=== PATIENT | male | born 1960 | race Caucasian/White ===

== ENCOUNTER 2019-05-10 15:22 | Inpatient (IN) | payer MEDICAID, SELFPAY ==
[2019-05-10] VITALS (7 sets, daily range): BP systolic 136–152; BP diastolic 86–93; PULSE 75–85; RESP 14–24; TEMP 36.7–36.9; O2SAT 96–98; BMI 34.4; BMI 33.4
--- NOTE | 2019-05-10 15:44 | EKG12_ITS ---
Test Reason : CP Blood Pressure : / mmHG Vent. Rate : 086 BPM Atrial Rate : 086 BPM P-R Int : 162 ms QRS Dur : 134 ms QT Int : 404 ms P-R-T Axes : 070 065 028 degrees QTc Int : 483 ms Normal sinus rhythm Right bundle branch block Cannot rule out Inferior infarct , age undetermined Abnormal ECG Confirmed by JAVIER GUDINO, WILFRED ([id number]), technical editor VERÓNICA DAMIAN ([id number]) on 05/11/2019 1:44:08 PM Referred By: Didi Sierra Confirmed By:WILFRED HERRERA MD
--- NOTE | 2019-05-10 16:02 | ED.VIS.CHEST ---
History of Present Illness Chief Complaint: Chest Pain Informant: Patient Narrative: Patient presenting for evaluation secondary to chest pain. Patient reports that about 2 hours prior to arrival he had an episode of chest pain. He reports that it was a heaviness in the left side of his chest started suddenly while he was at rest and was associated with a feeling of shortness of breath and some sweatiness. Patient states that he currently is pain-free. There is no exacerbating relieving factors associated with the chest pain. Patient denies any cardiovascular history, but he does have a history of hypertension hyperlipidemia and heavy smoking. He is never had provocative stress testing or cardiac catheterization in the past. Patient does report that he has been having profuse diarrhea this evening. He also reports that he has some urinary incontinence, but this is not new and he supposed to follow-up with a kidney specialist for this. Review of systems otherwise negative. Past Medical History - Allergies and Home Meds Allergies/Adverse Reactions: Allergies No Known Allergies Allergy (Verified 05/10/19 15:31) Primary Care Physician: Manolo Brewer DO [Primary Care Provider] - Surgical History: no surgical history Smoking Status: Current every day smoker Review of Systems All systems negative except as indicated General: Denies: Chills, Fever Cardiovascular: Reports: Chest pain. Denies: Palpitations Respiratory: Reports: Dyspnea Gastrointestinal: Reports: Diarrhea Genitourinary: Reports: - - Urinary incontinence Physical Exam Vital Signs/Narrative: Vital Signs Temp Pulse Resp BP Pulse Ox 05/10/19 15:29 98.4 F 85 14 136/90 H 97 General: Well nourished, Well developed, No Acute Distress Head: Normocephalic, Atraumatic Eyes: Perrl, EOMI ENT: Moist mucous membranes, No rhinorrhea, - - Patient's harris has tobacco staining Neck: Supple, Nontender Cardiovascular: Regular rate, Regular rhythm, Murmur - 2 out of 6 systolic at the right sternal border Respiratory: No distress, CTA bilaterally, Chest nontender Abdomen: Soft, Nontender, Nondistended, Normal bowel sounds Back: Nontender, Normal Inspection Extremities: Nontender, No edema Skin: Normal color, No rash Neurological: Alert, Oriented x3, Cranial nerves II-XII grossly intact, Normal Strength, Normal Sensation Psychological: Normal affect, Normal Mood Diagnostic/Tx/Re-eval - EKG Initial EKG Interpretation: - - Sinus rhythm of 86 with right bundle branch block morphology. Isoelectric ST segments. No gross changes from prior EKG. No evidence of acute ischemia or arrhythmia. - Medical Decision Making Patient presented secondary to chest pain. EKG showed a chronic right bundle branch block no ischemic changes. CBC chemistry and troponin were unremarkable. Chest x-ray was unremarkable. Patient's heart score is a 4, I believe he requires admission for cardiac rule out. I discussed this with the hospitalist and the patient will be admitted. ED Disposition - Plan for ED Patient: Disposition: Acute Care Hospital [facility] Diagnosis: Chest pain
--- NOTE | 2019-05-10 16:15 | RAD_ITS ---
STUDY: X-RAY CHEST REASON FOR EXAM: Male, 58 years old. Chest pain TECHNIQUE: PA and lateral views of the chest. COMPARISON: 08/05/2014. FINDINGS: There is a right azygos lobe The lungs are clear and expanded. There is no demonstrated pleural abnormality. Normal size heart. Normal mediastinum and michael. Normal visualized pulmonary arteries. Normal visualized aortic arch and descending thoracic aorta. Normal visualized thoracic spine. Normal visualized ribs, clavicles, and shoulders. There is no demonstrated abnormality of the visualized soft tissue structures of the upper abdomen. RAD/Chest PA and Lateral IMPRESSION: Normal x-ray examination of the chest. Electronically Signed: Anne Harrell, at 16:40 EDT Tel , Service support ,
[2019-05-10 16:28] LABS: Absolute Lymphocyte Count 1.06 X10^3/ul (0.83-4.51); Absolute Neutrophil Count 7.5 X10^3/uL (2.0-7.7); Basophil# 0.01 X10^3/uL; Basophil% 0.1 % (0-1); Hematocrit 43.1 % (40-54); Hemoglobin 14.6 g/dl (13.0-16.5); Lymphocyte # 1.06 X10^3/ul (4.0); Lymphocyte % 11.6 % (19-41); Mean Corp Hgb Conc 33.9 g/gl (32-36); Mean Corpuscular Hgb 29.6 pg (27.0-32.0); Mean Corpuscular Volume 87.2 fL (80-94); Mean Platelet Vol. 10.1 fl (6.2-12.0); Monocyte# 0.57 X10^3/uL; Monocyte% 6.3 % (0-10); Neutrophil # 7.45 X10^3/uL (2.7-7.7); Neutrophil % 81.8 % (47-70); POSITIVE COUNT NO; POSITIVE DIFFERENTIAL NO; POSITIVE MORPHOLOGY NO; Platelet Count 159 K/mm3 (150-450); RBC Distribution Width CV 13.2 % (11.6-14.6); RBC Distribution Width SD 41.3 fl (35.1-43.9); Red Blood Count 4.94 M/mm3 (4.6-6.2); White Blood Count 9.1 K/mm3 (4.4-11.0)
[2019-05-10] MEDS: Aspirin 81 MG TAB.CHEW 324 MG PO (16:29)
[2019-05-10 16:53] LABS: Anion Gap 10 (5-15); BUN 17 mg/dL (7-18); BUN/Creat Ratio 15.9 RATIO (10-20); Calcium,Total 9.4 mg/dL (8.5-10.1); Chloride 103 mmol/L (98-107); Creatinine, Serum 1.07 mg/dL (0.70-1.30); EST Glomerular Filtration Rate 76 mL/min (>60); Est Glom Filt Rate - Afr Amer 91 mL/min (>60); Estimated Creatinine Clearance 71.21 ml/min; Glucose 112 mg/dL (74-106); Sodium Level 138 mmol/L (136-145)
--- NOTE | 2019-05-10 18:16 | CASEMGMT ---
RN CM Assessment Introduced role of RN CM to patient, patient laila Capps at bedside.? Patient is alert, oriented and able?to participate in RN CM Assessment. ?Care providers, pharmacy, and demographics verified. Presentation: CP Admit Dx: CP Re-Admit: No Barriers/Issues: None PCP: Manolo Brewer Specialists: Psych- at [facility], states sees Nelsy Preferred Pharmacy: [place] Insurance: [employer] Benefit: Yes? LNOK: Laila Flanagan LW/HPOA: None, Would like to complete paperwork Living Arrangements:?Lives with Laila Capps and her Billy Nino in a 2 story home. Patient bedroom on upper level, approx 9-10 steps to bedroom. 3steps to enter home. ADL?s: Independent with ambulation and ADLs Transportation: Laila Capps's billy Gonzalez and same upon DC DME: None HHC: None SNF: None Goal: Home and does not think will have any needs. Denies questions/concerns. Aware CM remains available for any emerging needs. DC PLAN: Home with no needs anticipated at this time. Charmaine Miles RNCM
--- NOTE | 2019-05-10 18:17 | PCM.HP.STD ---
Problem List (1) Bipolar disorder Status: Chronic (2) Hyperlipidemia Status: Chronic (3) Hypertension Status: Chronic (4) Chest pain Status: Acute History of Present Illness Date of Admission: 05/10/19 Chief Complaint: Chest pain. The patient is a 58 year old M with past medical history as mentioned above presented to the emergency room because of chest pain. Patient presented with left-sided chest pain started around 2 hours before arriving to ED, on the left side of his chest, dull aching pain, 5-6 out of 10 severity, nonradiating, lasted for about 5 minutes, associated with shortness of breath and sweating and without aggravating or relieving factors. At this time, he is chest pain-free. He denied syncope, presyncope, palpitation or dizziness. In the emergency department, his vital signs were stable. His routine blood work was unremarkable. EKG revealed normal sinus rhythm with right bundle branch block which is chronic, no acute ischemic changes. Troponin was negative. Chest x-ray showed no acute findings. He is being admitted for chest pain for evaluation. Past Medical History Past Medical History (Chronic Problems): Chronic Problems Bipolar disorder (Chronic) Hyperlipidemia (Chronic) Hypertension (Chronic) Allergies No Known Allergies Allergy (Verified 05/10/19 15:31) Home Medications: Ambulatory Orders Medication Instructions Recorded Atenolol [Tenormin (beta ree)] 100 mg PO DAILY 05/10/19 Colestipol HCl 1 gm PO BID 05/10/19 Lansoprazole 30 mg PO DAILY 05/10/19 [place] Carbonate [[place] 900 mg PO QHS 05/10/19 Carbonate ER] Lorazepam [Ativan] 0.5 mg PO TID 05/10/19 Risperidone 8 mg PO QHS 05/10/19 Surgical History: appendectomy Psychiatric History: Anxiety, Bipolar Smoking Status: Current every day smoker Tobacco Use: Cigarettes Alcohol: None Drugs: None - *Family History Maternal History Items: - - No family history of CAD, hypertension or diabetes. Paternal History Items: - - No family history of CAD, hypertension or diabetes. Review of Systems Constitutional: Denies: Anorexia, Chills, Fever, Weakness Eyes: Denies: Blurred vision, Double vision, Drainage, Redness HEENT: Denies: Difficulty Hearing, Ear Pain, Eye Pain, Nasal Congestion, Sore Throat Cardiovascular: Reports: Chest Pain, Light Headedness. Denies: Edema, Heaviness, Orthopnea, Palpitations, Paroxysmal Noc. Dyspnea, Syncope Respiratory: Reports: Shortness of breath at rest. Denies: Cough, Hemoptysis, Pleuritic Pain, Sputum production, Wheezing Gastrointestinal: Reports: Nausea. Denies: Abdominal Pain, Constipation, Diarrhea, Vomiting Genitourinary: Denies: Dysuria, Frequency, Hematuria Musculoskeletal: Denies: Arm Pain, Back Pain, Foot Pain Skin: Denies: Dryness, Rash Neurological: Denies: Balance problems, Double vision, Change in Speech, Slurred speech, Focal weakness, Numbness, Tingling Psychiatric: Reports: Anxiety. Denies: Depression Endocrine: Denies: Change in Body Habitus, Polydipsia, Polyuria VTE Information - Inpt Only VTE Present on Admission: No VTE Mechan Device Prophylaxis: None VTE Pharm Prophylaxis ordered?: No Patient Problems: Active and Suspected Problems Chest pain (Acute) - Physical Exam General: Alert, Oriented x3, Cooperative, No apparent distress HEENT: Atraumatic, PERRLA, EOMI, Normocephalic Oral: Moist Mucosa, No Gingival or Mucosal Lesions/ Ulcerations Neck: Supple, No JVD, Negative Carotid Bruits, Trachea Midline, Thyroid Normal Size and Texture Lungs: Clear to auscultation, Normal air movement, No rhonchi, No wheeze, No rales, Diminished Cardiovascular: Regular rate, Regular Rhythm, Normal S1, Normal S2, PMI Normal Abdomen: Bowel Sounds Present, Soft, Non Tender, Non-Distended, No Hepato-splenomegaly Extremities: No clubbing, No cyanosis, No edema Skin: No rashes, No breakdown Lymphatic: No Cervical, Supraclavicular, or Inguinal Adenopathy Neurological: Cranial nerves II-XII grossly intact, Motor Exam 5/5 strength throughout Psych/Mental Status: Normal Affect, Impulsive Vital Signs Temp Pulse Resp BP Pulse Ox 98.4 F 77 21 H 152/92 H 96 05/10/19 15:29 05/10/19 18:03 05/10/19 18:03 05/10/19 18:03 05/10/19 18:03 Oxygen Delivery Method Room Air Weight: 219 lb 12.814 oz Body Mass Index (BMI) 34.4 Laboratory Tests Past 24 Hrs 05/10/19 05/10/19 16:10 16:10 WBC 9.1 RBC 4.94 Hgb 14.6 Hct 43.1 MCV 87.2 MCH 29.6 MCHC 33.9 RDW 13.2 RDW Differential 41.3 Plt Count 159 MPV 10.1 Immature Gran % (Auto) 0.200 Neut % (Auto) 81.8 H Lymph % (Auto) 11.6 L Nicholas % (Auto) 6.3 Eos % (Auto) 0.0 Baso % (Auto) 0.1 Absolute Neuts (auto) 7.5 Absolute Lymphs (auto) 1.06 Total Counted Not Reportable Sodium 138 Potassium 4.0 Chloride 103 Carbon Dioxide 25.0 Anion Gap 10 BUN 17 Creatinine 1.07 Estim Creat Clear Calc 71.21 Est GFR (MDRD) Af Amer 91 Est GFR (MDRD) Non-Af 76 BUN/Creatinine Ratio 15.9 Glucose 112 H Calcium 9.4 Troponin I < 0.015 Clinical Impression(s) from Imaging Studies Chest X-Ray 05/10/19 16:15 IMPRESSION: Normal x-ray examination of the chest. Electronically Signed: Anne Harrell, at 16:40 EDT Tel , Service support , Assessment/Plan All Active Problems Chest pain (Acute) This is a 58 years old male patient presented to the emergency room because of chest pain and he is being admitted for evaluation. #1 chest pain: Risk factors are hypertension, hyperlipidemia and smoking. No family history of premature CAD. EKG revealed no acute ischemic changes, troponin is negative. Chest x-ray was unremarkable. Plan: Admit to PCU for observation, cardiac monitoring, serial cardiac enzymes, sublingual nitroglycerin PRN for pain, IV fluids, IV antiemetics, start baby aspirin, fasting lipid profile, nuclear stress test tomorrow morning if cardiac enzymes are negative. #2 hypertension: Blood pressure stable, hold atenolol for stress test tomorrow morning, IV hydralazine PRN. #3 hyperlipidemia: Continue colestipol, fasting lipid profile. #4 bipolar disorder/anxiety: Stable, continue lithium, Ativan and risperidone. #5 DVT prophylaxis: Low risk patient, no prophylaxis indicated. This note was generated with [employer] software. It may contain incorrect words, spelling, and punctuation that were not noted in checking the note before signing. Code Visit OBSV E&M: 90395 Initial observation care L3
--- NOTE | 2019-05-10 19:25 | EKG12_ITS ---
Test Reason : CP ADMIT Blood Pressure : / mmHG Vent. Rate : 075 BPM Atrial Rate : 075 BPM P-R Int : 166 ms QRS Dur : 128 ms QT Int : 420 ms P-R-T Axes : 063 064 029 degrees QTc Int : 469 ms Normal sinus rhythm Right bundle branch block Abnormal ECG When compared with ECG of 10-MAY-2019 15:32, MANUAL COMPARISON REQUIRED, DATA IS UNCONFIRMED Confirmed by SVETLANA CHRISTIANSEN ([id number]), metropolitan editor VERÓNICA DAMIAN ([id number]) on 05/13/2019 2:00:02 PM Referred By: Didi Sierra Confirmed By:SVETLANA CHRISTIANSEN
[2019-05-10] MEDS: LORazepam 0.5 MG Tablet PO (21:39)
[2019-05-10] MEDS: 0.9% Normal Saline 1,000 ML 100 ML IV (21:39)
[2019-05-10] MEDS: RisperiDONE 2 MG Tablet 8 MG PO (21:41)
[2019-05-10] MEDS: Acetaminophen 325 MG Tablet 650 MG PO (22:36)
[2019-05-11] VITALS (14 sets, daily range): BP systolic 141–149; BP diastolic 73–89; PULSE 71–125; RESP 16–32; TEMP 36.6–39.6; O2SAT 95–100
[2019-05-11] MEDS: Acetaminophen 325 MG Tablet 650 MG PO (05:43)
[2019-05-11] MEDS: LORazepam 0.5 MG Tablet PO ×3 (05:44→21:45)
--- NOTE | 2019-05-11 05:46 | NURSING ---
pt had some ekg changes this am, up to the restroojm, c/o sob once back in the bed. temp 103.3 ta, 101.3 oral, pt does feel warm. tylenol given.
[2019-05-11 05:47] LABS: Absolute Lymphocyte Count 0.75 X10^3/ul (0.83-4.51); Absolute Neutrophil Count 7.1 X10^3/uL (2.0-7.7); Eosinophil# 0.01 X10^3/uL; Eosinophils% 0.1 % (0-5); Hematocrit 41.8 % (40-54); Hemoglobin 13.9 g/dl (13.0-16.5); Lymphocyte # 0.75 X10^3/ul (4.0); Lymphocyte % 8.9 % (19-41); Mean Corp Hgb Conc 33.3 g/gl (32-36); Mean Corpuscular Hgb 29.7 pg (27.0-32.0); Mean Corpuscular Volume 89.3 fL (80-94); Mean Platelet Vol. 10.8 fl (6.2-12.0); Monocyte# 0.56 X10^3/uL; Monocyte% 6.6 % (0-10); Neutrophil # 7.14 X10^3/uL (2.7-7.7); Neutrophil % 84.3 % (47-70); Platelet Count 158 K/mm3 (150-450); RBC Distribution Width CV 13.2 % (11.6-14.6); RBC Distribution Width SD 43.3 fl (35.1-43.9); Red Blood Count 4.68 M/mm3 (4.6-6.2); White Blood Count 8.5 K/mm3 (4.4-11.0)
[2019-05-11 05:52] LABS: International Normalized Ratio 1.1; Prothrombin Time (Protime)PT. 14.3 SECONDS (11.7-14.9)
[2019-05-11 05:53] LABS: POSITIVE COUNT NO; POSITIVE DIFFERENTIAL NO; POSITIVE MORPHOLOGY NO; Partial Thromboplast Time 31.8 Seconds (24.1-36.2)
--- NOTE | 2019-05-11 05:55 | EKG12_ITS ---
Test Reason : AM EKG Blood Pressure : / mmHG Vent. Rate : 124 BPM Atrial Rate : 124 BPM P-R Int : 142 ms QRS Dur : 118 ms QT Int : 348 ms P-R-T Axes : 073 071 012 degrees QTc Int : 499 ms Sinus tachycardia Inferior-posterior infarct , age undetermined Abnormal ECG When compared with ECG of 10-MAY-2019 19:04, MANUAL COMPARISON REQUIRED, DATA IS UNCONFIRMED Confirmed by SVETLANA CHRISTIANSEN ([id number]), writer editor VERÓNICA DAMIAN ([id number]) on 05/13/2019 2:01:50 PM Referred By: Didi Sierra Confirmed By:SVETLANA CHRISTIANSEN
--- NOTE | 2019-05-11 05:56 | NURSING ---
DR CAN NOTIFIED OF THE PTS TEMP , TACHYCARDIA AND EKG CHANGES. SHE WILL PUT IN ORDERS FOR BLOOD CULTURES.
--- NOTE | 2019-05-11 06:00 | PCM.PN.BLA ---
Progress Note night hospitalist: Patient is a 58-year-old male admitted to the hospital on 05/10/2019 complaining of chest pain. EKG showed right bundle branch block with first-degree AV block with no suspicious ST or T wave changes. Troponin x2 has been negative. Chest x-ray at admission showed no pleural effusions, infiltrates or pulmonary vascular congestion. Repeat EKG this a.m. prior to scheduled stress test no chest pain shows tachycardia with right bundle branch block and first-degree AV block, unchanged from prior EKG with the exception of tachycardia. Patient is febrile with temp to 103.4 ?F temporal. He is having diarrhea. Enteric pathogen panel has been ordered. We will also order fecal leukocytes, O&P, UA and blood cultures x2. C. difficile has also been ordered. No antibiotics at this time.
[2019-05-11 06:14] LABS: Anion Gap 9 (5-15); BUN 13 mg/dL (7-18); BUN/Creat Ratio 13.7 RATIO (10-20); Chloride 105 mmol/L (98-107); Cholesterol 155 mg/dL (200); Creatinine, Serum 0.95 mg/dL (0.70-1.30); EST Glomerular Filtration Rate 87 mL/min (>60); Est Glom Filt Rate - Afr Amer 105 mL/min (>60); Estimated Creatinine Clearance 80.21 ml/min; Glucose 120 mg/dL (74-106); High Density Lipoprotein 36 mg/dL; Potassium 3.7 mmol/L (3.5-5.1); Sodium Level 138 mmol/L (136-145); Triglycerides 139 mg/dL; Very Low Density Lipoprotein 28 mg/dL (5-40)
[2019-05-11] MEDS: Aspirin E.C. 81 MG Tablet PO (06:23)
[2019-05-11 07:30] LABS: Mucous, Urine 0 SEEN /hpf (<or=2+); Squamous Epithelial Cells - UA 0 SEEN /hpf (0-5); White Blood Cells 0 SEEN /hpf (0-5)
[2019-05-11 07:59] LABS: Color, Urine Yellow (Yellow); Glucose, Dipstick Normal (Normal); Ketone-Dipstick Negative (Negative); Leukocyte Esterase-Dipstick Negative /ul (Negative); Nitrite-Dipstick Negative (Negative); Occult Blood-Urine 25 /ul (Negative); Protein-Dipstick 100 mg/dl (Negative); Urine Bilirubin Dipstick Negative (Negative); Urine Clarity Clear (Clear); Urine Urobilinogen Normal (Normal); Urine pH 6.5 (5.0 - 8.0)
[2019-05-11 08:13] LABS: Red Blood Cells-Urine 0-5 SEEN /hpf (0-5)
[2019-05-11 08:14] LABS: Bacteria RARE /hpf (None Seen)
--- NOTE | 2019-05-11 08:19 | ECHOD_ITS ---
Reason For Study: CHEST PAIN Procedure This was a 2D Doppler, Color Flow transthoracic echocardiogram. Exam performed portable in patient room. Left Ventricle Normal LV size. Left ventricular systolic function is hyperdynamic. The estimated ejection fraction is 75 %. Transmitral doppler flow suggestive of impaired relaxation of left ventricle. No regional wall motion abnormalities noted. Right Ventricle Normal RV size. Normal systolic function. Atria Normal left atrium. Normal right atrium. No doppler evidence for ASD. Mitral Valve There is no mitral annular calcification. Normal mitral valve. Trivial mitral valve insufficiency. Tricuspid Valve Normal tricuspid valve. Trivial tricuspid valve insufficiency. Right ventricular systolic pressure estimated to be 10 mmHg. Aortic Valve Trisinus/trileaflet aortic valve. Mild focal aortic valve calcification. Pulmonic Valve The pulmonic valve is not well visualized. Trivial pulmonic valve insufficiency. Great Vessels Normal sized aortic root. Pericardium/Pleural No pericardial effusion. MMode/2D Measurements & Calculations LVIDd: 4.0 cm IVSd: 1.2 cm Ao root diam: 3.7 cm LVIDs: 2.3 cm LVPWd: 1.2 cm RVDd: 3.6 cm FS: 42.4 % LAV(MOD-bp): 36.6 ml LVAd ap4: 25.5 cm2 SV(MOD-sp4): 46.4 ml LAV(MOD-bp) Indexed: 17.6 ml/m2 EDV(MOD-sp4): 64.3 ml LAV(MOD-sp2): 41.2 ml EDV(sp4-el): 67.5 ml LAV(MOD-sp4): 29.5 ml LVAs ap4: 10.8 cm2 ESV(MOD-sp4): 17.9 ml ESV(sp4-el): 16.8 ml EF(MOD-sp4): 72.2 % EF(sp4-el): 75.0 % SV(sp4-el): 50.6 ml LA A4 area: 13.4 cm2 LA dimension(2D): 3.9 cm RA A4 area: 11.4 cm2 Time Measurements MV dec time: 0.38 sec Doppler Measurements & Calculations MV E max lázaro: 46.5 cm/sec Lat Peak E' Lázaro: 7.7 cm/sec Med Peak E' Lázaro: 6.3 cm/sec MV A max lázaro: 65.0 cm/sec E/E' lat: 6.0 E/E' med: 7.3 MV E/A: 0.72 Ao V2 max: 132.0 cm/sec LV V1 max: 133.9 cm/sec PA V2 max: 125.0 cm/sec Ao max P.0 mmHg LV V1 max P.2 mmHg TR max lázaro: 131.2 cm/sec TR max P.9 mmHg Interpretation Summary Left ventricular systolic function is hyperdynamic. The estimated ejection fraction is 75 %. Trivial mitral valve insufficiency. Trivial tricuspid valve insufficiency. Mild focal aortic valve calcification. Trivial pulmonic valve insufficiency. Right ventricular systolic pressure estimated to be 10 mmHg. Transmitral doppler flow suggestive of impaired relaxation of left ventricle Ordering Physician: Akua Mendes Referring Physician: MICHELLE HILTON Performed By: Lisha Mcpherson, MAYLIN, RVT
[2019-05-11] MEDS: 0.9% Normal Saline 1,000 ML 120 ML IV ×2 (08:57→21:45)
--- NOTE | 2019-05-11 09:50 | CASEMGMT ---
SW spoke with patient and his niece regarding advance directives. Patient was not feeling well as he was not allowed to eat. SW offered to check back later and they were in agreement with this plan. Johanne WEIR MSW
--- NOTE | 2019-05-11 11:21 | PCM.PN.HOSP ---
Patient Problems: Active and Suspected Problems Chest pain (Acute) Subjective: Patient seen and examined. He was admitted for chest pain yesterday. However during the night, he developed a fever and became tachycardic and tachypneic as well as started having diarrhea. Stool for enteric pathogen was sent and will start on antibiotics at that time. However this morning he still noted to be febrile, tachypneic and tachycardic. Patient denies any fever or chills but does admit to some mild shortness of breath. He denies any chest pain or palpitations, dizziness, or vomiting. He has not had any episodes of diarrhea this morning. Labs and vitals reviewed. He is now on 2 L of oxygen. He however does not have any leukocytosis. Vitals/I&O's: Vital Signs Temp Pulse Resp BP Pulse Ox 98.4 F 110 H 20 H 149/89 H 99 05/11/19 09:50 05/11/19 09:50 05/11/19 09:50 05/11/19 09:50 05/11/19 09:50 Oxygen Flow Rate (L/min) 2 Oxygen Delivery Method Room Air Weight: 213 lb 6.519 oz Body Mass Index (BMI) 33.4 Intake and Output for Last 24 Hours 05/09/19 05/10/19 05/11/19 23:59 23:59 23:59 Intake Total 1120 / 1120 Balance 1120 / 1120 General: Alert, Oriented x3, Cooperative, Lethargic HEENT: Atraumatic, PERRLA, EOMI, Normocephalic Oral: Dry Mucosa Neck: Supple, No JVD, Negative Carotid Bruits Lungs: - - mildly decreased breath sounds bibasally, no wheezes or rales. on 2L of oxygen Cardiovascular: Normal S1, Normal S2, No murmurs, Tachycardic Abdomen: Bowel Sounds Present, Soft, Non Tender, Non-Distended, No Hepato-splenomegaly Extremities: No clubbing, No cyanosis, No edema, Capillary Refill Less than 3 Seconds Skin: No rashes, No breakdown Musculoskeletal: No Tenderness to Palpation of Joints or Extremities Lymphatic: No Cervical, Supraclavicular, or Inguinal Adenopathy Neurological: Cranial nerves II-XII grossly intact, Neuro grossly intact, Motor Exam 5/5 strength throughout Psych/Mental Status: Normal Affect, Appropriate, Alert and oriented to time, place, person, mood and affect Microbiology Past 72 Hours 05/11/19 03:57 Stool Stool Lactoferrin - Final 05/11/19 03:57 Stool C. difficile DNA Amplification - Final Laboratory Results 05/10/19 16:10: WBC 9.1, RBC 4.94, Hgb 14.6, Hct 43.1, MCV 87.2, MCH 29.6, MCHC 33.9, RDW 13.2, RDW Differential 41.3, Plt Count 159, MPV 10.1, Immature Gran % (Auto) 0.200, Neut % (Auto) 81.8 H, Lymph % (Auto) 11.6 L, Mcdowell % (Auto) 6.3, Eos % (Auto) 0.0, Baso % (Auto) 0.1, Absolute Neuts (auto) 7.5, Absolute Lymphs (auto) 1.06, Total Counted Not Reportable 05/10/19 16:10: Sodium 138, Potassium 4.0, Chloride 103, Carbon Dioxide 25.0, Anion Gap 10, BUN 17, Creatinine 1.07, Estim Creat Clear Calc 71.21, Est GFR (MDRD) Af Amer 91, Est GFR (MDRD) Non-Af 76, BUN/Creatinine Ratio 15.9, Glucose 112 H, Calcium 9.4, Troponin I < 0.015 05/10/19 20:40: Troponin I < 0.015 05/10/19 23:05: Troponin I < 0.015 05/11/19 04:58: Sodium 138, Potassium 3.7, Chloride 105, Carbon Dioxide 24.0, Anion Gap 9, BUN 13, Creatinine 0.95, Estim Creat Clear Calc 80.21, Est GFR (MDRD) Af Amer 105, Est GFR (MDRD) Non-Af 87, BUN/Creatinine Ratio 13.7, Glucose 120 H, Calcium 9.0, Triglycerides 139, Cholesterol 155, LDL Cholesterol 91, VLDL Cholesterol 28, HDL Cholesterol 36 L 05/11/19 04:58: WBC 8.5, RBC 4.68, Hgb 13.9, Hct 41.8, MCV 89.3, MCH 29.7, MCHC 33.3, RDW 13.2, RDW Differential 43.3, Plt Count 158, MPV 10.8, Immature Gran % (Auto) 0.100, Neut % (Auto) 84.3 H, Lymph % (Auto) 8.9 L, Mcdowell % (Auto) 6.6, Eos % (Auto) 0.1, Baso % (Auto) 0.0, Absolute Neuts (auto) 7.1, Absolute Lymphs (auto) 0.75 L, Total Counted Not Reportable 05/11/19 04:58: PT 14.3, INR 1.1, APTT 31.8 05/11/19 06:20: Urine Color Yellow, Urine Clarity Clear, Urine pH 6.5, Ur Specific [place] 1.010, Urine Protein 100 H, Urine Glucose (UA) Normal, Urine Ketones Negative, Urine Occult Blood 25 H, Urine Nitrite Negative, Urine Bilirubin Negative, Urine Urobilinogen Normal, Ur Leukocyte Esterase Negative, Urine RBC 0-5 SEEN, Urine WBC 0 SEEN, Ur Squamous Epith Cells 0 SEEN, Urine Bacteria RARE, Urine Mucus 0 SEEN Diagnostic Data Chest X-Ray 05/10/19 16:15 IMPRESSION: Normal x-ray examination of the chest. Electronically Signed: Anne Harrell, at 16:40 EDT Tel , Service support , Current Medications Acetaminophen (Tylenol) 650 mg PO Q6H PRN PRN PRN Reason: Mild pain 1-3/Temp > 100.7 F Last Admin: 05/11/19 05:43 Dose: 650 mg Documented by: Aspirin (Ecotrin) 81 mg PO DAILY@0800 [facility] Last Admin: 05/11/19 06:23 Dose: 81 mg Documented by: Colestipol HCl (Colestid Tablet) 1 gm PO BID [facility] Hydralazine HCl (Apresoline Iv) 5 mg IV Q6H PRN PRN PRN Reason: for SBP>160 Vancomycin IV Pharmacy to Dose (1 ea/ Sodium Chloride) 500 mls @ 250 mls/hr IV X1 PRN; Protocol PRN Reason: Rx to Dose Piperacillin Sod/Tazobactam (Sod 3.375 gm/ Sodium Chloride) 50 mls @ 12.5 mls/hr IV Q8 [facility] Last Admin: 05/11/19 08:56 Dose: 12.5 mls/hr Documented by: Sodium Chloride () 1,000 mls @ 120 mls/hr IV .Q8H20M [facility] Last Admin: 05/11/19 08:57 Dose: 120 mls/hr Documented by: Vancomycin HCl 1,750 mg/ (Sodium Chloride) 535 mls @ 250 mls/hr IV Q12H [facility] Last Admin: 05/11/19 10:54 Dose: 250 mls/hr Documented by: [place] Carbonate (Eskalith Cr) 900 mg PO QHS [facility] Lorazepam (Ativan) 0.5 mg PO TID [facility] Last Admin: 05/11/19 05:44 Dose: 0.5 mg Documented by: Nitroglycerin (Nitrostat) 0.4 mg SUBLINGUAL Q5M PRN PRN Reason: CHEST PAIN Ondansetron HCl (Zofran) 4 mg IV Q8H PRN PRN PRN Reason: NAUSEA/VOMITING Pantoprazole Sodium (Protonix) 40 mg PO DAILY [facility] Last Admin: 05/11/19 10:41 Dose: Not Given Documented by: Risperidone (Risperdal) 8 mg PO QHS [facility] Last Admin: 05/10/19 21:41 Dose: 8 mg Documented by: Sodium Chloride () 10 - 40 ml IV UD PRN PRN Reason: SALINE FLUSH Medical Necessity - Tobacco Use Smoking Status: Current every day smoker Tobacco Use: Cigarettes Assessment/Plan All Active Problems Chest pain (Acute) 1. Sepsis due to possible community acquired pneumonia vs gastroenteritis patient was admitted with chest pain however, overnight he developed diarrhea; he subsequently spiked a fever, peaking at 103.3F, and was also tachycardic and tachypneic patient denies any cough, but is very drowsy during review has no leucocytosis; SIRS criteria is 3/4 this morning CXR was read as normal, but per my review, there appears to be a questionable right lower lobe opacity blood cultures pending start IV vancomycin and zosyn check urine for strep and legionella UA showed no evidence of UTI check lactic acid, and hydrate with IVF NS 500cc bolus, and continue with 75cc/hr get 2D echo 2. Gastroenteritis: diarrhea is improving. Stool for enteric pathogen and C Diff pending. Hydrate with IVF. 3. Chest pain: didnt recur overnight. In light of sepsis, will hold off on stress test for now until he is stable and acute process has resolved. Troponins x3 were negative. Continue baby aspirin. 4. Hyperlipidemia: On colestipol. Lipid panel was within normal limits. 5. Hypertension: Atenolol on hold as he was due to stress test this morning. IV hydralazine PRN. Continue atenolol. 6. Bipolar disorder and anxiety: On lithium, Ativan and Risperdal. DVT prophylaxis: will start Lovenox. Code Visit Inpatient E&M: 86174 Subs Hosp L3
[2019-05-11 12:03] LABS: Lactic Acid 1.7 mmol/L (0.4-2.0)
[2019-05-11] MEDS: Enoxaparin 40 MG/0.4 ML Syringe SC (13:08)
[2019-05-11] MEDS: Atenolol 100 MG Tablet PO (13:08)
--- NOTE | 2019-05-11 13:45 | CASEMGMT ---
This RN CM to room to complete CM assessment and pt is sleeping without distress. Pt does not awaken to knock on door or verbal stimuli at this time. Will attempt again later. SStaten RN CM
[2019-05-11] MEDS: RisperiDONE 2 MG Tablet 8 MG PO (21:49)
[2019-05-12] VITALS (12 sets, daily range): BP systolic 119–139; BP diastolic 71–83; PULSE 60–95; RESP 15–20; TEMP 36.6–36.8; O2SAT 94–98
[2019-05-12] MEDS: LORazepam 0.5 MG Tablet PO ×3 (05:28→22:52)
[2019-05-12 07:08] LABS: Absolute Neutrophil Count 4.6 X10^3/uL (2.0-7.7); Basophil# 0.01 X10^3/uL; Basophil% 0.1 % (0-1); Eosinophil# 0.11 X10^3/uL; Eosinophils% 1.5 % (0-5); Hematocrit 38.6 % (40-54); Hemoglobin 12.7 g/dl (13.0-16.5); Lymphocyte % 23.8 % (19-41); Mean Corp Hgb Conc 32.9 g/gl (32-36); Mean Corpuscular Hgb 29.5 pg (27.0-32.0); Mean Corpuscular Volume 89.6 fL (80-94); Mean Platelet Vol. 10.5 fl (6.2-12.0); Monocyte# 0.74 X10^3/uL; Monocyte% 10.3 % (0-10); Neutrophil # 4.58 X10^3/uL (2.7-7.7); Neutrophil % 64.2 % (47-70); Platelet Count 143 K/mm3 (150-450); RBC Distribution Width CV 13.5 % (11.6-14.6); RBC Distribution Width SD 43.5 fl (35.1-43.9); Red Blood Count 4.31 M/mm3 (4.6-6.2); White Blood Count 7.2 K/mm3 (4.4-11.0)
[2019-05-12 07:12] LABS: POSITIVE COUNT NO; POSITIVE DIFFERENTIAL NO; POSITIVE MORPHOLOGY NO
[2019-05-12 08:06] LABS: Anion Gap 5 (5-15); BUN 8 mg/dL (7-18); BUN/Creat Ratio 7.3 RATIO (10-20); Calcium,Total 8.8 mg/dL (8.5-10.1); Chloride 109 mmol/L (98-107); Creatinine, Serum 1.09 mg/dL (0.70-1.30); EST Glomerular Filtration Rate 74 mL/min (>60); Est Glom Filt Rate - Afr Amer 89 mL/min (>60); Estimated Creatinine Clearance 69.91 ml/min; Glucose 97 mg/dL (74-106); Sodium Level 141 mmol/L (136-145)
[2019-05-12] MEDS: 0.9% Normal Saline 1,000 ML 120 ML IV (08:11)
[2019-05-12] MEDS: Enoxaparin 40 MG/0.4 ML Syringe SC (08:12)
[2019-05-12] MEDS: Atenolol 100 MG Tablet PO (08:13)
[2019-05-12] MEDS: Aspirin E.C. 81 MG Tablet PO (08:13)
[2019-05-12] MEDS: Pantoprazole Sodium 40 MG Tablet PO (08:13)
--- NOTE | 2019-05-12 11:01 | NURSING ---
vanc not on unit for pt administration-Rx aware of missing dose
--- NOTE | 2019-05-12 11:02 | CASEMGMT ---
FORTINO RED assessment: Face to Face with patient for initial transition planning/care coordination assessment. FORTINO RED introduced self and role at [facility], pt voices understanding and consents to assessment at this time. Pt is sitting up in bed in no distress at this time. Pt is A/Ox4 at this time and answers all questions appropriately at this time. Care providers, pharmacy, and demographics verified at this time. PCP: [facility] Specialists: Pt states currently has no specialists. Preferred Pharmacy: [facility] Insurance: [facility] Prescription Benefit: [employer] Living Will/HPOA: Pt states has not currently have LW/HPOA but was given paperwork by Janice MILLARD and states that 'my niece is working on that.' LNOK: Génesis Flanagan, niece; Judy Purvis, friend Living Arrangements: Pt states lives with niece in 2 story home and states no concerns at home at this time. Pt states is independent with ADL's. Transportation: Pt states nephew drives and states no transportation concerns at this time. DME/HHC: Pt states has no current DME or need for any at this time. Pt states no hx of HHC or SNF in the past. Pt states no concerns with going home at time of discharge. Pt states is disabled. Pt states smokes a 1/2pk/day and states does not drink ETOH. Pt states no further concerns/needs at this time. CM to follow for PT/OT notes and for any further discharge planning/needs. Advised pt to ask for CM if any further questions/concerns/needs arise, voices understanding. Pt Goal: Home Plan: Home SStaten FORTINO RED
--- NOTE | 2019-05-12 12:51 | PN_ITS ---
Patient Problems: Active and Suspected Problems Chest pain (Acute) Subjective: Patient seen and examined. He had an uneventful night. He had an episode of diarrhea this morning. He denies any fever, any chills, and palpitations or dizziness, no chest pain, otherwise negative. Labs and vitals reviewed. Vitals/I&O's: Vital Signs Temp Pulse Resp BP Pulse Ox 98.0 F 67 18 132/77 H 94 05/12/19 07:40 05/12/19 10:59 05/12/19 08:39 05/12/19 07:40 05/12/19 08:39 Oxygen Flow Rate (L/min) 2 Oxygen Delivery Method Room Air Weight: 213 lb 6.519 oz Body Mass Index (BMI) 33.4 Intake and Output for Last 24 Hours 05/10/19 05/11/19 05/12/19 23:59 23:59 23:59 Intake Total 1720 / 3184 3443 / 3443 Balance 1720 / 3184 3443 / 3443 General: Alert, Oriented x3, Cooperative, Lethargic HEENT: Atraumatic, PERRLA, EOMI, Normocephalic Oral: Dry Mucosa Neck: Supple, No JVD, Negative Carotid Bruits Lungs: - - mildly decreased breath sounds bibasally, no wheezes or rales. on 2L of oxygen Cardiovascular: Normal S1, Normal S2, No murmurs, Tachycardic Abdomen: Bowel Sounds Present, Soft, Non Tender, Non-Distended, No Hepato- splenomegaly Extremities: No clubbing, No cyanosis, No edema, Capillary Refill Less than 3 Seconds Skin: No rashes, No breakdown Musculoskeletal: No Tenderness to Palpation of Joints or Extremities Lymphatic: No Cervical, Supraclavicular, or Inguinal Adenopathy Neurological: Cranial nerves II-XII grossly intact, Neuro grossly intact, Motor Exam 5/5 strength throughout Psych/Mental Status: Normal Affect, Appropriate, Alert and oriented to time, place, person, mood and affect Microbiology Past 72 Hours 05/12/19 10:35 Urine, Clean Catch Streptococcus pneumoniae Antigen (M - Lisa l 05/12/19 10:35 Urine, Clean Catch Legionella Antigen - Final 05/11/19 06:20 Urine, Clean Catch Urine Culture - Preliminary Culture exhibits no growth. 05/11/19 03:57 Stool Stool Lactoferrin - Final 05/11/19 03:57 Stool C. difficile DNA Amplification - Final Laboratory Results 05/12/19 06:30: WBC 7.2, RBC 4.31 L, Hgb 12.7 L, Hct 38.6 L, MCV 89.6, MCH 29.5, MCHC 32.9, RDW 13.5, RDW Differential 43.5, Plt Count 143 L, MPV 10.5, Immature Gran % (Auto) 0.100, Neut % (Auto) 64.2, Lymph % (Auto) 23.8, [place] % (Auto) 10.3 H, Eos % (Auto) 1.5, Baso % (Auto) 0.1, Absolute Neuts (auto) 4.6, Absolute Lymphs (auto) 1.70, Total Counted Not Reportable 05/12/19 06:30: Sodium 141, Potassium 4.0, Chloride 109 H, Carbon Dioxide 27.0, Anion Gap 5, BUN 8, Creatinine 1.09, Estim Creat Clear Calc 69.91, Est GFR (MDRD) Af Amer 89, Est GFR (MDRD) Non-Af 74, BUN/Creatinine Ratio 7.3 L, Glucose 97, Calcium 8.8 Diagnostic Data Chest X-Ray 05/10/19 16:15 IMPRESSION: Normal x-ray examination of the chest. Electronically Signed: Anne Harrell, at 16:40 EDT Tel , Service support , Current Medications Acetaminophen (Tylenol) 650 mg PO Q6H PRN PRN PRN Reason: Mild pain 1-3/Temp > 100.7 F Last Admin: 05/11/19 05:43 Dose: 650 mg Documented by: Aspirin (Ecotrin) 81 mg PO DAILY@0800 [facility] Last Admin: 05/12/19 08:13 Dose: 81 mg Documented by: Atenolol (Tenormin (Beta Sanjuana)) 100 mg PO DAILY [facility] Last Admin: 05/12/19 08:13 Dose: 100 mg Documented by: Enoxaparin Sodium (Lovenox) 40 mg SC DAILY [facility] Last Admin: 05/12/19 08:12 Dose: 40 mg Documented by: Hydralazine HCl (Apresoline Iv) 5 mg IV Q6H PRN PRN PRN Reason: for SBP>160 Vancomycin IV Pharmacy to Dose (1 ea/ Sodium Chloride) 500 mls @ 250 mls/hr IV X1 PRN; Protocol PRN Reason: Rx to Dose Piperacillin Sod/Tazobactam (Sod 3.375 gm/ Sodium Chloride) 50 mls @ 12.5 mls/hr IV Q8 [facility] Last Admin: 05/12/19 05:28 Dose: 12.5 mls/hr Documented by: Sodium Chloride () 1,000 mls @ 120 mls/hr IV .Q8H20M [facility] Last Admin: 05/12/19 08:11 Dose: 120 mls/hr Documented by: Vancomycin HCl 1,750 mg/ (Sodium Chloride) 535 mls @ 250 mls/hr IV Q12H [facility] Last Admin: 05/12/19 11:05 Dose: 250 mls/hr Documented by: [place] Carbonate (Eskalith Cr) 900 mg PO QHS [facility] Lorazepam (Ativan) 0.5 mg PO TID [facility] Last Admin: 05/12/19 05:28 Dose: 0.5 mg Documented by: Nitroglycerin (Nitrostat) 0.4 mg SUBLINGUAL Q5M PRN PRN Reason: CHEST PAIN Ondansetron HCl (Zofran) 4 mg IV Q8H PRN PRN PRN Reason: NAUSEA/VOMITING Pantoprazole Sodium (Protonix) 40 mg PO DAILY [facility] Last Admin: 05/12/19 08:13 Dose: 40 mg Documented by: Risperidone (Risperdal) 8 mg PO QHS [facility] Last Admin: 05/11/19 21:49 Dose: 8 mg Documented by: Sodium Chloride () 10 - 40 ml IV UD PRN PRN Reason: SALINE FLUSH Medical Necessity - Tobacco Use Smoking Status: Current every day smoker Tobacco Use: Cigarettes Assessment/Plan All Active Problems Chest pain (Acute) 1. Sepsis due to possible community acquired pneumonia vs gastroenteritis * tachypnea and tachycardia have resolved * still had an episode of diarrhea this morning * on IV vancomycin and IV zosyn * urine for strep and legionella antigens negative. blood cultures pending * C Diff negative * stool ova and parasites and enteric pathogens pending * continue IV vancomycin and zosyn for now * 2D echo report * ; Normal left ventricular size with hyperdynamic left ventricular systolic function and EF of 75%. RVSP is 10 mmHg. * * 2. Gastroenteritis: Had an episode of diarrhea this morning. C. difficile is negative. Stool for enteric pathogen pending. 3. Chest pain: * didnt recur overnight. * Troponins x3 were negative. * Continue baby aspirin. * For stress test tomorrow, since patient has improved. 4. Hyperlipidemia: On colestipol. Lipid panel was within normal limits. 5. Hypertension: on atenolol. IV hydralazine prn. 6. Bipolar disorder and anxiety: On lithium, Ativan and Risperdal. DVT prophylaxis: lovenox. Code Visit Inpatient E&M: 36910 Subs Hosp L3
[2019-05-12] MEDS: RisperiDONE 2 MG Tablet 8 MG PO (22:52)
[2019-05-12 23:14] LABS: Vancomycin, Trough Level 12.1 ug/mL (5.0-15.0)
[2019-05-13] MEDS: 0.9% Normal Saline 1,000 ML 120 ML IV (00:01)
--- NOTE | 2019-05-13 00:51 | PCM.RX.CS ---
Consult Pharmacy has been consulted to manage selected antiobiotic: Vancomycin Type of Consult: Follow-up Suspected Infection: Sepsis Prior Doses of Antibiotics Received/Current Regimen: Medications Vancomycin HCl 1,500 mg/ (Sodium Chloride) 530 mls @ 250 mls/hr IV Q8H [facility] Discontinued Medications Vancomycin HCl 1,750 mg/ (Sodium Chloride) 535 mls @ 250 mls/hr IV Q12H [facility] Last Admin: 05/13/19 00:00 Dose: 250 mls/hr Labs: Sodium 141 mmol/L (136-145) 05/12/19 06:30 Potassium 4.0 mmol/L (3.5-5.1) 05/12/19 06:30 Chloride 109 mmol/L (98-107) H 05/12/19 06:30 Carbon Dioxide 27.0 mmol/L (21.0-32.0) 05/12/19 06:30 5 (5-15) 05/12/19 06:30 BUN 8 mg/dL (7-18) 05/12/19 06:30 1.09 mg/dL (0.70-1.30) 05/12/19 06:30 Est GFR (MDRD) Af Amer 89 mL/min (>60) 05/12/19 06:30 Est GFR (MDRD) Non-Af 74 mL/min (>60) 05/12/19 06:30 7.3 RATIO (10-20) L 05/12/19 06:30 Glucose 97 mg/dL (74-106) 05/12/19 06:30 Vancomycin Trough 12.1 ug/mL (5.0-15.0) 05/12/19 22:32 Microbiology: Microbiology 05/12/19 10:35 Urine, Clean Catch Streptococcus pneumoniae Antigen (M - Final 05/12/19 10:35 Urine, Clean Catch Legionella Antigen - Final 05/11/19 06:20 Urine, Clean Catch Urine Culture - Preliminary Culture exhibits no growth. 05/11/19 03:57 Stool Stool Lactoferrin - Final 05/11/19 03:57 Stool C. difficile DNA Amplification - Final Weight used for dosin.8 kg Estimated Creatinine Clearance: 70 Goal Trough: 15-20 mcg/mL Pharmacy Plan for Drug Dosing: Trough level 05/12/19 was 12.1, below the target range of 15-20. Dosing was increased to 1500mg q8h. Another trough will be drawn before 4th dose of new order. Pharmacy Service will continue to monitor and adjust dosing as required. Follow-Up Labs: Trough Vancomycin Labs to be done on [date and time ordered]: 05/14/19 @[id number]
--- NOTE | 2019-05-13 05:00 | EKG12_ITS ---
Test Reason : AM EKG Blood Pressure : / mmHG Vent. Rate : 072 BPM Atrial Rate : 072 BPM P-R Int : 156 ms QRS Dur : 126 ms QT Int : 444 ms P-R-T Axes : 065 063 028 degrees QTc Int : 486 ms Normal sinus rhythm Right bundle branch block Abnormal ECG When compared with ECG of 11-MAY-2019 05:33, MANUAL COMPARISON REQUIRED, DATA IS UNCONFIRMED Confirmed by ZEKE GUDINO, FIDE ([id number]), news copy editor VERÓNICA DAMIAN ([id number]) on 05/14/2019 12:44:24 PM Referred By: Didi Sierra Confirmed By:ISSAC ALANIS MD
[2019-05-13 05:44] LABS: Absolute Lymphocyte Count 1.85 X10^3/ul (0.83-4.51); Basophil# 0.01 X10^3/uL; Basophil% 0.2 % (0-1); Eosinophil# 0.14 X10^3/uL; Eosinophils% 2.6 % (0-5); Hematocrit 37.7 % (40-54); Hemoglobin 12.5 g/dl (13.0-16.5); Lymphocyte # 1.85 X10^3/ul (4.0); Lymphocyte % 33.9 % (19-41); Mean Corp Hgb Conc 33.2 g/gl (32-36); Mean Corpuscular Hgb 29.3 pg (27.0-32.0); Mean Corpuscular Volume 88.3 fL (80-94); Mean Platelet Vol. 10.3 fl (6.2-12.0); Monocyte% 9.2 % (0-10); Neutrophil # 2.95 X10^3/uL (2.7-7.7); Neutrophil % 53.9 % (47-70); Platelet Count 153 K/mm3 (150-450); RBC Distribution Width CV 13.4 % (11.6-14.6); RBC Distribution Width SD 42.6 fl (35.1-43.9); Red Blood Count 4.27 M/mm3 (4.6-6.2); White Blood Count 5.5 K/mm3 (4.4-11.0)
[2019-05-13 05:49] LABS: POSITIVE COUNT NO; POSITIVE DIFFERENTIAL NO; POSITIVE MORPHOLOGY NO
[2019-05-13 05:50] VITALS: BP 140/71; PULSE 63; RESP 18; TEMP 36.9; O2SAT 99
[2019-05-13 06:02] LABS: Anion Gap 6 (5-15); BUN 7 mg/dL (7-18); Calcium,Total 8.9 mg/dL (8.5-10.1); Chloride 116 mmol/L (98-107); Creatinine, Serum 0.88 mg/dL (0.70-1.30); EST Glomerular Filtration Rate 95 mL/min (>60); Est Glom Filt Rate - Afr Amer 115 mL/min (>60); Estimated Creatinine Clearance 86.59 ml/min; Glucose 93 mg/dL (74-106); Sodium Level 146 mmol/L (136-145)
[2019-05-13] MEDS: LORazepam 0.5 MG Tablet PO ×2 (06:02→14:30)
[2019-05-13 06:57] VITALS: PULSE 65
[2019-05-13] MEDS: Aspirin E.C. 81 MG Tablet PO (07:46)
[2019-05-13 07:51] LABS: International Normalized Ratio 1.1; Prothrombin Time (Protime)PT. 13.7 SECONDS (11.7-14.9)
[2019-05-13 10:58] VITALS: BP 137/79; PULSE 73; RESP 18; TEMP 36.6; O2SAT 99
[2019-05-13 11:00] VITALS: PULSE 73
[2019-05-13] MEDS: Atenolol 100 MG Tablet PO (11:04)
[2019-05-13] MEDS: Pantoprazole Sodium 40 MG Tablet PO (11:04)
--- NOTE | 2019-05-13 13:36 | STRESSREP_ITS ---
Stress Test Report Date: 05/13/2019 Procedure: Pharmacologic stress nuclear imaging study Indications: Chest pain Consent: Per the patient Procedure: The patient underwent pharmacologic (Regadenoson) evaluation with a peak heart rate of [85] beats per minute (52 %predicted maximal heart rate) and a peak blood pressure of 152/88 mmHg. The baseline ECG demonstrated normal sinus rhythm right bundle branch block. EKG during lexiscan infusion revealed no significant change from baseline. EKG post infusion revealed no significant change from baseline [There were no cardiac dysrhythmias pretest, during pharmacologic infusion, or recovery]. [There was no complaint of chest discomfort during pharmacologic infusion or recovery]. The examination was discontinued secondary to completion of protocol. Impression: 1. Lexiscan stress test test is negative for Lexiscan infusion induced EKG changes of ischemia. 2. Lexiscan stress test test is negative for Lexiscan infusion induced chest pain. 3. Results of the nuclear portion of the test is as below Myocardial perfusion imaging study: Technique: The patient was injected with 14.7 millicuries of technetium 99m Cardiolite and subsequently rest SPECT Cardiolite nuclear imaging was obtained in the horizontal long, vertical long, and short axis views. The patient underwent pharmacologic (Regadenoson) evaluation. Please see above for details. The patient was injected with 44.8 millicuries of technetium 99m Cardiolite and subsequently stress SPECT Cardiolite nuclear imaging was obtained in the horizontal long, vertical long, and short axis views. A gated Cardiolite study at peak stress was obtained. Interpretation: Rest and stress SPECT Cardiolite nuclear imaging status post realignment, normalization, and attenuation correction demonstrate early decrease in radioisotope uptake in the inferior wall on both the rest and stress images prior to attenuation correction. After recognition correction there is overall normal myocardial radioisotope uptake in both the rest and stress images gated images reveal no significant regional wall motion abnormalities. These findings are suggestive of diaphragmatic attenuation artifact with no evidence of significant ischemia or infarction. The reported LVEF is the 68 %. Impression: 1. There is no evidence of significant ischemia or infarction. 2. Estimated ejection fraction is 68%. This note was generated with adaffix software. It may contain incorrect words, spelling, and punctuation that were not noted in checking the note before signing.
--- NOTE | 2019-05-13 13:46 | DCINST_ITS ---
- Discharge Diagnoses Current Active Problems: Current Active and Chronic Problems Bipolar disorder (Chronic) Hyperlipidemia (Chronic) Hypertension (Chronic) Chest pain (Acute) You will use the following diet at home:: Cardiac Your food should be the consistency of: Regular Your liquids should be the consistency of: Regular/Thin Discharge Activity: Return to Normal Activity Weight Bearing Status: Weight bearing as tolerated Call your doctor if you observe: Fever of 101 or Higher, Shortness of breath, Chest pain Instructions: What Is Angina?, What Is Pneumonia?, Pneumonia Allergies/Adverse Reactions: Allergies No Known Allergies Allergy (Verified 05/10/19 15:31) Medications to take at Discharge Atenolol [Tenormin (beta ree)] 100 mg PO DAILY 05/10/19 Colestipol HCl 1 gm PO BID 05/10/19 Lansoprazole 30 mg PO DAILY 05/10/19 [place] Carbonate [[place] Carbonate ER] 900 mg PO QHS 05/10/19 Lorazepam [Ativan] 0.5 mg PO TID 05/10/19 Risperidone 8 mg PO QHS 05/10/19 Levofloxacin 750 mg PO DAILY #3 tab 05/13/19 The following prescriptions were given: Levofloxacin 750 mg PO DAILY #3 tab Transmission Status: Pending to [facility], [place], [facility] [place] - [id number] Primary Care Physician: Manolo Brewer DO [Primary Care Provider] - Please follow up with your Primary Care Physician in: one week Test Results: Test results from this visit will be discussed in further detail at your follow- up appointment, if applicable. Proposed Discharge Date: 05/13/19
--- NOTE | 2019-05-13 13:47 | PCM.DC.SUM ---
Discharge Date and Diagnosis - Problem List Patient Problems: Active and Suspected Problems Chest pain (Acute) Date of Admission: 05/10/19 Date of Discharge: 05/13/19 - Primary Discharge Diagnosis Active and Suspected Problems Chest pain (Acute) sepsis due to community acquired pneumonia community acquired pneumonia gastroenteritis - Secondary Discharge Diagnosis Chronic Problems Bipolar disorder (Chronic) Hyperlipidemia (Chronic) Hypertension (Chronic) Hospital Course and Treatment Imaging Results: 05/13/19 05:55 Nuclear Stress Test - Chemical [NM] AM (NON MEDS) Diagnostic Data Chest X-Ray 05/10/19 16:15 IMPRESSION: Normal x-ray examination of the chest. Electronically Signed: Anne Harrell, at 16:40 EDT Tel , Service support , Operations: None Procedures: Stress test Summary of Care Provided: The patient is a 58 year old M with a past medical history of bipolar disease, hypertension hyperlipidemia. He was admitted through the ED on 05/10/2019 with a complaint of left-sided chest pain which started about 2 hours prior to admission and was dull and aching, rated about 5-6 over 10 in severity, nonradiating lasted about 5 minutes and associated with shortness of breath and sweating. She has been unresolved at time he came into the ED. Troponin was negative and EKG showed no acute ST changes. Chest x-ray was read as showing no acute findings. He was admitted to manage for chest pain to rule out ACS. However, patient subsequently developed diarrhea and he became febrile as well as tachycardic. Patient also became tachypneic, requiring 2 L of oxygen. He did have any leukocytosis but SIRS criteria was 3 out of 4. Was therefore managed for sepsis due to possible community-acquired pneumonia versus gastroenteritis. All studies reviewed EKG and there appeared to be a questionable right lower lobe opacity. Blood cultures were obtained and patient was started on IV vancomycin and Zosyn. Urine for strep and Legionella antigens were negative and UA showed no evidence of infection. Lactic acid was also within normal limits. He was hydrated with IV fluids. C. difficile and stool for enteric pathogen were checked and were negative. Urine however cultured mixed gram-positive organisms. Patient's tachycardia and tachypnea resolved and he was weaned off of oxygen. He had a stress test on 05/13/2019 which was negative for any stress-induced ischemia. Patient remained stable and was discharged home on 05/13/1990 with a prescription for p.o. levofloxacin for 3 days. He is to follow-up with his primary care doctor within 1 week. Patient was seen and examined prior to discharge. He had no complaints and felt well. Diarrhea had resolved. Review of systems was otherwise negative. Labs and vitals reviewed. Home medication reviewed and reconciled. o/e: Vital Signs Height 5 ft 7 in Weight: 213 lb 6.519 oz Weight in Pounds 213.4 lbs Pulse Ox 99 Temperature 97.9 F Pulse Rate 73 Respiratory Rate 18 Blood Pressure [2nd BP] 136/86 Blood Pressure 137/79 Blood Pressure Position [2nd Semi-Fowlers BP] Blood Pressure Position Semi-Fowlers General: Alert, Oriented x3, Cooperative, HEENT: Atraumatic, PERRLA, EOMI, Normocephalic Oral: Dry Mucosa Neck: Supple, No JVD, Negative Carotid Bruits Lungs: - - mildly decreased breath sounds bibasally, no wheezes or rales. on room air. Cardiovascular: Normal S1, Normal S2, No murmurs, Tachycardic Abdomen: Bowel Sounds Present, Soft, Non Tender, Non-Distended, No Hepato-splenomegaly Extremities: No clubbing, No cyanosis, No edema, Capillary Refill Less than 3 Seconds Skin: No rashes, No breakdown Musculoskeletal: No Tenderness to Palpation of Joints or Extremities Lymphatic: No Cervical, Supraclavicular, or Inguinal Adenopathy Neurological: Cranial nerves II-XII grossly intact, Neuro grossly intact, Motor Exam 5/5 strength throughout Psych/Mental Status: Normal Affect, Appropriate, Alert and oriented to time, place, person, mood and affect Plan as above. Patient Problems: Active and Suspected Problems Chest pain (Acute) - Physical Exam Vital Signs Temp Pulse Resp BP Pulse Ox 97.9 F 73 18 137/79 H 99 05/13/19 10:58 05/13/19 11:00 05/13/19 10:58 05/13/19 10:58 05/13/19 10:58 Oxygen Flow Rate (L/min) 2 Oxygen Delivery Method Room Air Weight: 213 lb 6.519 oz Body Mass Index (BMI) 33.4 Intake and Output for Last 24 Hours 05/11/19 05/12/19 05/13/19 23:59 23:59 23:59 Intake Total 1720 / 3184 5349 / 6579 2517 / 2517 Output Total 400 / 400 1180 / 1180 Balance 1720 / 3184 4949 / 6179 1337 / 1337 Microbiology Past 72 Hours 05/11/19 06:50 Blood Culture - Preliminary Blood Culture (Wb) - Right Forearm No growth in 48 hours. 05/11/19 06:45 Blood Culture - Preliminary Blood Culture (Wb) - Anticubital Right No growth in 48 hours. 05/11/19 06:20 Urine Culture - Final Urine, Clean Catch Mixed Gram Positive Organisms 05/11/19 03:59 Ova and Parasites - Final Stool 05/12/19 10:35 Streptococcus pneumoniae Antigen (M - Final Urine, Clean Catch 05/12/19 10:35 Legionella Antigen - Final Urine, Clean Catch 05/11/19 03:57 Stool Lactoferrin - Final Stool 05/11/19 03:57 C. difficile DNA Amplification - Final Stool Laboratory Tests Past 24 Hrs 05/12/19 05/13/19 05/13/19 22:32 05:30 05:30 WBC 5.5 RBC 4.27 L Hgb 12.5 L Hct 37.7 L MCV 88.3 MCH 29.3 MCHC 33.2 RDW 13.4 RDW Differential 42.6 Plt Count 153 MPV 10.3 Immature Gran % (Auto) 0.200 Neut % (Auto) 53.9 Lymph % (Auto) 33.9 [place] % (Auto) 9.2 Eos % (Auto) 2.6 Baso % (Auto) 0.2 Absolute Neuts (auto) 3.0 Absolute Lymphs (auto) 1.85 Total Counted Not Reportable PT INR APTT Sodium 146 H Potassium 4.0 Chloride 116 H Carbon Dioxide 24.0 Anion Gap 6 BUN 7 Creatinine 0.88 Estim Creat Clear Calc 86.59 Est GFR (MDRD) Af Amer 115 Est GFR (MDRD) Non-Af 95 BUN/Creatinine Ratio 8.0 L Glucose 93 Calcium 8.9 Vancomycin Trough 12.1 05/13/19 05:30 WBC RBC Hgb Hct MCV MCH MCHC RDW RDW Differential Plt Count MPV Immature Gran % (Auto) Neut % (Auto) Lymph % (Auto) [place] % (Auto) Eos % (Auto) Baso % (Auto) Absolute Neuts (auto) Absolute Lymphs (auto) Total Counted PT 13.7 INR 1.1 APTT 36.0 Sodium Potassium Chloride Carbon Dioxide Anion Gap BUN Creatinine Estim Creat Clear Calc Est GFR (MDRD) Af Amer Est GFR (MDRD) Non-Af BUN/Creatinine Ratio Glucose Calcium Vancomycin Trough Discharge Diet: Low fat/ Low Cholesterol Discharge Activity: Return to Normal Activity Weight Bearing Status: Weight bearing as tolerated Call your doctor if you observe: Fever of 101 or Higher, Shortness of breath, Chest pain Home Medications: Medications to take at Discharge Atenolol [Tenormin (beta ree)] 100 mg PO DAILY 05/10/19 Colestipol HCl 1 gm PO BID 05/10/19 Lansoprazole 30 mg PO DAILY 05/10/19 [place] Carbonate [[place] Carbonate ER] 900 mg PO QHS 05/10/19 Lorazepam [Ativan] 0.5 mg PO TID 05/10/19 Risperidone 8 mg PO QHS 05/10/19 Levofloxacin 750 mg PO DAILY #3 tab 05/13/19 Following Prescrptions Were Given to Patient: Levofloxacin 750 mg PO DAILY #3 tab Transmission Status: Pending to [facility] [place] - [id number] Primary Care Physician: Manolo Brewer DO [Primary Care Provider] - Please follow up with your Primary Care Physician in: one week Patient Instructions: What Is Angina?, What Is Pneumonia?, Pneumonia Disposition: Home Minutes spent on discharge:: 35 Patient Condition:: Stable Medical Necessity - Tobacco Use Smoking Status: Current every day smoker Tobacco Use: Cigarettes Meaningful Use Info Meaningful Use Diagnoses (Choose all that apply): None applicable Code Visit Inpatient E&M: 88369 Disch Hosp
== END 2019-05-13 15:08 | disposition home or self-care (01) | DRG 720 ==
LOC: ED 17:50 → PCU 18:06
PROVIDERS: Internal Medicine; Admitting Provider Hospitalist; Emergency Provider Emergency Medicine; Family Provider Student in an Organized Health Care Education/Training Program; PCP Student in an Organized Health Care Education/Training Program; Referring Provider Hospitalist; Visit Provider Student in an Organized Health Care Education/Training Program
DX: A41.9 Sepsis, unspecified organism (principal); A04.5 Campylobacter enteritis; J18.9 Pneumonia, unspecified organism; E78.5 Hyperlipidemia, unspecified; I10 Essential (primary) hypertension; F41.9 Anxiety disorder, unspecified; F31.9 Bipolar disorder, unspecified; F17.210 Nicotine dependence, cigarettes, uncomplicated; R07.89 Other chest pain
CPT/HCPCS: 36415; 71046; 78452; 80048; 80061; 80202; 81001; 83605; 83630; 84484; 85025; 85610; 85730; 87040; 87086; 87088; 87177; 87209; 87449; 87493; 87506; 93005; 93017; 93306; 97161; 97166; 99285; 99406; A9500; J7030; J7040; A4216; J2785

== ENCOUNTER 2019-09-23 13:02 | Observation (INO) | payer MEDICAID, SELFPAY ==
[2019-05-10 18:36] VITALS: BMI 33.4
[2019-09-23] VITALS (7 sets, daily range): BP systolic 146–171; BP diastolic 78–110; PULSE 73–88; RESP 17–20; TEMP 36.4–36.9; O2SAT 96–99; BMI 29.7; BMI 29.8; BMI 27.6
--- NOTE | 2019-09-23 13:08 | EKG12_ITS ---
Test Reason : CP Blood Pressure : / mmHG Vent. Rate : 083 BPM Atrial Rate : 083 BPM P-R Int : 138 ms QRS Dur : 088 ms QT Int : 400 ms P-R-T Axes : 066 053 047 degrees QTc Int : 470 ms Normal sinus rhythm Nonspecific ST abnormality Abnormal ECG Confirmed by ZEKE GUDINO, FIDE ([id number]), school photograph editor VERÓNICA DAMIAN ([id number]) on 09/27/2019 9:22:48 AM Referred By: SALOME
--- NOTE | 2019-09-23 13:08 | RAD_ITS ---
STUDY: X-RAY CHEST REASON FOR EXAM: Male, 59 years old. Chest pain and dizziness. TECHNIQUE: Single AP portable view of the chest. COMPARISON: Comparison is made with prior examination dated May 10, 2019. FINDINGS: EKG electrodes are seen. Azygos lobe is seen. This a normal variant. There is no demonstrated pleural abnormality. Normal size heart. Normal mediastinum and michael. Normal visualized pulmonary arteries. Normal visualized aortic arch and descending thoracic aorta. There are mild degenerative changes of the visualized thoracic spine. Normal visualized ribs, clavicles, and shoulders. There is no demonstrated abnormality of the visualized soft tissue structures of the upper abdomen. RAD/Chest 1 View (Portable) IMPRESSION: No acute abnormality is seen. Electronically Signed: Jorge Gore, at 14:00 EST , Service support ,
[2019-09-23 13:22] LABS: Absolute Lymphocyte Count 2.74 X10^3/uL (0.83-4.51); Absolute Neutrophil Count 5.7 X10^3/uL (2.0-7.7); Basophil# 0.01 X10^3/uL; Basophil% 0.1 % (0-1); Eosinophil# 0.02 X10^3/uL; Eosinophils% 0.2 % (0-5); Hematocrit 46.8 % (40-54); Hemoglobin 15.8 g/dL (13.0-16.5); Lymphocyte # 2.74 X10^3/ul (4.0); Mean Corp Hgb Conc 33.8 g/dL (32-36); Mean Corpuscular Hgb 29.7 pg (27.0-32.0); Mean Platelet Vol. 10.4 fl (6.2-12.0); Monocyte# 0.37 X10^3/uL; Monocyte% 4.2 % (0-10); NRBC Flagged by Analyzer 0 % (0-5); Neutrophil # 5.66 X10^3/uL (2.7-7.7); Platelet Count 196 K/mm3 (150-450); RBC Distribution Width CV 12.4 % (11.6-14.6); RBC Distribution Width SD 39.9 fl (35.1-43.9); Red Blood Count 5.32 M/mm3 (4.6-6.2); White Blood Count 8.8 K/mm3 (4.4-11.0)
[2019-09-23 13:32] LABS: Anion Gap 6 (5-15); BUN 12 mg/dL (7-18); BUN/Creat Ratio 12.8 RATIO (10-20); Calcium,Total 9.9 mg/dL (8.5-10.1); Chloride 103 mmol/L (98-107); Creatinine, Serum 0.93 mg/dL (0.70-1.30); EST Glomerular Filtration Rate 88 mL/min (>60); Est Glom Filt Rate - Afr Amer 107 mL/min (>60); Estimated Creatinine Clearance 83.76 ml/min; Glucose 106 mg/dL (74-106); Potassium 3.9 mmol/L (3.5-5.1); Sodium Level 138 mmol/L (136-145)
--- NOTE | 2019-09-23 14:15 | ED.VISSUMM ---
- ER Visit Summary Date of Service: 09/23/19 Chief Complaint: Chest pain History of Present Illness: The patient is a 59 M presenting with chest pain. Patient states he has had midsternal chest pain over the past 3 days which has been intermittent. It is worsened with exertion. It worsened today. He has associated shortness of breath, nausea, diaphoresis. Denies radiation. States pain is currently 4 out of 10. At worst it is 10 out of 10. Denies PE/DVT risk factors. He has a history of hypertension, hypercholesteremia, smoking. Physical Examination: Vitals are stable. Patient is afebrile. Alert no acute distress. HEENT exam is unremarkable. Neck is supple. Lungs are clear and equal bilaterally. Heart is regular rate and rhythm. Abdomen is soft nontender nondistended. Extremities are unremarkable. Skin is warm and dry. No focal neurologic deficit. Remainder of exam is unremarkable. Emergency Department Course and Treatment: Patient was given aspirin, morphine, Zofran. EKG is sinus rhythm rate of 83 with no acute ischemic changes. Chest x-ray shows no acute process. CBC, chemistries unremarkable. Troponin is negative. On reevaluation, patient is chest pain-free. Discussed with the hospitalist for observation. Disposition: Observation Impression: Chest pain This note was generated with [employer] dictation software. It may contain incorrect words, spelling, and punctuation that were not noted in review of the chart prior to signing ED Disposition - Plan for ED Patient: Referrals: Manolo Brewer DO [Primary Care Provider] -
[2019-09-23] MEDS: Aspirin 325 MG Tablet PO (15:17)
--- NOTE | 2019-09-23 19:34 | EKG12_ITS ---
Test Reason : AM EKG Blood Pressure : / mmHG Vent. Rate : 081 BPM Atrial Rate : 081 BPM P-R Int : 146 ms QRS Dur : 090 ms QT Int : 422 ms P-R-T Axes : 064 042 053 degrees QTc Int : 490 ms Normal sinus rhythm Prolonged QT Abnormal ECG Confirmed by JAVIER GUDINO, WILFRED ([id number]), book editor VERÓNICA DAMIAN ([id number]) on 09/27/2019 9:55:18 AM Referred By: PRINCESS Confirmed By:WILFRED HERRERA MD
--- NOTE | 2019-09-23 19:39 | PCM.HP.STD ---
History of Present Illness Date of Admission: 09/23/19 The patient is a 59 year old M who presented to the ED today 2/2 Chest pain. He states that his pain is midsternal and pressure-like with a bit of radiation towards his L axilla. It primarily happens with exertion and is associate with SOB, nausea and diaphoresis. He is currently having no pain. He came in today because his sx worsened. He does have a family h/o cardiac disease but was unsure what happened. He has HTN and HPL and has been a 50 yr smoker of about 1PPD. When asked what would happen if he had to climb a flight of stairs he states that he would . Past Medical History Past Medical History (Chronic Problems): Chronic Problems Bipolar disorder (Chronic) Hyperlipidemia (Chronic) Hypertension (Chronic) Allergies No Known Allergies Allergy (Verified 09/23/19 13:03) Home Medications: Ambulatory Orders Medication Instructions Recorded Atenolol [Tenormin (beta ree)] 100 mg PO DAILY 05/10/19 Colestipol HCl 1 gm PO BID 05/10/19 Lansoprazole 30 mg PO DAILY 05/10/19 Cadillac Carbonate [Cadillac 900 mg PO QHS 05/10/19 Carbonate ER] Risperidone 8 mg PO QHS 05/10/19 Montelukast [Singulair] 10 mg PO QHS 09/23/19 Surgical History: appendectomy Psychiatric History: Anxiety, Bipolar Lives: Alone Smoking Status: Current every day smoker Tobacco Use: Cigarettes Alcohol: None Drugs: None - *Family History Maternal History Items: Heart Disease, Hypertension, - - No family history of CAD, hypertension or diabetes. Paternal History Items: - - No family history of CAD, hypertension or diabetes. Review of Systems Constitutional: Denies: Anorexia, Chills, Fever, Night Sweats, Malaise, Weakness, Weight Change, Fatigue Eyes: Denies: Blurred vision, Cataracts, Conjunctivae Inflammation, Double vision, Drainage, Eyelid Inflammation, Pain, Redness, Vision Change HEENT: Reports: Difficulty Hearing, Hard of Hearing. Denies: Difficulty Swallowing, Dysphasia, Ear Pain, Eye Pain, Head Aches, Hearing Changes, Nasal bleeding, Nasal Congestion, Post Nasal Drip, Sinus Congestion, Sinus Drainage, Sore Throat, Visual Changes Cardiovascular: Reports: Chest Pain, Chest Pressure. Denies: Claudication, Chest Tightness, Edema, Heaviness, Light Headedness, Orthopnea, Palpitations, Paroxysmal Noc. Dyspnea, Syncope Respiratory: Reports: Shortness of Breath, Shortness of breath upon exertion. Denies: Cough, Hemoptysis, Pleuritic Pain, Shortness of breath at rest, Sputum production, Wheezing Gastrointestinal: Reports: Nausea - with CP. Denies: Abdominal Pain, Constipation, Diarrhea, Dyspepsia, Hematemesis, Hematochezia, Melena, Vomiting Genitourinary: Denies: Dysuria, Frequency, Hematuria, Hesitancy, Incontinence, Nocturia, Retention, Urgency Musculoskeletal: Denies: Arm Pain, Back Pain, Foot Pain, Hand Pain, Joint Pain, Joint stiffness, Joint swelling, Joint Tenderness, Leg Pain, Muscle pain, Neck Pain, Shoulder Pain Skin: Denies: Dryness, Jaundice, Lesions, Pruritis, Rash, Skin Changes, Wounds Neurological: Denies: Balance problems, Blurred vision, Double vision, Change in Speech, Slurred speech, Confusion, Difficulty swallowing, Focal weakness, Headaches, Incoordination, Numbness, Tingling, Tremor, Seizures Psychiatric: Reports: - - bipolar. Denies: Anxiety, Depression Endocrine: Denies: Change in Body Habitus, Heat/ Cold Intolerance, Polydipsia, Polyuria, Hx of Irradiation, Hx of Thyroiditis Hematologic/ Lymphatic: Denies: Adenopathy, Anemia, Easy Bruising, Easy Bleeding, Petechiae, Purpura, Hx of blood clot, Hx of blood transfusion VTE Information - Inpt Only VTE Present on Admission: No VTE Mechan Device Prophylaxis: None VTE Pharm Prophylaxis ordered?: No - Physical Exam Vitals/I&O's: Vital Signs Temp Pulse Resp BP Pulse Ox 98.5 F 73 19 H 169/110 H 98 09/23/19 17:22 09/23/19 17:39 09/23/19 17:22 09/23/19 17:22 09/23/19 17:22 Oxygen Flow Rate (L/min) 2 Oxygen Delivery Method Nasal Cannula Weight: 82.5 kg Body Mass Index (BMI) 27.6 General: Alert, Oriented x3, Cooperative, No apparent distress, Well developed, Well nourished, - - non-toxic and appears comfortable, discheveled appearance HEENT: Atraumatic, PERRLA, EOMI, Normocephalic, EAC Clear Oral: Moist Mucosa, No Gingival or Mucosal Lesions/ Ulcerations, - - edentulous Neck: Supple, No JVD, Negative Carotid Bruits, Negative Hepatojugular Reflux, No Nodes, No Nuchal Rigidity, Trachea Midline, Thyroid Normal Size and Texture Lungs: No rhonchi, No rales, Diminished, Wheezes - few scattered Cardiovascular: Regular rate, Regular Rhythm, Normal S1, Normal S2, No murmurs, No Ectopic Activity, No rub noted, No Gallop Abdomen: Bowel Sounds Present, Soft, Non Tender, Non-Distended, No Hepato-splenomegaly, No hernias noted Extremities: No clubbing, No cyanosis, No edema, Capillary Refill Less than 3 Seconds, Peripheral Pulses Normal Skin: No breakdown, Rash Present - seborrhea on face Musculoskeletal: No Tenderness to Palpation of Joints or Extremities, No Muscle Wasting, Arthritic Changes Lymphatic: No Cervical, Supraclavicular, or Inguinal Adenopathy Neurological: Cranial nerves II-XII grossly intact, Deep Tendon Reflexes 2+/4 and Symmetrical, Neuro grossly intact, Motor Exam 5/5 strength throughout Psych/Mental Status: Appropriate, Flat Affect, - - A&O x 3 Laboratory Results 09/23/19 13:06: WBC 8.8, RBC 5.32, Hgb 15.8, Hct 46.8, MCV 88.0, MCH 29.7, MCHC 33.8, RDW Std Deviation 39.9, RDW Coeff of Fernando 12.4, Plt Count 196, MPV 10.4, Immature Gran % (Auto) 0.500, Neut % (Auto) 64.0, Lymph % (Auto) 31.0, [place] % (Auto) 4.2, Eos % (Auto) 0.2, Baso % (Auto) 0.1, Absolute Neuts (auto) 5.7, Absolute Lymphs (auto) 2.74, Nucleated RBC % 0 09/23/19 13:06: Sodium 138, Potassium 3.9, Chloride 103, Carbon Dioxide 29.0, Anion Gap 6, BUN 12, Creatinine 0.93, Estim Creat Clear Calc 83.76, Est GFR (MDRD) Af Amer 107, Est GFR (MDRD) Non-Af 88, BUN/Creatinine Ratio 12.8, Glucose 106, Calcium 9.9, Troponin I < 0.015 Current Medications Sodium Chloride () 10 - 40 ml IV UD PRN PRN Reason: SALINE FLUSH Assessment/Plan All Active Problems Chest pain (Acute) Chest Pain -ekg shows no s/o ischemia at this time -troponin is neg -his story is pretty convincing and he has significant risk factors and a fairly low health literacy is poor -will consult cards to determine if they would like a stress test vs Cath to risk stratify him -cycle troponins -d/c home atenolol and start coreg 6.125 -BP elevated in ED and pt would benefit from better BP control -check lipids and LFT in am -81 mg asa SOB -suspect pt has component of COPD as well with h/o tobacco stas -sats stable -CXR is unremarkable HTN/HPL -d/c atenolol and start coreg for better BP control -meds may need added -check statins GERD continue PPI Bipolar -continue Cadillac and Risperidone Code Visit Inpatient E&M: 46715 Init Hosp L3
[2019-09-23] MEDS: Carvedilol 6.25 MG Tablet PO (21:24)
[2019-09-23] MEDS: Montelukast 10 MG Tablet PO (21:24)
[2019-09-23] MEDS: RisperiDONE 2 MG Tablet 8 MG PO (21:24)
[2019-09-24] VITALS (13 sets, daily range): BP systolic 98–168; BP diastolic 63–92; PULSE 57–91; RESP 15–17; TEMP 36.3–36.7; O2SAT 94–100
--- NOTE | 2019-09-24 04:58 | EKG12_ITS ---
Test Reason : CP ADMIT Blood Pressure : / mmHG Vent. Rate : 084 BPM Atrial Rate : 084 BPM P-R Int : 110 ms QRS Dur : 092 ms QT Int : 420 ms P-R-T Axes : 063 059 064 degrees QTc Int : 496 ms Sinus rhythm with short WI Prolonged QT Abnormal ECG When compared with ECG of 23-SEP-2019 13:01, MANUAL COMPARISON REQUIRED, DATA IS UNCONFIRMED Confirmed by JAVIER GUDINO, WILFRED ([id number]), digital editor VERÓNICA DAMIAN ([id number]) on 09/27/2019 9:56:20 AM Referred By: DR SÁNCHEZ Confirmed By:WILFRED HERRERA MD
[2019-09-24 05:33] LABS: Hematocrit 43.4 % (40-54); Hemoglobin 14.4 g/dL (13.0-16.5); Mean Corp Hgb Conc 33.2 g/dL (32-36); Mean Corpuscular Volume 87.3 fL (80-94); Mean Platelet Vol. 10.5 fl (6.2-12.0); Platelet Count 170 K/mm3 (150-450); RBC Distribution Width CV 12.9 % (11.6-14.6); RBC Distribution Width SD 41.1 fl (35.1-43.9); Red Blood Count 4.97 M/mm3 (4.6-6.2); White Blood Count 7.5 K/mm3 (4.4-11.0)
[2019-09-24 06:13] LABS: ALB/GLOB Ratio 1.2 RATIO (0.9-2.4); AST(SGOT) 11 U/L (15-37); Alanine Aminotransfer ALT/SGPT 20 U/L (16-61); Albumin, Serum 3.9 g/dL (3.2-5.0); Alkaline Phosphatase 79 U/L (45-117); Anion Gap 6 (5-15); BUN 12 mg/dL (7-18); BUN/Creat Ratio 10.8 RATIO (10-20); Calcium,Total 9.4 mg/dL (8.5-10.1); Chloride 103 mmol/L (98-107); Cholesterol 182 mg/dL (200); Creatinine, Serum 1.11 mg/dL (0.70-1.30); EST Glomerular Filtration Rate 72 mL/min (>60); Est Glom Filt Rate - Afr Amer 87 mL/min (>60); Estimated Creatinine Clearance 70.18 ml/min; Globulin 3.2 g/dL (2.2-4.2); Glucose 85 mg/dL (74-106); High Density Lipoprotein 32 mg/dL; Protein, Total 7.1 g/dL (6.4-8.2); Sodium Level 137 mmol/L (136-145); Thyroid Stim Hormone (TSH) 1.48 uIU/mL (0.358-3.74); Triglycerides 113 mg/dL; Very Low Density Lipoprotein 23 mg/dL (5-40)
--- NOTE | 2019-09-24 07:15 | CON.PCM_ITS ---
Reason for Consult Date of Consultation: 09/24/19 Reason for Consultation: Chest pain History of Present Illness: The patient is a 59 year old M with a past medical history significant for hypertension, hyperlipidemia, tobacco abuse who presented to the emergency room with recent onset chest discomfort. He described this as a pressure-like sensation in the middle of his chest radiating towards his left axilla. There was mild diaphoresis but no nausea no vomiting no dizziness no near syncope. He says that it usually occurs when he exerts himself and then dissipates when he rests. He has not had any previous cardiac work-up. He has been somewhat compliant with his medications. He presented to the emergency room was evaluated his cardiac enzymes were normal and troponin was normal. Cardiology was consulted for further evaluation due to the atypical nature of the discom fort. [] Past Medical History Allergies/Adverse Reactions: Allergies No Known Allergies Allergy (Verified 09/23/19 13:03) Home Medications: Ambulatory Orders Medication Instructions Recorded Atenolol [Tenormin (beta ree)] 100 mg PO DAILY 05/10/19 Colestipol HCl 1 gm PO BID 05/10/19 Lansoprazole 30 mg PO DAILY 05/10/19 [place] Carbonate [[place] 900 mg PO QHS 05/10/19 Carbonate ER] Risperidone 8 mg PO QHS 05/10/19 Montelukast [Singulair] 10 mg PO QHS 09/23/19 Past Medical History (Chronic Problems): Chronic Problems Bipolar disorder (Chronic) Hyperlipidemia (Chronic) Hypertension (Chronic) Surgical History: appendectomy Psychiatric History: Anxiety, Bipolar - *Family History Maternal History Items: Heart Disease, Hypertension, - - No family history of CAD, hypertension or diabetes. Paternal History Items: - - No family history of CAD, hypertension or diabetes. Lives: Alone Smoking Status: Current every day smoker Tobacco Use: Cigarettes Alcohol: None Drugs: None Review of Systems - Review of Systems General: Denies: Fever, Night Sweats, Fatigue HEENT: Denies: Vision Change Cardiovascular: Reports: Chest Discomfort, Chest Discomfort with Exertion. Denies: Shortness of Breath, Orthopnea, PND, Peripheral Edema, Palpitations, Lightheadedness, Dizziness, Near Syncope, Syncope Respiratory: Denies: Cough, Sputum Production, Hemoptysis Gastrointestinal: Denies: Hematemesis, Hematochezia, Melena Genitourinary: Denies: Dysuria, Hematuria Muscoloskeletal: Denies: Myalgias Skin: Denies: Rash Neurological: Denies: Dizziness Psychiatric: Denies: Anxiety Endocrine: Denies: Heat Intolerance Subjectve: Gentleman in no distress Objective: Vital Signs Temp Pulse Resp BP Pulse Ox 97.6 F L 59 L 17 168/88 H 95 09/24/19 02:43 09/24/19 03:11 09/24/19 02:43 09/24/19 02:43 09/24/19 02:43 Oxygen Flow Rate (L/min) 2 Oxygen Delivery Method Room Air Weight: 181 lb 14.102 oz Body Mass Index (BMI) 27.6 Intake and Output for Last 24 Hours 09/22/19 09/23/19 09/24/19 23:59 23:59 23:59 Intake Total 440 / 440 Balance 440 / 440 General: Awake, Alert, Oriented x 3 HEENT: PERRL, EOMI, Sclera Non Icteric Neck: Supple, Good ROM, No Lymph Node Enlargement Lungs: Clear to auscultation Cardiovascular: Regular Rhythm, Normal S1, Normal S2, No Murmurs, No Rubs, No Gallops Vascular: No Carotid Bruits, Normal Femoral Pulses, Normal Radial Pulses, Normal Dorsalis Pedal Pulse, Normal Posterior Tibial Pulses Abdomen: Bowel Sounds Present, Soft, Non Tender, No HSM, No Organomegaly Extremities: No Cyanosis, No Clubbing, No edema Musculoskeletal: No Erythema Skin: No Rashes Lymphatic: No Lymph Node Enlargement Neurological: No Focal Motor or Sensory Deficit Psych/Mental Status: Appropriate 09/23/19 13:06: WBC 8.8, RBC 5.32, Hgb 15.8, Hct 46.8, MCV 88.0, MCH 29.7, MCHC 33.8, Plt Count 196, MPV 10.4, Immature Gran % (Auto) 0.500, Neut % (Auto) 64.0, Lymph % (Auto) 31.0, [place] % (Auto) 4.2, Eos % (Auto) 0.2, Baso % (Auto) 0.1, Absolute Neuts (auto) 5.7, Nucleated RBC % 0 09/23/19 13:06: Sodium 138, Potassium 3.9, Chloride 103, Carbon Dioxide 29.0, Anion Gap 6, BUN 12, Creatinine 0.93, Est GFR (MDRD) Af Amer 107, Est GFR (MDRD) Non-Af 88, BUN/Creatinine Ratio 12.8, Glucose 106, Calcium 9.9, Troponin I < 0.015 09/23/19 19:28: Troponin I < 0.015 09/23/19 22:15: Troponin I < 0.015 09/24/19 04:57: WBC 7.5, RBC 4.97, Hgb 14.4, Hct 43.4, MCV 87.3, MCH 29.0, MCHC 33.2, Plt Count 170, MPV 10.5 09/24/19 04:57: Sodium 137, Potassium 4.0, Chloride 103, Carbon Dioxide 28.0, Anion Gap 6, BUN 12, Creatinine 1.11, Est GFR (MDRD) Af Amer 87, Est GFR (MDRD) Non-Af 72, BUN/Creatinine Ratio 10.8, Glucose 85, Calcium 9.4, Total Bilirubin 0.90, Direct Bilirubin 0.20, Triglycerides 113, Cholesterol 182, LDL Cholesterol 127, VLDL Cholesterol 23, HDL Cholesterol 32 L Rhythm: EKG: Normal sinus rhythm with no acute changes ECHO: Stress Test: Cardiac Cath: PCI: CT Surgery: Holter monitor: EPS: PPM: CXR: Chest CT Scan: Assessment/Plan 1. Chest pain-new onset * Patient presents with new onset chest discomfort with exertion. He does have some typical features. He at the moment does not have any EKG or troponin changes however it is felt that with the typical nature of the chest discomfort we should proceed directly with a cardiac catheterization rather than stress testing. The risk benefits alternatives have been explained to him and his niece and they understand and agreed to proceed. * 2. Hypertension * Uncontrolled and may be responsible for some of his chest discomfort. The plan would be to continue current medical therapy with the addition of an RYAN inhibitor. If he does have coronary disease then a beta-ree would be added * 3. Hyperlipidemia * Continue aggressive risk factor modification * Smoking cessation has been emphasized * * Thank you for allowing me to participate in the care of your patient. Please don't hesitate to call if any issues arise * addendum; Pt underwent cardiac cath which demonstrated no significant coronary obstruction. Will seek non cardiac causes.
[2019-09-24] MEDS: Lisinopril 10 MG Tablet PO (08:09)
[2019-09-24] MEDS: Carvedilol 6.25 MG Tablet PO (08:09)
[2019-09-24] MEDS: Pantoprazole Sodium 40 MG Tablet PO (08:09)
[2019-09-24] MEDS: 0.9% Saline Lock 10 ML Syringe IV (08:09)
[2019-09-24] MEDS: Aspirin 81 MG TAB.CHEW PO (08:09)
[2019-09-24] MEDS: 0.9% Normal Saline 1,000 ML 15 ML IV (08:09)
--- NOTE | 2019-09-24 10:43 | CASEMGMT ---
According to the [facility] website, the following are in-network tertiary facilities: [facility], [place], [facility], [place], [facility], [facility], [place], [facility], and . Dragan FREITAS CM
--- NOTE | 2019-09-24 13:20 | DCINST_ITS ---
You will use the following diet at home:: Cardiac Your food should be the consistency of: Regular Your liquids should be the consistency of: Regular/Thin Discharge Activity: Return to Normal Activity Weight Bearing Status: Weight bearing as tolerated Call your doctor if you observe: Shortness of breath, Dizziness, Fainting spells, Chest pain Instructions: What Is Angina?, Your Heart is at Risk, Warning Signs of a Heart Attack Allergies/Adverse Reactions: Allergies No Known Allergies Allergy (Verified 09/23/19 13:03) Medications to take at Discharge Atenolol [Tenormin (beta ree)] 100 mg PO DAILY 05/10/19 Colestipol HCl 1 gm PO BID 05/10/19 Lansoprazole 30 mg PO DAILY 05/10/19 [place] Carbonate [[place] Carbonate ER] 900 mg PO QHS 05/10/19 Risperidone 8 mg PO QHS 05/10/19 Montelukast [Singulair] 10 mg PO QHS 09/23/19 Aspirin [Aspirin, Baby] 81 mg PO DAILY@0800 #30 tab.chew 09/24/19 Atorvastatin Calcium [Lipitor] 40 mg PO QHS #30 tab 09/24/19 Lisinopril [Zestril] 10 mg PO DAILY #30 tab 09/24/19 The following prescriptions were given: Aspirin [Aspirin, Baby] 81 mg PO DAILY@0800 #30 tab.chew Transmission Status: Pending to [place] [id number] Atorvastatin Calcium [Lipitor] 40 mg PO QHS #30 tab Transmission Status: Pending to [place] [id number] Lisinopril [Zestril] 10 mg PO DAILY #30 tab Transmission Status: Pending to [facility] [address] Primary Care Physician: Manolo Brewer DO [Primary Care Provider] - Please follow up with your Primary Care Physician in: one week Test Results: Test results from this visit will be discussed in further detail at your follow-up appointment, if applicable. Please Follow Up With: Emigdio Meyers MD When: 1-2 weeks Proposed Discharge Date: 09/24/19
--- NOTE | 2019-09-24 13:22 | DS.PCM_ITS ---
Discharge Date and Diagnosis Date of Admission: 09/23/19 Date of Discharge: 09/24/19 - Primary Discharge Diagnosis chest pain - Secondary Discharge Diagnosis Chronic Problems Bipolar disorder (Chronic) Hyperlipidemia (Chronic) Hypertension (Chronic) Hospital Course and Treatment Imaging Results: Diagnostic Data Chest X-Ray 09/23/19 13:08 IMPRESSION: No acute abnormality is seen. Electronically Signed: Jorge Gore, at 14:00 EST , Service support , cardiology- Dr Meyers Operations: None Procedures: Cardiac catheterization Summary of Care Provided: The patient is a 59 year old M with a past medical history as listed which includes hyperlipidemia, hypertension and bipolar disorder. He was admitted through the ED on 09/23/2019 with a complaint of chest pain which was retrosternal and pressure-like and radiated to was his left axilla. He said [employer] with exertion and was associated with shortness of breath, diaphoresis and nausea. Was relieved by rest. Symptoms worsen on the day of admission so he came in. Showed troponin was negative and EKG showed no acute ST changes. Based on his risk factors of hypertension, hyperlipidemia and extensive smoking history, cardiology was consulted. Patient had a cath on 09/25/2019 which was negative for any blockage. He remained stable. Blood pressure had been elevated on admission. He was started on lisinopril and his atenolol was stopped and he was started on carvedilol. He remained stable and was discharged home on 09/24/2019 after he had a cardiac cath. 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 He was also started on p.o. aspirin 81 mg daily and atorvastatin 40 mg daily. Patient seen and examined prior to discharge. He was well and had no complaints. His niece was by the bedside. Review of systems otherwise negative purulent fluid over reviewed. Home medications reviewed and reconciled. o/e: Vital Signs Height 5 ft 8 in Weight: 181 lb 14.102 oz Weight in Pounds 181.9 lbs Pulse Ox 96 Temperature 97.6 F Pulse Rate 91 Respiratory Rate 17 Blood Pressure [BP] 164/78 Blood Pressure 98/71 Blood Pressure Position [BP] Semi-Fowlers Blood Pressure Position Semi-Fowlers [] - Physical Exam Vitals/I&O's: Vital Signs Temp Pulse Resp BP Pulse Ox 97.6 F L 91 17 98/71 96 09/24/19 13:15 09/24/19 13:15 09/24/19 13:15 09/24/19 13:15 09/24/19 13:15 Oxygen Flow Rate (L/min) 2 Oxygen Delivery Method Room Air Weight: 181 lb 14.102 oz Body Mass Index (BMI) 27.6 Intake and Output for Last 24 Hours 09/22/19 09/23/19 09/24/19 23:59 23:59 23:59 Intake Total 1165 / 1165 Output Total 1000 / 1000 Balance 165 / 165 General: Alert, Oriented x3, Cooperative, No apparent distress HEENT: Atraumatic, PERRLA, EOMI, Normocephalic Oral: Moist Mucosa Neck: Supple, No JVD, Negative Carotid Bruits Lungs: Clear to auscultation, Normal air movement, No rhonchi, No wheeze, No rales Cardiovascular: Regular rate, Regular Rhythm, Normal S1, Normal S2, No murmurs Abdomen: Bowel Sounds Present, Soft, Non Tender Extremities: No clubbing, No cyanosis, No edema, Capillary Refill Less than 3 Seconds Skin: No rashes, No breakdown Musculoskeletal: No Tenderness to Palpation of Joints or Extremities Lymphatic: No Cervical, Supraclavicular, or Inguinal Adenopathy Neurological: Cranial nerves II-XII grossly intact, Neuro grossly intact, Motor Exam 5/5 strength throughout Psych/Mental Status: Normal Affect, Appropriate, Alert and oriented to time, place, person, mood and affect Laboratory Results 09/23/19 13:06: WBC 8.8, RBC 5.32, Hgb 15.8, Hct 46.8, MCV 88.0, MCH 29.7, MCHC 33.8, RDW Std Deviation 39.9, RDW Coeff of Fernando 12.4, Plt Count 196, MPV 10.4, Immature Gran % (Auto) 0.500, Neut % (Auto) 64.0, Lymph % (Auto) 31.0, [place] % (Auto) 4.2, Eos % (Auto) 0.2, Baso % (Auto) 0.1, Absolute Neuts (auto) 5.7, Absolute Lymphs (auto) 2.74, Nucleated RBC % 0 09/23/19 13:06: Sodium 138, Potassium 3.9, Chloride 103, Carbon Dioxide 29.0, Anion Gap 6, BUN 12, Creatinine 0.93, Estim Creat Clear Calc 83.76, Est GFR (MDRD) Af Amer 107, Est GFR (MDRD) Non-Af 88, BUN/Creatinine Ratio 12.8, Glucose 106, Calcium 9.9, Troponin I < 0.015 09/23/19 19:28: Troponin I < 0.015 09/23/19 22:15: Troponin I < 0.015 09/24/19 04:57: WBC 7.5, RBC 4.97, Hgb 14.4, Hct 43.4, MCV 87.3, MCH 29.0, MCHC 33.2, RDW Std Deviation 41.1, RDW Coeff of Fernando 12.9, Plt Count 170, MPV 10.5 09/24/19 04:57: Sodium 137, Potassium 4.0, Chloride 103, Carbon Dioxide 28.0, Anion Gap 6, BUN 12, Creatinine 1.11, Estim Creat Clear Calc 70.18, Est GFR (MDRD) Af Amer 87, Est GFR (MDRD) Non-Af 72, BUN/Creatinine Ratio 10.8, Glucose 85, Calcium 9.4, Total Bilirubin 0.90, Direct Bilirubin 0.20, AST 11 L, ALT 20, Alkaline Phosphatase 79, Total Protein 7.1, Albumin 3.9, Globulin 3.2, Albumin/Globulin Ratio 1.2, Triglycerides 113, Cholesterol 182, LDL Cholesterol 127, VLDL Cholesterol 23, HDL Cholesterol 32 L, TSH 1.48 Diagnostic Data Chest X-Ray 09/23/19 13:08 IMPRESSION: No acute abnormality is seen. Electronically Signed: Jorge Gore, at 14:00 EST , Service support , Current Medications Aspirin (Aspirin, Baby) 81 mg PO DAILY@0800 [facility] Last Admin: 09/24/19 08:09 Dose: 81 mg Documented by: Carvedilol (Coreg) 6.25 mg PO BID [facility] Last Admin: 09/24/19 08:09 Dose: 6.25 mg Documented by: Colestipol HCl (Colestid Tablet) 1 gm PO BID [facility] Last Admin: 09/24/19 10:24 Dose: 1 gm Documented by: Heparin Sodium (Beef Lung) (Heparin 500 Unit/5 Ml (100/Ml)) 500 unit IV UD PRN PRN Reason: HEPARIN FLUSH Sodium Chloride () 1,000 mls @ 15 mls/hr IV .Q48H [facility] Last Admin: 09/24/19 08:09 Dose: 15 mls/hr Documented by: Labetalol HCl (Trandate) 5 mg IV X1 PRN PRN Reason: SBP > 160 prior to sheath pull Stop: 09/26/19 11:57 Lisinopril (Zestril) 10 mg PO DAILY [facility] Last Admin: 09/24/19 08:09 Dose: 10 mg Documented by: [place] Carbonate (Eskalith Cr) 900 mg PO QHS [facility] Last Admin: 09/23/19 22:06 Dose: 900 mg Documented by: Montelukast Sodium (Singulair) 10 mg PO QHS [facility] Last Admin: 09/23/19 21:24 Dose: 10 mg Documented by: Nicotine (Nicoderm Cq (Pbkc)) 14 mg TRANSDERM. DAILY [facility] Last Admin: 09/24/19 10:24 Dose: 14 mg Documented by: Nitroglycerin (Nitrostat) 0.4 mg SUBLINGUAL Q5M PRN PRN Reason: CHEST PAIN Pantoprazole Sodium (Protonix) 40 mg PO DAILY [facility] Last Admin: 09/24/19 08:09 Dose: 40 mg Documented by: Risperidone (Risperdal) 8 mg PO QHS [facility] Last Admin: 09/23/19 21:24 Dose: 8 mg Documented by: Sodium Chloride () 10 - 40 ml IV UD PRN PRN Reason: SALINE FLUSH Last Admin: 09/24/19 08:09 Dose: 10 ml Documented by: Discharge Diet: Low fat/ Low Cholesterol Discharge Activity: Return to Normal Activity Weight Bearing Status: Weight bearing as tolerated Call your doctor if you observe: Shortness of breath, Dizziness, Fainting spell s, Chest pain Home Medications: Medications to take at Discharge Colestipol HCl 1 gm PO BID 05/10/19 Lansoprazole 30 mg PO DAILY 05/10/19 [place] Carbonate [[place] Carbonate ER] 900 mg PO QHS 05/10/19 Risperidone 8 mg PO QHS 05/10/19 Montelukast [Singulair] 10 mg PO QHS 09/23/19 Aspirin [Aspirin, Baby] 81 mg PO DAILY@0800 #30 tab.chew 09/24/19 Atorvastatin Calcium [Lipitor] 40 mg PO QHS #30 tab 09/24/19 Carvedilol [Coreg (Beta Sanjuana)] 6.25 mg PO BID #60 tab 09/24/19 Lisinopril [Zestril] 10 mg PO DAILY #30 tab 09/24/19 Following Prescrptions Were Given to Patient: Aspirin [Aspirin, Baby] 81 mg PO DAILY@0800 #30 tab.chew Transmission Status: Received by [place] [address] Carvedilol [Coreg (Beta Sanjuana)] 6.25 mg PO BID #60 tab Transmission Status: Received by [place] [address] Atorvastatin Calcium [Lipitor] 40 mg PO QHS #30 tab Transmission Status: Received by [place] [address] Lisinopril [Zestril] 10 mg PO DAILY #30 tab Transmission Status: Received by [place] [address] Primary Care Physician: Manolo Brewer DO [Primary Care Provider] - Please follow up with your Primary Care Physician in: one week Please Follow Up With: Emigdio Meyers MD When: 1-2 weeks Patient Instructions: What Is Angina?, Your Heart is at Risk, Warning Signs of a Heart Attack Disposition: Home Minutes spent on discharge:: 35 Patient Condition:: Stable Medical Necessity - Tobacco Use Smoking Status: Current every day smoker Tobacco Use: Cigarettes Meaningful Use Info Meaningful Use Diagnoses (Choose all that apply): None applicable Code Visit OBSV E&M: 48954 Observation care discharge
--- NOTE | 2019-09-29 09:33 | CL.D_ITS ---
Patient Name: CLOVIS PAUL Study Date: 09/24/2019 Performing: Emigdio Meyers MD Ht: 68 inches 173 cm : 1960 Wt: 183.2 lbs 83 kg Age: 59 Gender: male BSA: 1.97 PROCEDURE(S) PERFORMED [id number]/LV CLINICAL PROFILE AND INDICATIONS Indications: Suspected CAD Heart Failure: None Stress/Imaging Stress/Image Study Performed: No CAD Presentations: Stable angina. CONCLUSIONS Normal coronary arteries Normal LV size, wall motion,and systolic function RECOMMENDATIONS Medical therapy DESCRIPTION OF PROCEDURE The patient arrived to the procedure lab. The risks and benefits of the procedure as well as a full d escription of our services here and current unavailability of surgical backup were fully explained to the patient and/or their significant other prior to the catheterization. The Timeout was completed, verifying the correct patient and procedure. The patient's procedural site was prepped and draped in the usual fashion. Local anesthetic was given subcutaneously to right groin region with Lidocaine 2%. Using a modified Seldinger technique, arterial access was obtained via the right femoral artery, a 5 Fr sheath was inserted. Left Coronary Artery selective angiography was performed in multiple views u sing a 5 Fr. JL4 catheter. Right Coronary Artery selective angiography was then performed in multiple views using a 5 Fr. 3DRC (Theron) catheter. Left Ventriculography was performed in LUCIA projection using a 5 Fr. Pigtail catheter. LV to AO pullback pressures were then recorded.Contrast was injected through the sheath and the Right Iliac and Femoral artery were assessed for possible neto sure device.The arterial sheath was pulled and a Mynx closure device was deployed for hemostasis CORONARY ANGIOGRAPHY DOMINANCE: Right Dominant LEFT HEART ASSESSMENT Left Ventricular Ejection Fraction: by LV Gram 60 % Normal LV wall motion Normal Left Ventricular systolic function Normal Left Ventricular systolic function LEFT MAIN: Angiographically normal LEFT ANTERIOR DESCENDING ARTERY: Angiographically normal CIRCUMFLEX ARTERY: Angiographically normal RIGHT CORONARY ARTERY: Angiographically normal COMPLICATIONS No Complications PROCEDURE MEDICATIONS Versed 1 mg IV Oxygen: 2 L/min via nasal cannula Baby Aspirin (81mg) 1 Tabs PO 09/24/2019 08:43:06 Brilinta 180 mg PO @ 09/24/2019 08:43:18 SUMMARY OF HEMODYNAMIC DATA Time AIR REST ECG 08:41:15 AO 106/68 (85) SA 08:54:53 LV 107/-2, 0 09:00:56 LV 109/-1, 1 09:01:00 LV 106/-3, 0 09:01:06 LV 105/1, 4 09:01:33 LVp 100/-4, 2 09:01:40 AO 108/62 (82) 09:01:46 Signed By Emigdio Meyers MD On 09/29/2019 9:32:27 AM Emigdio Meyers MD
== END 2019-09-24 11:57 | disposition home or self-care (01) ==
LOC: ED 14:06 → PCU 23:01
PROVIDERS: Admitting Provider Internal Medicine; Emergency Provider Emergency Medicine; Family Provider Student in an Organized Health Care Education/Training Program; PCP Student in an Organized Health Care Education/Training Program; Visit Provider Student in an Organized Health Care Education/Training Program
DX: R07.89 Other chest pain (principal); I10 Essential (primary) hypertension; R06.02 Shortness of breath; E78.5 Hyperlipidemia, unspecified; F31.9 Bipolar disorder, unspecified; F41.9 Anxiety disorder, unspecified; F17.210 Nicotine dependence, cigarettes, uncomplicated; Z79.899 Other long term (current) drug therapy; K21.9 Gastro-esophageal reflux disease without esophagitis
CPT/HCPCS: 36415; 71045; 80048; 80053; 80061; 82248; 84443; 84484; 85025; 85027; 93005; 93458; 99152; 99218; 99285; 99406; C1760; J7030; Q9967; A4216; C1769; G0378

== ENCOUNTER 2019-12-31 14:07 | Emergency (ER) | payer MEDICAID, SELFPAY ==
[2019-09-23 17:33] VITALS: BMI 27.6
[2019-12-31 14:08] VITALS: BP 158/81; PULSE 96; RESP 19; TEMP 36.6; O2SAT 99; BMI 33.1
--- NOTE | 2019-12-31 14:21 | ED.DCSUM_ITS ---
History of Present Illness Chief Complaint: Shortness of Breath Informant: Patient Onset: Days - 2 days Context: Gradual Onset Current Severity: Mild Maximum Severity: Mild Narrative: Patient presents with a 2-day history of shortness of breath and cough. He states he feels like he just cannot get a deep enough breath in. He is a long- term smoker. He states he was diagnosed with asthma as a child but really has not had any problems as an adult. Patient does report nonproductive cough but does feel that there is phlegm caught in his chest. He has not had fever or chills. He denies chest pain. - Past Medical History (1) GERD (gastroesophageal reflux disease) Status: Chronic (2) Bipolar disorder Status: Chronic (3) Essential (primary) hypertension Status: Chronic (4) Hyperlipidemia Status: Chronic Past Medical History - Allergies and Home Meds Allergies/Adverse Reactions: Allergies No Known Allergies Allergy (Verified 12/31/19 14:10) Primary Care Physician: Manolo Brewer DO [Primary Care Provider] - Prior records reviewed: Yes Surgical History: appendectomy Smoking Status: Current every day smoker - Family History Maternal Family History: Reports: Heart Disease, Hypertension, - - No family history of CAD, hypertension or diabetes. Paternal Family History: Reports: - - No family history of CAD, hypertension or diabetes. Review of Systems General: Denies: Chills, Fever Eyes: Denies: Visual changes - bilaterally ENT: Denies: Bilateral ear pain Cardiovascular: Denies: Chest pain Respiratory: Reports: Dyspnea, Cough. Denies: Sputum Gastrointestinal: Denies: Abdominal pain, Nausea, Vomiting, Diarrhea Musculoskeletal: Denies: Neck pain, Back pain, Extremity Pain Skin: Denies: Rash Neurological: Denies: Headache Allergy: Denies: Uticaria Physical Exam Vital Signs/Narrative: Vital Signs Temp Pulse Resp BP Pulse Ox 12/31/19 14:08 97.8 F 96 19 H 158/81 H 99 Inital Vital Signs reviewed: Yes General: Well nourished, Well developed Head: Normocephalic ENT: Moist mucous membranes Neck: Supple Cardiovascular: Regular rate, Regular rhythm Respiratory: No distress, CTA bilaterally, - - Slightly diminished in the lung bases. Abdomen: Soft, Nontender Skin: Normal color Neurological: Alert, Oriented x3 Psychological: Normal affect Diagnostic/Tx/Re-eval Impressions Chest X-Ray 12/31/19 14:35 IMPRESSION: No acute pathology Electronically Signed: Watson Spear, at 15:19 EST Tel , Service support , 12/31/19 14:35 Chest PA and Lateral [RAD] Stat - Medical Decision Making Patient was given a DuoNeb treatment. On repeat evaluation he reports significant improvement in his breathing. He will be given albuterol inhaler for home. X-ray does not reveal infiltrate. My suspicion is he likely has underlying COPD given he is a long-term smoker. Patient will be referred to Dr. Brewer for follow-up. ED Disposition - Plan for ED Patient: Disposition: Home or Assisted Living Diagnosis: Bronchitis Instructions: BRONCHITIS, No Antibiotic (Adult) Referrals: Manolo Brewer DO [Primary Care Provider] - Additional Instructions: Albuterol inhaler - 2 puffs every 4-6 hours as needed.
[2019-12-31 14:31] VITALS: PULSE 89; RESP 18
[2019-12-31] MEDS: Ipratropium/Albuterol Sulfate 3 ML AMPUL.NEB INHALATION (14:31)
--- NOTE | 2019-12-31 14:35 | RAD_ITS ---
EXAM DESCRIPTION: PA and lateral chest CLINICAL HISTORY: 59 years Male, COUGH AND SOB FOR 2 DAYS COUGH AND SOB FOR 2 DAYS COMPARISON: Previous portable chest obtained on 09/23/2019 FINDINGS: The thorax is intact. The heart and mediastinum appear to be within normal limits. The lungs appear to be well areated without evidence of pneumonic consolidation or pleural effusion. RAD/Chest PA and Lateral IMPRESSION: No acute pathology Electronically Signed: Watson Spear, at 15:19 EST Tel , Service support ,
== END 2019-12-31 16:38 | disposition home or self-care (01) ==
PROVIDERS: Emergency Provider Emergency Medicine; PCP Student in an Organized Health Care Education/Training Program
DX: J40 Bronchitis, not specified as acute or chronic (principal); E78.5 Hyperlipidemia, unspecified; I10 Essential (primary) hypertension; K21.9 Gastro-esophageal reflux disease without esophagitis; F31.9 Bipolar disorder, unspecified; F17.200 Nicotine dependence, unspecified, uncomplicated; Z82.49 Family history of ischemic heart disease and other diseases of the circulatory system
CPT/HCPCS: 71046; 94640; 99282

== ENCOUNTER 2021-01-13 20:29 | Emergency (ER) | payer MEDICAID, SELFPAY ==
[2021-01-13 20:29] VITALS: BP 148/98; PULSE 101; RESP 18; TEMP 36.6; O2SAT 97; BMI 33.1
[2021-01-13 20:31] VITALS: BP 148/98; PULSE 101; RESP 18; TEMP 36.6; O2SAT 97
--- NOTE | 2021-01-13 20:41 | ED.DCSUM_ITS ---
History of Present Illness Chief Complaint: Bite Informant: Patient Onset: Today Current Severity: Mild Maximum Severity: Moderate Narrative: She presents with a dog bite to the left hand. Patient states he was playing w ith his dog who is approximately a year and a half old. They were playing rough and the dog bit him in the left hand. He has a 1.5 cm skin tear/laceration to the palmar aspect of his left hand over the second MCP joint. He states this area has bled through 2 different dressings over the past 3 and half hours. Patient denies being on anticoagulants. He is right-hand dominant. - Past Medical History (1) Bipolar disorder Status: Chronic (2) Essential (primary) hypertension Status: Chronic (3) GERD (gastroesophageal reflux disease) Status: Chronic (4) Hyperlipidemia Status: Chronic Past Medical History - Allergies and Home Meds Allergies/Adverse Reactions: Allergies No Known Allergies Allergy (Verified 01/13/21 20:31) Primary Care Physician: Manolo Brewer DO [Primary Care Provider] - 1 Week Prior records reviewed: Yes Surgical History: appendectomy Lives: Spouse/ Significant Other Smoking Status: Current every day smoker - Family History Maternal Family History: Reports: Heart Disease, Hypertension, - - No family history of CAD, hypertension or diabetes. Paternal Family History: Reports: - - No family history of CAD, hypertension or diabetes. Review of Systems General: Denies: Chills, Fever Eyes: Denies: Visual changes - bilaterally ENT: Denies: Bilateral ear pain Cardiovascular: Denies: Chest pain Respiratory: Denies: Dyspnea, Cough Gastrointestinal: Denies: Abdominal pain, Vomiting, Diarrhea Genitourinary: Denies: Dysuria Musculoskeletal: Reports: Extremity Pain Skin: Reports: Wounds Neurological: Denies: Weakness, Parasthesia Hematologic: Denies: Easy bruising, Easy bleeding Allergy: Denies: Uticaria Physical Exam Vital Signs/Narrative: Vital Signs Temp Pulse Resp BP Pulse Ox 01/13/21 20:31 98 F 101 H 18 148/98 H 97 01/13/21 20:29 98 F 101 H 18 148/98 H 97 Inital Vital Signs reviewed: Yes General: Well nourished, Well developed Head: Normocephalic ENT: Moist mucous membranes Neck: Supple Cardiovascular: Regular rate, Regular rhythm Respiratory: No distress Extremities: - - 1.5 cm laceration to the palmar arch of the left hand over the second MCP joint. Mild bleeding at this time. Small hematoma to the posterior hand around the same area. Full range of motion of all digits with good cap refill distally. Neurological: Alert, Oriented x3, Normal Strength, Normal Sensation Psychological: Normal affect Diagnostic/Tx/Re-eval - Medical Decision Making Patient's hand is dressed and elevated. Left hand x-rays were obtained which per my interpretation reveal no evidence of foreign body. No evidence of bony injury. Hand is reexamined. Bleeding has significantly diminished. The patient's wound is slightly gaping. I did explain to him that although we do not like to suture animal bites in this case I think 2 sutures will be needed across the wound loosely. He agrees. 3 cc of 1% lidocaine are infused locally. Wound is thoroughly irrigated. 2 simple interval sutures with 4-0 nylon are placed. Dressing is applied and patient was given wound care instructions. He will be treated with a course of Augmentin, first dose given here. Procedures - Lacerations No standard instances Length: 0.2 in Laceration repair: Local Number of Sutures/Beau: 2 Suture Information: Ethilon, Simple, 4-0 ED Disposition - Plan for ED Patient: Disposition: Home or Assisted Living Diagnosis: Dog bite Instructions: ED Dog Bite Prescriptions: Amox/Clavulanate Tablet [Augmentin Tablet] 875 mg PO Q12H #10 tab Transmission Status: Received by [facility] [place] - [id number] Referrals: Manolo Brewer DO [Primary Care Provider] - 1 Week
[2021-01-13] MEDS: Amox/Clavulanate 875 MG Tablet PO (21:01)
--- NOTE | 2021-01-13 21:05 | RAD_ITS ---
INDICATION: bite EXAMINATION/TECHNIQUE: X-RAY - LEFT XR Hand Min 3 Views COMPARISON: None. FINDINGS: No acute fracture or malalignment. No blastic or lytic lesions. Mild scattered degenerative changes are seen. The soft tissues are unremarkable. RAD/Hand Min 3 Views IMPRESSION: No acute radiographic abnormalities. Electronically Signed: Norbert Robles MD at 21:44 EST Tel , Service support ,
[2021-01-13 21:37] VITALS: BP 126/90; PULSE 67; RESP 16; O2SAT 98
== END 2021-01-13 21:38 | disposition home or self-care (01) ==
PROVIDERS: Emergency Provider Emergency Medicine; PCP Student in an Organized Health Care Education/Training Program
DX: S61.452A Open bite of left hand, initial encounter (principal); W54.0XXA Bitten by dog, initial encounter; E78.5 Hyperlipidemia, unspecified; F31.9 Bipolar disorder, unspecified; I10 Essential (primary) hypertension; K21.9 Gastro-esophageal reflux disease without esophagitis; F17.200 Nicotine dependence, unspecified, uncomplicated; Z82.49 Family history of ischemic heart disease and other diseases of the circulatory system
CPT/HCPCS: 73130; 99283

== ENCOUNTER 2021-04-06 15:20 | Inpatient (IN) | payer MEDICAID, SELFPAY ==
[2021-04-06] VITALS (11 sets, daily range): BP systolic 118–184; BP diastolic 77–118; PULSE 88–133; RESP 14–18; TEMP 36.6–37; O2SAT 96–99; BMI 28.2; BMI 25.8
--- NOTE | 2021-04-06 15:22 | RAD_ITS ---
STUDY: X-RAY CHEST REASON FOR EXAM: Male, 60 years old. Neuro deficit, acute, stroke suspected TECHNIQUE: 1 view COMPARISON: Prior chest radiograph of 12/31/2019 FINDINGS: Shallow inspiration with mild bibasilar atelectatic changes. Azygous lobe present, normal variation. There is no demonstrated pleural abnormality. Normal size heart. Normal mediastinum and michael. Normal visualized pulmonary arteries. Mild elongation of the thoracic aorta. There are diffuse degenerative changes of the visualized thoracic spine. Normal visualized ribs, clavicles, and shoulders. There is no demonstrated abnormality of the visualized soft tissue structures of the upper abdomen. RAD/Chest 1 View IMPRESSION: Shallow inspiration with mild bibasilar atelectasis. No additional acute cardiopulmonary findings or changes. Electronically Signed: Pratibha Ramsey MD at 17:19 EDT , Service support ,
--- NOTE | 2021-04-06 15:22 | EKG12_ITS ---
Test Reason : STROKE TEAM Blood Pressure : / mmHG Vent. Rate : 117 BPM Atrial Rate : 117 BPM P-R Int : 148 ms QRS Dur : 120 ms QT Int : 366 ms P-R-T Axes : 071 068 033 degrees QTc Int : 510 ms Poor data quality, interpretation may be adversely affected Sinus tachycardia Right bundle branch block Possible Lateral infarct , age undetermined Cannot rule out Inferior infarct , age undetermined Abnormal ECG Confirmed by CESAR GUDINO, CHUY ([id number]), managing editor CATIE BENITEZ ([id number]) on 04/10/2021 10:00:54 AM Referred By: MAGGI Confirmed By:CHUY GUERRERO MD
--- NOTE | 2021-04-06 15:22 | CT_ITS ---
STUDY: CTA HEAD AND NECK WITH CONTRAST REASON FOR EXAM: Male, 60 years old. Neuro deficit, acute, stroke suspected RADIATION DOSAGE (If Supplied By Facility): CTDIvol = ( 20.11 ) mGy, DLP = ( 816.02 ) mGycm TECHNIQUE: CT angiography was performed with a multi-detector CT scanner. Data acquisition was obtained from the skull base through the vertex following intravenous administration of IV 100mL Isovue-370. MIP images were reconstructed from the axial data set. Post-processing of the angiographic images was performed, with multiplanar reformation and 3D reconstruction. Individualized dose optimization techniques were used for this CT. COMPARISON: CT head performed the same day FINDINGS: Patient motion limits evaluation of cervical portion of the right and left internal carotid arteries, distal vertebral arteries and the vascular structures at the base of the skull and cavernous sinus. The bilateral petrous and cavernous carotid arteries are not visualized due to patient motion. CT head performed the same day demonstrated mild right and moderate left cavernous carotid artery atherosclerotic disease. The supraclinoid bifurcation is grossly unremarkable bilaterally.. Normal right A1 segments of the anterior cerebral artery. There is hypoplastic development of the left A1 segment of the anterior cerebral arteries with an atretic but intact artery. Normal intact anterior communicating artery (ACOM). Normal bilateral A2 segments of the anterior cerebral arteries. Normal right M1 and M2 segments of the middle cerebral arteries, with a normal M1 bifurcation. Normal left M1 and M2 segments of the middle cerebral arteries, with a normal M1 bifurcation. Normal right posterior communicating artery (PCOM). There is non-visualization of the left posterior communicating artery (PCOM). Normal visualized bilateral vertebral arteries. Normal basilar artery with a normal basilar bifurcation. The posterior circulation is markedly limited by patient motion. There is grossly no occlusion of the basilar artery are visualized LEGAL SERVICE SPECIALIST or SCA. There is no demonstrated aneurysm of the [place]. There is no demonstrated abnormality of the visualized brain. AORTIC ARCH: Normal visualized aortic arch. Normal origins of the brachiocephalic, left common carotid, and left subclavian arteries. RIGHT CAROTID ARTERIES: Normal right common carotid artery (CCA). There is mild atherosclerotic plaque formation with minimal narrowing of the right carotid bulb. There is mild atherosclerotic plaque formation of the origin of the right internal carotid artery with less than 50% cross sectional diameter stenosis. Grossly unremarkable cervical portion of the right internal carotid artery accounting for patient motion. Normal origin of the right external carotid artery (ECA). LEFT CAROTID ARTERIES: Normal left common carotid artery (CCA). There is mild atherosclerotic plaque formation with minimal narrowing of the left carotid bulb. There is mild atherosclerotic plaque formation of the origin of the left internal carotid artery with less than 50% cross sectional diameter stenosis. Grossly unremarkable cervical portion of the left internal carotid artery accounting for patient motion. Normal origin of the left external carotid artery (ECA). VERTEBRAL ARTERIES: Normal visualized bilateral vertebral arteries. CT/STROKE CTA Head AND Neck W/Con IMPRESSION: Exam is markedly limited by patient motion. Those regions not limited by patient motion do not demonstrate definite occlusion or aneurysm. N.B. : The above information has been verbally conveyed by Anne Harrell MD to Matt Collazo on 04/06/2021 16:01:50 (ET). Electronically Signed: Anne Harrell MD at 16:20 EDT Tel , Service support ,
--- NOTE | 2021-04-06 15:23 | CT_ITS ---
We are attempting to reach an attending provider to discuss findings. An addendum with communication details will be sent when the communication is complete. STUDY: CT HEAD STROKE PROTOCOL W/O CONTRAST INJECTION REASON FOR EXAM: Male, 60 years old. Neuro deficit, acute, stroke suspected RADIATION DOSAGE (If Supplied By Facility): CTDIvol = ( ) mGy, DLP = ( ) mGycm TECHNIQUE: Transaxial CT imaging of the brain was performed without administration of intravenous contrast material. Individualized dose optimization techniques were used for this CT. COMPARISON: CT head 03/26/12 FINDINGS: Normal soft tissue structures. Normal calvarium. Normal size ventricles and extra-axial spaces for the patient''s age. Normal white matter tracts of the cerebral hemispheres. Normal basal ganglia and thalami. Normal brainstem. Normal cerebellum. There is no intracranial hemorrhage. There are no findings of an acute ischemic infarction. Normal visualized paranasal sinuses. ASPECT score: 10 CT/STROKE Brain/Head without Cont IMPRESSION: Normal unenhanced CT scan of the brain. Electronically Signed: Anne Harrell MD at 15:59 EDT Tel , Service support ,
--- NOTE | 2021-04-06 15:30 | CM.ED ---
SOCIAL WORK Stroke Alert Patient in CT. Patient's niece present and states patient lives with her and other family. Education and emotional support provided. This worker to remain available for needs. Joseph Barajas, HEATER PLANER OPERATOR, CERTIFIED ALCOHOL DRUG COUNSELOR
--- NOTE | 2021-04-06 15:36 | ED.VIS.STROK ---
HPI History of Present Illness Chief Complaint: Neuro S/Sx Informant: patient, family and EMS Onset/Context/Timing Onset: - (Please read HPI) Context: - (Reportedly awoke this morning with symptoms at 1030) Current Severity: Unable to determine Maximum Severity: Unable to determine Worsened by: Possibly head trauma Relieved by: Nothing Associated Symptoms Associated Symptoms: Negative for Nausea and Vomiting Narrative Narrative: Patient is a middle-age male with history of bipolar affective disorder, schizoaffective disorder, hypertension who had a fall 2 days ago. He has been repeating himself since then according to niece. He had incontinence since the fall. He had incontinence of urine and stool. History is limited because of his cognitive impairment and psychiatric disorder. Niece has to redirect him and at times makes things more difficult to assess patient. Prior similar symptoms: No Recent Illness/Hospitalization: No PFSH PFSH Medical History Bipolar disorder Essential (primary) hypertension GERD (gastroesophageal reflux disease) Hyperlipidemia Home Medications colestipol 1 gm PO BID 05/10/19 [History Last Taken 09/22/19] lansoprazole 15 mg PO DAILY 05/10/19 [History Last Taken 09/22/19] lithium carbonate 900 mg PO QHS 05/10/19 [History Last Taken 09/16/19] risperidone 1 mg PO DAILY 05/10/19 [History Last Taken 09/16/19] montelukast 10 mg PO QHS 09/23/19 [History Last Taken 09/16/19] aspirin 81 mg PO DAILY@0800 #30 tab.chew 09/24/19 [Rx Last Taken Unknown] atorvastatin 40 mg PO QHS #30 tab 09/24/19 [Rx Last Taken Unknown] carvedilol 6.25 mg PO BID #60 tab 09/24/19 [Rx Last Taken Unknown] lisinopril 10 mg PO DAILY #30 tab 09/24/19 [Rx Last Taken Unknown] amoxicillin-pot clavulanate 875 mg PO Q12H #10 tab 01/13/21 [Rx Last Taken Unknown] risperidone 8 mg PO QHS 01/13/21 [History Last Taken Unknown] trihexyphenidyl 2 mg PO BID 01/13/21 [History Last Taken Unknown] Allergy/AdvReac Type Severity Reaction Status Date / Time No Known Allergies Allergy Verified 04/06/21 15:46 Surgical History History of left heart catheterization (09/24/19) no surgical history Social History (Updated 04/06/21 @ 16:[address] Nadia Pineda MD) household members: other details: Lives in a jail with other MRDD individuals Smoking Status: Current every day smoker tobacco type: cigarettes alcohol intake: never details: Unknown with regards to alcohol use substance use type: does not use, unknown and other ROS ROS ED Review of Systems ROS Unobtainable: due to mental condition and due to mental status Constitutional Constitutional ED: Denies fever(s) Eyes Eyes: Reports change in vision and other Details: Visual disturbance since fall per nieceVisual disturbance since fall per niece Integumentary Reports Abrasions Neurologic Neurologic: Denies headache(s) Psychiatric Psychiatric: Reports depression Hematologic/Lymphatic Hematologic/Lymphatic: Denies easy bruising EXAM Physical Exam Const Vital Signs: 04/06/21 15:21 04/06/21 15:22 04/06/21 15:41 Temperature 97.9 F Temperature Source Oral Pulse Rate 111 H 111 H Respiratory Rate 18 14 Blood Pressure 184/77 H 125/98 H Blood Pressure Mean 112 107 Pulse Ox 98 99 99 Oxygen Delivery Method Room Air Room Air 04/06/21 16:03 Temperature Temperature Source Pulse Rate 103 H Respiratory Rate 17 Blood Pressure 118/99 H Blood Pressure Mean 105 Pulse Ox 98 Oxygen Delivery Method Positive well nourished, well developed and unkempt General Appearance ED: unkempt and well developed HEENT Reports TM's clear and dry mucous membranes atraumatic Tympanic Membrane ED: Yes TM's clear Mouth ED: Yes dry mucous membranes Mouth: dry mucous membranes Eyes PERRL and EOMs intact bilaterally General Eye ED: Negative for pale conjunctiva or scleral icterus Chest Wall inspection of chest normal Resp normal respiratory effort and clear to auscultation bilaterally Cardio no murmurs Rate: regular rate Rhythm: regular rhythm Heart Sounds: S1 normal and S2 normal GI normal to inspection, nondistended, normoactive bowel sounds Back/Spine no CVA tenderness Cervical Spine: Negative for cervical spine tenderness Thoracic Spine / Upper Back: Negative for thoracic spinal tenderness Extremity Negative for normal to inspection General Extremety ED: Yes tenderness; Negative for deformity General Extremity: Negative for deformity Neuro CN's II-XII intact bilaterally and no sensory deficits noted Sensorium / Orientation: alert Motor Exam: strength 5/5 throughout Psych Psych Narrative: Unable to determine because of history of schizophrenia, bipolar affective disorder and MRDD. Appearance: unkempt Skin Skin Narrative: Abrasions noted with eschar left elbow region STROKE Vital Signs/Narrative: Vital Signs Temp Pulse Resp BP Pulse Ox 04/06/21 16:03 103 H 17 118/99 H 98 04/06/21 15:41 99 04/06/21 15:22 111 H 14 125/98 H 99 04/06/21 15:21 97.9 F 111 H 18 184/77 H 98 Inital Vital Signs reviewed: Yes NIHSS Initial: 1a Level of Consciousness: 1 1b LOC Questions (Score 2 if aphasic/stupor): 1 1c LOC Commands (Only score 1st attempt): 0 2 Best Gaze (If aphasic, use reflexive mvmts.): 0 4 Facial Palsy: 0 5 Motor Arm Right (UN = amputation/fusion): 0 5 Motor Arm Left: 0 6 Motor Leg Right: 0 6 Motor Leg Left: 0 7 Limb ataxia (Only + if out of proportion): UN 8 Sensory (Aphasia/stupor=0 or 1, coma=2): 0 9 Best Language: 0 10 Dysarthria (mute, coma=2, intubated=UN): 2 11 Extinction and Inattention (only scored if +): 0 Total Score: 4 MDM MDM MDM Narrative Medical decision making narrative: Stroke team initiated from field. Patient last known well to 100 last evening when he went to bed. He awoke with symptoms at 1030. Stroke order set was initiated. At [facility] was contacted. After niece arrived she was interviewed. She states he has been repeating himself since fall 2 days ago. There is evidence of trauma to his left elbow. If CT of the head with out contrast reveals bleed will not perform CTA. [facility] was contacted since history is confounding and difficult to determine what actually happened and what are his baseline deficits. Dr. Nino did review the CT with out which was unremarkable. He was not able to visualize the CTA since images had not been transmitted. In light of patient's compounding medical problems which makes an accurate history he recommends also metabolic infectious work-up and if negative MRI. Lab Data Attestation: I reviewed the patient's lab results. Labs: Laboratory Results - last 24 hr 04/06/21 04/06/21 04/06/21 15:36 15:36 15:36 WBC 5.2 RBC 4.25 L Hgb 12.3 L Hct 37.8 L MCV 88.9 MCH 28.9 MCHC 32.5 RDW Std Deviation 42.4 RDW Coeff of Fernando 13.0 Plt Count 174 MPV 9.8 Immature Gran % (Auto) 0.200 Neut % (Auto) 46.0 L Lymph % (Auto) 42.4 H Toole % (Auto) 10.4 H Eos % (Auto) 0.4 Baso % (Auto) 0.6 Absolute Neuts (auto) 2.4 Absolute Lymphs (auto) 2.20 Nucleated RBC % 0 PT 14.3 INR 1.2 APTT 30.1 Sodium 134 L Potassium 4.0 Chloride 103 Carbon Dioxide 27.0 Anion Gap 4 L BUN 13 Creatinine 1.09 Estim Creat Clear Calc 72.97 Est GFR (MDRD) Af Amer 89 Est GFR (MDRD) Non-Af 73 BUN/Creatinine Ratio 11.9 Glucose 93 Calcium 8.7 Troponin I < 0.015 UA is pending. CBC is remarkable for anemia. Coags are normal. Electrolyte panel and troponin are normal. Hospitalist to follow results of UA to determine if this is the cause of his altered mental status. Radiography Diagnostic Testing: Radiology Impression Head/Neck CTA 04/06/21 15:22 IMPRESSION: Exam is markedly limited by patient motion. Those regions not limited by patient motion do not demonstrate definite occlusion or aneurysm. N.B. : The above information has been verbally conveyed by Anne Harrell MD to Mattcourt Donovano on 04/06/2021 16:01:50 (ET). Electronically Signed: Anne Harrell MD at 16:20 EDT Tel , Service support , ADDENDUM: 04/06/21 3017 IMPRESSION: Exam is markedly limited by patient motion. Those regions not limited by patient motion do not demonstrate definite occlusion or aneurysm. N.B. : The above information has been verbally conveyed by Anne Harrell MD to Matt Collazo on 04/06/2021 16:01:50 (ET). Electronically Signed: Anne Harrell MD at 16:20 EDT Tel , Service support , Brain CT 04/06/21 15:23 IMPRESSION: Normal unenhanced CT scan of the brain. Electronically Signed: Anne Harrell MD at 15:59 EDT Tel , Service support , ADDENDUM: 04/06/21 1608 IMPRESSION: Normal unenhanced CT scan of the brain. N.B. : The above information has been verbally conveyed by Anne Harrell MD to Matt Collazo MD, MD, on 04/06/2021 16:01:56 (ET). Electronically Signed: Anne Harrell MD at 15:59 EDT Tel , Service support , Stroke Documentation Questions Stroke Team Activated: Yes Reviewed Inclusion/Exclusion criteria: Yes IV Alteplase (t-PA) Administered: No No contraindications for IV Alteplase (t-PA) administration.: No Alteplase (t-PA) risks, benefits, alternative discussed: No Discharge Plan Triage Chief Complaint: Neuro S/Sx ED Provider: Matt Collazo Dx/Rx/DC Orders Clinical Impression: Acute alteration in mental status, Essential (primary) hypertension Prescriptions: No Action risperidone 4 tablet 1 mg PO DAILY RF: 0 lithium carbonate 450 mg tablet extended release 900 mg PO QHS RF: 0 lansoprazole 15 capsule,delayed release(DR/EC) 15 mg PO DAILY RF: 0 colestipol 1 tablet 1 gm PO BID RF: 0 montelukast 10 tablet 10 mg PO QHS RF: 0 lisinopril 10 MG tablet 10 mg PO DAILY Qty: 30 RF: 0 aspirin 81 MG tablet,chewable 81 mg PO DAILY@0800 Qty: 30 RF: 0 atorvastatin 40 MG tablet 40 mg PO QHS Qty: 30 RF: 0 carvedilol 6.25 MG tablet 6.25 mg PO BID Qty: 60 RF: 0 risperidone 4 MG tablet 8 mg PO QHS RF: 0 trihexyphenidyl 2 MG tablet 2 mg PO BID RF: 0 amoxicillin-pot clavulanate 875 MG tablet 875 mg PO Q12H Qty: 10 RF: 0 Primary Care Provider: Manolo Brewer Referrals: Manolo Brewer DO [Primary Care Provider] - Disposition Disposition: Acute Care Hospital [facility]
[2021-04-06 15:44] LABS: Absolute Neutrophil Count 2.4 X10^3/uL (2.0-7.7); Basophil# 0.03 X10^3/uL; Basophil% 0.6 % (0-1); Eosinophil# 0.02 X10^3/uL; Eosinophils% 0.4 % (0-5); Hematocrit 37.8 % (40-54); Hemoglobin 12.3 g/dL (13.0-16.5); Lymphocyte % 42.4 % (19-41); Mean Corp Hgb Conc 32.5 g/dL (32-36); Mean Corpuscular Hgb 28.9 pg (27.0-32.0); Mean Corpuscular Volume 88.9 fL (80-94); Mean Platelet Vol. 9.8 fl (6.2-12.0); Monocyte# 0.54 X10^3/uL; Monocyte% 10.4 % (0-10); NRBC Flagged by Analyzer 0 % (0-5); Neutrophil # 2.39 X10^3/uL (2.7-7.7); Platelet Count 174 K/mm3 (150-450); RBC Distribution Width SD 42.4 fl (35.1-43.9); Red Blood Count 4.25 M/mm3 (4.6-6.2); White Blood Count 5.2 K/mm3 (4.4-11.0)
[2021-04-06 15:59] LABS: International Normalized Ratio 1.2; Prothrombin Time (Protime)PT. 14.3 SECONDS (11.7-14.9)
[2021-04-06 16:00] LABS: Partial Thromboplast Time 30.1 Seconds (24.1-36.2)
[2021-04-06 16:12] LABS: Anion Gap 4 (5-15); BUN 13 mg/dL (7-18); BUN/Creat Ratio 11.9 RATIO (10-20); Calcium,Total 8.7 mg/dL (8.5-10.1); Chloride 103 mmol/L (98-107); Creatinine, Serum 1.09 mg/dL (0.70-1.30); EST Glomerular Filtration Rate 73 mL/min (>60); Est Glom Filt Rate - Afr Amer 89 mL/min (>60); Estimated Creatinine Clearance 72.97 ml/min; Glucose 93 mg/dL (74-106); Sodium Level 134 mmol/L (136-145)
--- NOTE | 2021-04-06 16:13 | HP.PCM.HOS_ITS ---
HPI - General General Date of Admission: 04/06/21 Date of Service: 04/06/21 Chief Complaint: Slurred speech, difficult to redirect. HPI Narrative The patient is a 60 y/o M w/ PMHx: Bipolar disorder/Schizophrenia, HTN, HLD, GERD, Tobacco use who presents to the [facility] ED on 04/06/21 with history of last known normal 2100 the evening prior with upon awakening slurred speech and significant difficult re-directing which is not his baseline as well as family reporting issues over the last several days with incontinence. Family present, his niece who notes they have been attempting to set her up as HCPOA but have yet to be able. He is notably more calm with her present. There was noted agitation while he had been in the ED and he was administered geodon per review of medications. She notes he is still not at his baseline. Work-up in the ED included T 97.9, heart rate 111, BP initially 184/77 with improvement to 118/99, respiratory rate 18, 99% on room air, CBC with WBC 5.2, hemoglobin 12.3, platelet 174 without marked shift, unremarkable coags, BMP unremarkable aside sodium 134, troponin less than 0.015, CT of the brain as well as CT of the head neck per preliminary report per radiology by discussion with the ED physician noted to be unremarkable with no acute intracranial findings and no evidence of acute ischemic injury with noted congenital findings unchanged, EKG with sinus tachycardia with right bundle branch block unchanged from prior with no acute evidence of ischemia. In the ED patient ministered Geodon 10 mg IM x1 secondary to agitation. PFSH Medical History Anxiety Bipolar disorder Depression Essential (primary) hypertension Hyperlipidemia Hypertension Schizophrenia Smoker Home Medications colestipol 1 gm PO BID 05/10/19 [History Last Taken 04/06/21] lithium carbonate 900 mg PO QHS 05/10/19 [History Last Taken 04/05/21] aspirin 81 mg PO DAILY@0800 #30 tab.chew 09/24/19 [Rx Last Taken 04/06/21] atorvastatin 40 mg PO QHS #30 tab 09/24/19 [Rx Last Taken 04/05/21] carvedilol 6.25 mg PO BID #60 tab 09/24/19 [Rx Last Taken 04/06/21] lisinopril 10 mg PO DAILY #30 tab 11/22/19 [Rx Last Taken 04/06/21] risperidone 8 mg PO QHS 01/13/21 [History Last Taken 04/05/21] trihexyphenidyl 2 mg PO BID 01/13/21 [History Last Taken 04/06/21] risperidone 1 mg PO DAILY 04/06/21 [History Last Taken 04/06/21] Allergy/AdvReac Type Severity Reaction Status Date / Time No Known Allergies Allergy Verified 04/06/21 15:46 unable to obtain (Patient MRDD w/ schizophrenia/bipolar disorder, unable to give accurate family history.) Surgical History (Updated 04/06/21 @ 18:07 by Tawanna Diaz) History of left heart catheterization (09/24/19) Social History (Updated 04/06/21 @ 18:[address] Nadia Pineda MD) household members: other details: Lives in a correction with other MRDD individuals Smoking Status: Current every day smoker tobacco type: cigarettes Smoking packs per day: 2 Smoking cigarettes per day: 40.0 alcohol intake: never details: Unknown with regards to alcohol use substance use type: does not use ROS Review of Systems ROS Unobtainable: due to mental condition Vital Signs Vital Signs Vital Signs: 04/06/21 15:21 04/06/21 15:22 04/06/21 15:41 Temperature 97.9 F Temperature Source Oral Pulse Rate 111 H 111 H Respiratory Rate 18 14 Blood Pressure 184/77 H 125/98 H Blood Pressure Mean 112 107 Pulse Ox 98 99 99 Oxygen Delivery Method Room Air Room Air 04/06/21 16:03 Temperature Temperature Source Pulse Rate 103 H Respiratory Rate 17 Blood Pressure 118/99 H Blood Pressure Mean 105 Pulse Ox 98 Oxygen Delivery Method Weight Weight: 191 lb 5.78 oz Body Mass Index (BMI) 28.2 Physical Exam Narrative Physical Examination: General: awake, alert, oriented to self only, seems to know family member niece present but difficult examination assessment, underlying MRDD, remains intermittently cooperative, will start to following requests then stop, seated upright in the ED bed in no apparent distress, currently calm but family present. Skin: normal color, normal turgor, no icterus, no cyanosis. HEENT: AT/NC, EOMI, PERRLA, dry MM, no carotid bruits or JVD noted. Lungs: Diminished BS, > bases, moderate effort, no rales, ronchi or wheezing. Heart: Regular rate and rhythm; no gallop, rub audible. Abdomen: soft, NTTP, ND, normal BS, no obvious HSM. Extremities: no cyanosis, clubbing, or edema. Neurological: patient awake, alert, oriented as noted, cognitive function not baseline intact per family report, more confused than baseline, still slurred speech, underlying psychiatric history and MRDD; pupils equally reactive to light and accommodation, cranial nerves II-XII grossly normal, moving all 4 extremities, no focal deficits, strength preserved, difficult FTN/HTS as will perform activities but very difficult to direct and needs constant re-direction, equivocal babinski. Psychiatric: affect appears currently calm, more flat, had previously been noted to be agitated, history of bipolar disorder and schizophrenia. Results Lab / Micro Data Result Diagrams: 04/06/21 15:36 04/06/21 15:36 Labs: Laboratory Results - last 24 hr 04/06/21 04/06/21 04/06/21 15:36 15:36 15:36 WBC 5.2 RBC 4.25 L Hgb 12.3 L Hct 37.8 L MCV 88.9 MCH 28.9 MCHC 32.5 RDW Std Deviation 42.4 RDW Coeff of Fernando 13.0 Plt Count 174 MPV 9.8 Immature Gran % (Auto) 0.200 Neut % (Auto) 46.0 L Lymph % (Auto) 42.[address] [facility] % (Auto) 10.4 H Eos % (Auto) 0.4 Baso % (Auto) 0.6 Absolute Neuts (auto) 2.4 Absolute Lymphs (auto) 2.20 Nucleated RBC % 0 PT 14.3 INR 1.2 APTT 30.1 Sodium 134 L Potassium 4.0 Chloride 103 Carbon Dioxide 27.0 Anion Gap 4 L BUN 13 Creatinine 1.09 Estim Creat Clear Calc 72.97 Est GFR (MDRD) Af Amer 89 Est GFR (MDRD) Non-Af 73 BUN/Creatinine Ratio 11.9 Glucose 93 Calcium 8.7 Troponin I < 0.[address] 04/06/21 15:23 IMPRESSION: Normal unenhanced CT scan of the brain. Electronically Signed: Anne Harrell MD at 15:59 EDT Tel , Service support , ADDENDUM: 04/06/21 1608 IMPRESSION: Normal unenhanced CT scan of the brain. N.B. : The above information has been verbally conveyed by Anne Harrell MD to Matt Collazo MD, MD, on 04/06/2021 16:01:56 (ET). Electronically Signed: Anne Harrell MD at 15:59 EDT Tel , Service support , Assessment & Plan Assessment/Plan (1) CVA (cerebral vascular accident): QUALIFIERS: CVA mechanism: unspecified Qualified Code(s): I63.9 - Cerebral infarction, unspecified PLAN: The patient is a 60 y/o M w/ PMHx: Bipolar disorder/Schizophrenia, HTN, HLD, GERD, Tobacco use who presents to the [facility] ED on 04/06/21 with history of last known normal 2100 the evening prior with upon awakening slurred speech and significant difficult re-directing which is not his baseline as well as family reporting issues over the last several days with incontinence. 1. Slurred speech, difficulty following commands/redirection concerning for possible TIA/CVA versus underlying infectious etiology given recent history of urinary incontinence: Will admit to PCU, will obtain MRI Brain, ECHO, PT/ OT/Speech/Nutrition evaluation per protocol. Will allow permissive HTN pending MRI, maintain on asa, statin w/ AM FLP, fall precautions, HgBA1c/Mag/TSH/FLP pending, need UA to assure no UTI as may be primarily etiology for this presentation however stroke will still need to be ruled out given difficulty with information with patient status. 2. Anxiety and depression/bipolar disorder/schizoaffective disorder complicated by underlying MRDD: We will continue patient home Risperdal, lithium with level requested, complicates presentation as noted #1. 3. Hypertension: Given presentation and ongoing symptoms with NIH stroke scale 4, add back once appropriate, PRN agents per protocol. 4. Hyperlipidemia: Continue home statin regimen. AM FLP. 5. Allergic rhinitis: We will continue patient home Singulair regimen. 6. GERD: We will continue patient home PPI. 7. Tobacco Abuse: Encouraged cessation, inpatient consultation per RT, NR if desired. 8. DVT prophylaxis: SCDs, Lovenox. 9. CODE status: Patient HCPOA currently being set-up, Niece present and notes she will be the HCPOA. No LW in place formally either. She is interested in CM/SW assist with these items therefore recommended she discuss this with them in AM given later in the day admission. Discussed CODE status at length including difference between FULL code, DNR-CCA and DNR-CC status. Following discussions about the differences in these status, requested Full Code status. Advanced Care Planning Face to Face Time: 16 minutes. Charges/Coding Visit Charges Inpatient E&M: 40773 Init Hosp L3 Procedures Hospitalists Procedures: 31926 Advncd Care Plan 30 Min
[2021-04-06] MEDS: Ziprasidone IM 20 MG/ML VIAL 10 MG IM (16:25)
[2021-04-06 17:27] LABS: Bacteria 0 SEEN /hpf (None Seen); Mucous, Urine 0 SEEN /hpf (<or=2+); Red Blood Cells-Urine 0 SEEN /hpf (0-5); Squamous Epithelial Cells - UA 0 SEEN /hpf (0-5)
[2021-04-06 17:28] LABS: Color, Urine Straw (Yellow); Glucose, Dipstick Normal (Normal); Ketone-Dipstick Negative (Negative); Leukocyte Esterase-Dipstick Negative /ul (Negative); Nitrite-Dipstick Negative (Negative); Occult Blood-Urine Negative /ul (Negative); Protein-Dipstick Negative (Negative); Urine Bilirubin Dipstick Negative (Negative); Urine Clarity Clear (Clear); Urine Urobilinogen Normal (Normal)
[2021-04-06 17:33] LABS: White Blood Cells 0-5 SEEN /hpf (0-5)
--- NOTE | 2021-04-06 19:58 | ECHOCS_ITS ---
Reason For Study: CVA Procedure This was a 2D Doppler, Color Flow transthoracic echocardiogram. Very technically difficult study. Patient was unable to hold still for testing, continuously tried to get up and out of bed while pushing my hand away. Contrast injection performed. The study was technically difficult. Contrast injection was performed. Exam performed portable in patient room. Left Ventricle Mild concentric left ventricular hypertrophy. Based upon the 2D echocardiographic images obtained there appears to be grossly normal left ventricular size, wall motion, and systolic function. The estimated ejection fraction is 75 %. Unable to assess diastolic dysfunction. Right Ventricle Based upon the 2D echocardiographic images obtained there appears to be grossly normal right ventricular size and systolic function. Atria Based upon the 2D echocardiographic images obtained the left atrium appears to be grossly normal. Based upon the 2D echocardiographic images obtained the right atrium appears to be grossly normal. No doppler evidence for ASD. Mitral Valve There is no mitral annular calcification. Mitral valve not well visualized. Tricuspid Valve The tricuspid valve is not well visualized. Aortic Valve The aortic valve is not well visualized. Pulmonic Valve The pulmonic valve is not well visualized. Great Vessels The aortic root is not well visualized. Pericardium/Pleural Trivial pericardial effusion. There are no echocardiographic indications of cardiac tamponade. Medication Diluted definity 4ml given slow IV push to enhance endocardial definition. MMode/2D Measurements & Calculations LVIDd: 4.2 cm IVSd: 1.3 cm LVIDs: 2.2 cm LVPWd: 1.6 cm FS: 49.0 % Doppler Measurements & Calculations MV E max bonny: 71.6 cm/sec PA V2 max: 72.7 cm/sec MV A max bonny: 115.1 cm/sec MV E/A: 0.62 ECHO/Echo Complete W/ Contrast Interpretation Summary The study was technically difficult. Contrast injection was performed. Based upon the 2D echocardiographic images obtained there appears to be grossly normal left ventricular size, wall motion, and systolic function. The estimated ejection fraction is 75 %. Mild concentric left ventricular hypertrophy. Trivial pericardial effusion. There are no echocardiographic indications of cardiac tamponade. Unable to assess diastolic dysfunction. Comment: Previous transthoracic echocardiogram from 03-27-2012 reported a saline contrast study demonstrating no right to left interatrial shunt. Ordering Physician: Nadia Pineda Referring Physician: Manolo Brewer Performed By: Levon Casarez RCS
--- NOTE | 2021-04-06 19:58 | MRI_ITS ---
HISTORY: CVA. TECHNIQUE: Multiplanar and multisequence MR images of the brain were obtained without gadolinium. # of images incl. paperwork: 273. COMPARISON: None. FINDINGS: BRAIN PARENCHYMA:Mild foci of increased T2 FLAIR signal in the cerebral white matter bilaterally. No abnormal focus of restricted diffusion or acute intracranial hemorrhage. CSF SPACES: No significant mass effect or midline shift. No gross extra-axial fluid collection. MRI/Brain without Contrast IMPRESSION: Limited examination due to motion artifact. No evidence for acute infarct. Mild chronic small vessel ischemic gliosis. at 1236 Reported and signed by: Vivi Chino MD Electronically Signed: Vivi Chino MD at 12:35 EDT Tel , Service support ,
[2021-04-06] MEDS: Enoxaparin 40 MG/0.4 ML Syringe SC (21:37)
[2021-04-06] MEDS: RisperiDONE 2 MG Tablet 8 MG PO (21:44)
[2021-04-06] MEDS: Atorvastatin Calcium 40 MG Tablet PO (21:44)
[2021-04-06] MEDS: Montelukast 10 MG Tablet PO (21:45)
[2021-04-06] MEDS: TRIHEXYPHENIDYL HCL 2 MG TABLET PO (22:44)
[2021-04-06] MEDS: hydrOXYzine PAM 25 MG Capsule 100 MG PO (23:45)
[2021-04-07] VITALS (15 sets, daily range): BP systolic 91–155; BP diastolic 51–102; PULSE 64–130; RESP 15–18; TEMP 36.3–37.1; O2SAT 95–97; BMI 25.8
[2021-04-07] MEDS: Haloperidol Lactate 5 MG/ML Vial IV (01:52)
--- NOTE | 2021-04-07 06:44 | PCM.PN.BLA ---
Progress Note Overnight patient with continued intermittent agitation and per discussion with nursing staff is frequently awoken by her niece who is her caregiver and originally had been allowed to stay as he seemed more calm the ED following her stay. Patient with continued garbled speech. Patient today with PT and OT as well as speech evaluations with diet alterations but allowance and recommendations currently for jail facility placement consideration. Patient denies fevers, chills, nausea, emesis, abdominal pain, chest pain or dyspnea but difficult as patient with significantly altered speech. Physical Exam Narrative Chest X-Ray 04/06/21 15:22 IMPRESSION: Shallow inspiration with mild bibasilar atelectasis. No additional acute cardiopulmonary findings or changes. Head/Neck CTA 04/06/21 15:22 IMPRESSION: Exam is markedly limited by patient motion. Those regions not limited by patient motion do not demonstrate definite occlusion or aneurysm. ADDENDUM: 04/06/21 1627 IMPRESSION: Exam is markedly limited by patient motion. Those regions not limited by patient motion do not demonstrate definite occlusion or aneurysm. Brain CT 04/06/21 15:23 IMPRESSION: Normal unenhanced CT scan of the brain. Echocardiogram 04/06/21 19:58 Interpretation Summary The study was technically difficult. Contrast injection was performed. Based upon the 2D echocardiographic images obtained there appears to be grossly normal left ventricular size, wall motion, and systolic function. The estimated ejection fraction is 75 %. Mild concentric left ventricular hypertrophy. Trivial pericardial effusion. There are no echocardiographic indications of cardiac tamponade. Unable to assess diastolic dysfunction. Comment: Previous transthoracic echocardiogram from 03-27-2012 reported a saline contrast study demonstrating no right to left interatrial shunt. Temp Pulse Resp BP Pulse Ox 98 F 120 H 17 120/77 95 04/07/21 10:06 04/07/21 10:06 04/07/21 10:06 04/07/21 10:06 04/07/21 10:06 04/07/21 04/07/21 04/07/21 12:11 06:40 06:40 WBC RBC Hgb Hct MCV MCH MCHC RDW Std Deviation RDW Coeff of Fernando Plt Count MPV Immature Gran % (Auto) Neut % (Auto) Lymph % (Auto) Addison % (Auto) Eos % (Auto) Baso % (Auto) Absolute Neuts (auto) Absolute Lymphs (auto) Nucleated RBC % PT INR APTT Sodium 137 Potassium 3.8 Chloride 107 Carbon Dioxide 25.0 Anion Gap 5 BUN 11 Creatinine 1.16 Estim Creat Clear Calc 68.57 Est GFR (MDRD) Af Amer 83 Est GFR (MDRD) Non-Af 68 BUN/Creatinine Ratio 9.5 L Glucose 84 Hemoglobin A1c 5.1 Calcium 9.5 Magnesium Total Bilirubin 0.70 AST 25 ALT 37 Alkaline Phosphatase 113 Troponin I Total Protein 8.0 Albumin 4.2 Globulin 3.8 Albumin/Globulin Ratio 1.1 Triglycerides 79 Cholesterol 93 LDL Cholesterol 44 VLDL Cholesterol 16 HDL Cholesterol 33 L TSH 1.78 Urine Color Urine Clarity Urine pH Ur Specific Mcgraw Urine Protein Urine Glucose (UA) Urine Ketones Urine Occult Blood Urine Nitrite Urine Bilirubin Urine Urobilinogen Ur Leukocyte Esterase Urine RBC Urine WBC Ur Squamous Epith Cells Urine Bacteria Urine Mucus POC Glucose 113 H 04/07/21 04/06/21 04/06/21 06:40 17:10 15:36 WBC 5.4 RBC 4.90 Hgb 14.3 Hct 43.3 MCV 88.4 MCH 29.2 MCHC 33.0 RDW Std Deviation 41.6 RDW Coeff of Fernando 12.7 Plt Count 179 MPV 9.5 Immature Gran % (Auto) 0.200 Neut % (Auto) 56.1 Lymph % (Auto) 34.0 Addison % (Auto) 8.9 Eos % (Auto) 0.6 Baso % (Auto) 0.2 Absolute Neuts (auto) 3.0 Absolute Lymphs (auto) 1.83 Nucleated RBC % 0 PT INR APTT Sodium Potassium Chloride Carbon Dioxide Anion Gap BUN Creatinine Estim Creat Clear Calc Est GFR (MDRD) Af Amer Est GFR (MDRD) Non-Af BUN/Creatinine Ratio Glucose Hemoglobin A1c Calcium Magnesium 2.0 Total Bilirubin AST ALT Alkaline Phosphatase Troponin I Total Protein Albumin Globulin Albumin/Globulin Ratio Triglycerides Cholesterol LDL Cholesterol VLDL Cholesterol HDL Cholesterol TSH Urine Color Straw Urine Clarity Clear Urine pH 8.0 Ur Specific Mcgraw 1.010 Urine Protein Negative Urine Glucose (UA) Normal Urine Ketones Negative Urine Occult Blood Negative Urine Nitrite Negative Urine Bilirubin Negative Urine Urobilinogen Normal Ur Leukocyte Esterase Negative Urine RBC 0 SEEN Urine WBC 0-5 SEEN Ur Squamous Epith Cells 0 SEEN Urine Bacteria 0 SEEN Urine Mucus 0 SEEN POC Glucose 04/06/21 04/06/21 04/06/21 15:36 15:36 15:36 WBC 5.2 RBC 4.25 L Hgb 12.3 L Hct 37.8 L MCV 88.9 MCH 28.9 MCHC 32.5 RDW Std Deviation 42.4 RDW Coeff of Fernando 13.0 Plt Count 174 MPV 9.8 Immature Gran % (Auto) 0.200 Neut % (Auto) 46.0 L Lymph % (Auto) 42.4 H Addison % (Auto) 10.4 H Eos % (Auto) 0.4 Baso % (Auto) 0.6 Absolute Neuts (auto) 2.4 Absolute Lymphs (auto) 2.20 Nucleated RBC % 0 PT 14.3 INR 1.2 APTT 30.1 Sodium 134 L Potassium 4.0 Chloride 103 Carbon Dioxide 27.0 Anion Gap 4 L BUN 13 Creatinine 1.09 Estim Creat Clear Calc 72.97 Est GFR (MDRD) Af Amer 89 Est GFR (MDRD) Non-Af 73 BUN/Creatinine Ratio 11.9 Glucose 93 Hemoglobin A1c Calcium 8.7 Magnesium Total Bilirubin AST ALT Alkaline Phosphatase Troponin I < 0.015 Total Protein Albumin Globulin Albumin/Globulin Ratio Triglycerides Cholesterol LDL Cholesterol VLDL Cholesterol HDL Cholesterol TSH Urine Color Urine Clarity Urine pH Ur Specific Mcgraw Urine Protein Urine Glucose (UA) Urine Ketones Urine Occult Blood Urine Nitrite Urine Bilirubin Urine Urobilinogen Ur Leukocyte Esterase Urine RBC Urine WBC Ur Squamous Epith Cells Urine Bacteria Urine Mucus POC Glucose Physical Examination: General: awake, alert, oriented to self only, following commands better than day prior, underlying MRDD, seated upright in the PCU bed, moving more and attempting to get out of bed than day prior. Skin: normal color, normal turgor, no icterus, no cyanosis. HEENT: AT/NC, EOMI, PERRLA, mildly less dry MM. Lungs: Diminished BS, > bases, moderate effort, no rales, ronchi or wheezing. Heart: Regular rate and rhythm; no gallop, rub audible. Abdomen: soft, NTTP, ND, normal BS. Extremities: no cyanosis, clubbing, or edema. Neurological: patient awake, alert, oriented as noted, cognitive function not baseline intact per family report, still confused above baseline, ongoing slurred speech, underlying psychiatric history and MRDD; pupils equally reactive to light and accommodation, cranial nerves II-XII grossly normal, moving all 4 extremities, no focal deficits, strength difficult to assess but given ongoing notable movement and attempts to get out of bed appears preserved, unable to assess FTN/HTS but very difficult to direct, equivocal babinski. Psychiatric: affect appears more agitated, moving a lot in the bed but will follow commands, history of bipolar disorder and schizophrenia. Assessment & Plan Assessment/Plan (1) CVA (cerebral vascular accident): QUALIFIERS: CVA mechanism: unspecified Qualified Code(s): I63.9 - Cerebral infarction, unspecified (2) Acute alteration in mental status: PLAN: The patient is a 60 y/o M w/ PMHx: Bipolar disorder/Schizophrenia, HTN, HLD, GERD, Tobacco use who presents to the [facility] ED on 04/06/21 with history of last known normal 2100 the evening prior with upon awakening slurred speech and significant difficult re-directing which is not his baseline as well as family reporting issues over the last several days with incontinence. 1. Slurred speech, difficulty following commands/redirection concerning for possible TIA/CVA versus underlying infectious etiology given recent history of urinary incontinence: Admitted to PCU, MRI Brain obtained and results pending, ECHO w/ grossly normal left ventricular size, wall motion, and systolic function, EF 75 %, mild concentric LVH, trivial pericardial effusion with no echocardiographic indications of cardiac tamponade, 03-27-2012 reported a saline contrast study demonstrating no right to left interatrial shunt. PT/OT/Speech/Nutrition evaluation per protocol. Currently maintained on permissive HTN pending MRI, maintain on asa, statin w/ AM FLP, fall precautions. TSH normal 1.78, FLP w/ TG 79, Total Chol 93, LDL 44, VLDL 16, HDL 33, HgBA1c 5.1%, UA not marked appearing. Once MRI brain read completed will request Neurology consultation. 2. Anxiety and depression/bipolar disorder/schizoaffective disorder complicated by underlying MRDD: Continue patient home Risperdal, lithium with level requested, complicates presentation as noted #1. 3. Hypertension: Given presentation and ongoing symptoms with NIH stroke scale 4, add back once appropriate or if MRI not marked appearing, PRN agents per protocol. 4. Hyperlipidemia: Continue home statin regimen. FLP as noted. 5. Allergic rhinitis: Continue patient home Singulair regimen. 6. GERD: Continue patient home PPI. 7. Tobacco Abuse: Encouraged cessation, inpatient consultation per RT, NR if desired. 8. DVT prophylaxis: SCDs, Lovenox. 9. CODE status: Patient HCPOA currently being set-up, Niece present and notes she will be the HCPOA. No LW in place formally either. She is currently his caregiver and he lives with her. Discussed with CM/FREEMAN and they will discuss her need to likely go through the court systems given his status. Visit Charges Inpatient E&M: 07233 Subs Hosp L2
[2021-04-07 06:53] LABS: Absolute Lymphocyte Count 1.83 X10^3/uL (0.83-4.51); Basophil# 0.01 X10^3/uL; Basophil% 0.2 % (0-1); Eosinophil# 0.03 X10^3/uL; Eosinophils% 0.6 % (0-5); Hematocrit 43.3 % (40-54); Hemoglobin 14.3 g/dL (13.0-16.5); Lymphocyte # 1.83 X10^3/ul (0.83-4.51); Mean Corpuscular Hgb 29.2 pg (27.0-32.0); Mean Corpuscular Volume 88.4 fL (80-94); Mean Platelet Vol. 9.5 fl (6.2-12.0); Monocyte# 0.48 X10^3/uL; Monocyte% 8.9 % (0-10); NRBC Flagged by Analyzer 0 % (0-5); Neutrophil # 3.03 X10^3/uL (2.7-7.7); Neutrophil % 56.1 % (47-70); Platelet Count 179 K/mm3 (150-450); RBC Distribution Width CV 12.7 % (11.6-14.6); RBC Distribution Width SD 41.6 fl (35.1-43.9); White Blood Count 5.4 K/mm3 (4.4-11.0)
[2021-04-07 07:32] LABS: ALB/GLOB Ratio 1.1 RATIO (0.9-2.4); AST(SGOT) 25 U/L (15-37); Alanine Aminotransfer ALT/SGPT 37 U/L (16-61); Albumin, Serum 4.2 g/dL (3.2-5.0); Alkaline Phosphatase 113 U/L (45-117); Anion Gap 5 (5-15); BUN 11 mg/dL (7-18); BUN/Creat Ratio 9.5 RATIO (10-20); Calcium,Total 9.5 mg/dL (8.5-10.1); Chloride 107 mmol/L (98-107); Cholesterol 93 mg/dL (200); Creatinine, Serum 1.16 mg/dL (0.70-1.30); EST Glomerular Filtration Rate 68 mL/min (>60); Est Glom Filt Rate - Afr Amer 83 mL/min (>60); Estimated Creatinine Clearance 68.57 ml/min; Globulin 3.8 g/dL (2.2-4.2); Glucose 84 mg/dL (74-106); High Density Lipoprotein 33 mg/dL; Potassium 3.8 mmol/L (3.5-5.1); Sodium Level 137 mmol/L (136-145); Thyroid Stim Hormone (TSH) 1.78 uIU/mL (0.358-3.74); Triglycerides 79 mg/dL; Very Low Density Lipoprotein 16 mg/dL (5-40)
[2021-04-07 07:52] LABS: Hemoglobin A1c 5.1 % (3.8-5.6)
[2021-04-07] MEDS: LORazepam 2 MG/ML Syringe IV (08:02)
[2021-04-07] MEDS: 0.9% Saline Lock 10 ML Syringe IV ×2 (08:02→14:39)
[2021-04-07] MEDS: Enoxaparin 40 MG/0.4 ML Syringe SC (12:16)
[2021-04-07] MEDS: Pantoprazole Sodium 20 MG Tablet PO (12:17)
[2021-04-07] MEDS: Aspirin 81 MG TAB.CHEW PO (12:17)
[2021-04-07 12:21] LABS: Bedside Glucose 113 mg/dL (70-110)
--- NOTE | 2021-04-07 12:58 | CASEMGMT ---
Addendum entered by Ana M Avalos 04/07/21 18:47: FREEMAN spoke to patient's niece, Génesis for clarification about where patient resided. Génesis siad that patient does not reside in a fci but lives with her and her fiance', Génesis's sister Carla, and Carla's fibridget' and Génesis's son (who was born in 1961 per Génesis) and Génesis's stepson. Génesis was also provided with resource from [place] on the process of guardianship. Ana M Avalos MSW JEFFY Original Note: FREEMAN Note: Referral Source: MD Referral Reason: Patient has psychiatric and developmental disabilities and would benefit from [facility] at discharge. Lives with niece SW called antonio's niece, Génesis Pitt, and she stated she would come back to the hospital to meet with this music writer. FREEMAN met with Génesis Sweetie at the entrance to Progressive Care Unit (PCU) and no other patient's or families were present allowing for confidentiality. Génesis said that she wanted her sister, Carla, to hear conversation as her sister was going to assist with caring for patient who they refer to as Uncle Peter. Génesis said that patient has lived with her for 12 years. Génesis said that she helped care for elderly patient in [facility] and also has been trained [facility] in [facility] as a FIRE PATROLLER. Génesis said that she can care for patient but I don't know how to do vitas. Génesis said I know how to measure and drain a cath. Génesis reports that she does not have guardianship. Génesis said that she and her fibridget' would like to get financial Power of Residential Support Worker (POA) and plan to call social security to be patient's payee. Génesis said that her sister, Carla, would do the medical POA. Patient said that she would like guardianship but no one will help me.. but the doctor says she will sign whatever Peter needs. SW asked Génesis what she feels she needs assistance is in regards to guardianship and she said I know what guardianship is and I have had it read to me. FREEMAN again clarified as to what Génesis is inquiring about assistance with and Génesis said paperwork.. someone to help get me started. FREEMAN explained that medical doctor has to sign the paperwork for expert evaluation and that the person requesting guardianship has to file paperwork in Probate Court. FREEMAN asked Génesis if she has any additional questions about guardianship and she said no. Génesis said that patient had no medical equipment at home and she and her sister, Carla (who was on the phone) said that patient has been perfectly fine and independent prior to this hospitalization. Génesis said that patient resides in a 2 story home with his bed on the 2nd floor. Génesis said that they will move patient to the first floor as their is a bathroom on the first floor. Génesis said that there are 3 steps into the home with handrails but she will have a ramp built if he needs it. Génesis said that the bathroom has a shower/bath combination. Génesis said that the bathroom has grab bars and shower chair. Génesis said that patient did not have any medical equipment such as walker or rollator prior to this hospitalization. FREEMAN asked about patient's psychiatric history. Génesis said that patient has the highest depression on the list, anxiety and schizophrenia. Génesis said that [facility]. Génesis reports that patient is med compliant. Génesis reports patient does not receive any other community resource services such as services from [employer]ability. Génesis reports patient only has psychiatry from [facility] and has no counselor or casemanager at [facility]. Génesis said that patient had his COVID vaccine at [facility] 1 [facility]2 weeks ago. Génesis said that if patient is unable to rehab she stated he has told her and her sister he wants to at home with family. FREEMAN discussed with Génesis need for patient to have services to make him stronger (ie rehab) and she agreed that she did not want patient to go home and fall and come back to the hospital. SW asked Génesis to review list of [facility] SNF and select a #2 choice if TCU is unable to take patient. SW encouraged her to research on line other SNF placements. FREEMAN advised that the switchboard wire worker helper, Johanne, will be here on Friday to discuss another SNF option for patient. Plan: SNF for patient at discharge.
--- NOTE | 2021-04-07 14:05 | NURSING ---
Sitter placed in room.
[2021-04-07] MEDS: Haloperidol Lactate 5 MG/ML Vial 1 MG IV ×2 (14:37→19:37)
--- NOTE | 2021-04-07 14:55 | PCM.HOSP.N ---
Hospitalist Note Notified around 12:00 regarding patient fall in room, unwitnessed. Upon entering room, patient resting comfortably in bed. Patient non-verbal at this time however no indication of pain or obvious injury. Siiter placed at bedside for safety. Brain CT ordered out of caution.
--- NOTE | 2021-04-07 14:59 | CT_ITS ---
HISTORY: Fall. TECHNIQUE: Multiple axial images were obtained of the brain without intravenous contrast. A radiation dose optimization technique was used for this scan. # of images including paperwork:248. COMPARISON: 04/06/2021. FINDINGS: BRAIN PARENCHYMA:Mild foci and zones of low attenuation in the cerebral white matter most compatible with chronic small vessel ischemic gliosis. INTRACRANIAL HEMORRHAGE: No acute intracranial hemorrhage. CSF SPACES/MASS EFFECT: Cerebral ventricles, cortical sulci, and other extra-axial CSF spaces within normal limits in size for patient's age. No midline shift or other significant mass effect. ORBITS: Unremarkable. CALVARIUM: Intact. PARANASAL SINUSES/MASTOID AIR CELLS: Clear. CT/Brain/Head without Contrast IMPRESSION: No acute intracranial process identified. Individualized dose optimization techniques were used for this CT. at 1612 Reported and signed by: Vivi Chino MD Electronically Signed: Vivi Chino MD at 16:10 EDT Tel , Service support ,
--- NOTE | 2021-04-07 15:19 | TELEMED_ITS ---
[facility] Telemed has confirmed receipt of a request for visit. This document confirms receipt of the order initiating the consult. To find the results of the consultation, please view the patient's reports for the scanned Telemed Consult.
--- NOTE | 2021-04-07 17:11 | EKG12_ITS ---
Test Reason : TACHY Blood Pressure : / mmHG Vent. Rate : 111 BPM Atrial Rate : 111 BPM P-R Int : 148 ms QRS Dur : 122 ms QT Int : 356 ms P-R-T Axes : 079 060 029 degrees QTc Int : 484 ms Sinus tachycardia Right bundle branch block Abnormal ECG Confirmed by CESAR GUDINO, CHUY ([id number]), editor sound CATIE BENITEZ ([id number]) on 04/10/2021 10:28:09 AM Referred By: CHARLES Confirmed By:CHYU GUERRERO MD
[2021-04-07] MEDS: 0.9% Normal Saline 1,000 ML 125 ML IV (17:13)
[2021-04-07] MEDS: TRIHEXYPHENIDYL HCL 2 MG TABLET PO ×2 (17:20→20:23)
[2021-04-07] MEDS: Metoprolol Tartrate 5 MG/5 ML Vial IV (17:26)
--- NOTE | 2021-04-07 17:53 | PCM.HOSP.N ---
Hospitalist Note Discussed case with Neurology, they agreed likely secondary to lithium intoxication, agreed w/ hydration, repeat levels. If improving with hold and levels normalizing depending on repeat AM evaluation, neurology noted may consider d/c EEG but if still confused recommended attempt to obtain, but noted understanding may be difficult to obtain secondary to patient agitation.
[2021-04-07] MEDS: Carvedilol 6.25 MG Tablet PO (18:16)
[2021-04-07] MEDS: 0.9% Normal Saline 1,000 ML 999 ML IV (18:16)
[2021-04-07] MEDS: Acetaminophen 325 MG Tablet 650 MG PO (18:45)
[2021-04-07] MEDS: LORazepam 1 MG Tablet 2 MG PO (20:22)
[2021-04-07] MEDS: RisperiDONE 2 MG Tablet 8 MG PO (20:23)
[2021-04-07] MEDS: Montelukast 10 MG Tablet PO (20:24)
[2021-04-07] MEDS: Atorvastatin Calcium 40 MG Tablet PO (20:24)
--- NOTE | 2021-04-07 22:02 | NURSING ---
Coreg held tonight blood pressure was 96/51 on reassessment, family declined to have it administered due to him sleeping at this time and blood pressure is lower
[2021-04-08] VITALS (11 sets, daily range): BP systolic 94–160; BP diastolic 55–84; PULSE 65–95; RESP 15–18; TEMP 36.6–37.6; O2SAT 93–98
[2021-04-08] MEDS: 0.9% Normal Saline 1,000 ML 125 ML IV ×3 (04:48→20:35)
[2021-04-08 06:06] LABS: Absolute Lymphocyte Count 1.79 X10^3/uL (0.83-4.51); Absolute Neutrophil Count 2.6 X10^3/uL (2.0-7.7); Basophil# 0.02 X10^3/uL; Basophil% 0.4 % (0-1); Eosinophil# 0.04 X10^3/uL; Eosinophils% 0.8 % (0-5); Hematocrit 37.1 % (40-54); Hemoglobin 12.2 g/dL (13.0-16.5); Lymphocyte # 1.79 X10^3/ul (0.83-4.51); Lymphocyte % 37.1 % (19-41); Mean Corp Hgb Conc 32.9 g/dL (32-36); Mean Corpuscular Hgb 29.7 pg (27.0-32.0); Mean Corpuscular Volume 90.3 fL (80-94); Mean Platelet Vol. 9.5 fl (6.2-12.0); Monocyte# 0.38 X10^3/uL; Monocyte% 7.9 % (0-10); NRBC Flagged by Analyzer 0 % (0-5); Neutrophil # 2.58 X10^3/uL (2.7-7.7); Neutrophil % 53.6 % (47-70); Platelet Count 150 K/mm3 (150-450); RBC Distribution Width CV 12.9 % (11.6-14.6); RBC Distribution Width SD 42.5 fl (35.1-43.9); Red Blood Count 4.11 M/mm3 (4.6-6.2); White Blood Count 4.8 K/mm3 (4.4-11.0)
[2021-04-08 06:34] LABS: ALB/GLOB Ratio 1.2 RATIO (0.9-2.4); AST(SGOT) 23 U/L (15-37); Alanine Aminotransfer ALT/SGPT 29 U/L (16-61); Albumin, Serum 3.6 g/dL (3.2-5.0); Alkaline Phosphatase 98 U/L (45-117); Anion Gap 4 (5-15); BUN 15 mg/dL (7-18); BUN/Creat Ratio 15.6 RATIO (10-20); Calcium,Total 9.1 mg/dL (8.5-10.1); Chloride 112 mmol/L (98-107); Creatinine, Serum 0.96 mg/dL (0.70-1.30); EST Glomerular Filtration Rate 85 mL/min (>60); Est Glom Filt Rate - Afr Amer 102 mL/min (>60); Estimated Creatinine Clearance 82.85 ml/min; Globulin 2.9 g/dL (2.2-4.2); Glucose 86 mg/dL (74-106); Potassium 4.1 mmol/L (3.5-5.1); Protein, Total 6.5 g/dL (6.4-8.2); Sodium Level 140 mmol/L (136-145)
--- NOTE | 2021-04-08 07:39 | NURSING ---
Sitter removed from room.
--- NOTE | 2021-04-08 08:51 | PCM.PN.HOSP ---
Subjective Subjective Patient overnight with continued intermittent agitation, been moving frequently. Patient was dosed with oral Ativan and following this significantly improved, fell asleep and continued to do so. Family present and discussed again current presentation likely secondary to lithium overdose which was discussed with neurology with MRI without any evidence of acute stroke and no acute findings otherwise. Noted to family will attempt still to get EEG although less effective given sedation and medications given. Patient without obvious evidence of fevers, chills, nausea, emesis, abdominal pain, chest pain or dyspnea. Objective Data Objective Data Vital Signs: Vital Signs Temp Pulse Resp BP Pulse Ox 98.5 F 73 16 94/55 L 96 04/08/21 02:36 04/08/21 07:27 04/08/21 02:36 04/08/21 02:36 04/08/21 07:20 Oxygen Delivery Method Room Air Weight: 174 lb 13.225 oz Body Mass Index (BMI) 25.8 Intake & Output: Intake and Output for Last 24 Hours 04/06/21 04/07/21 04/08/21 23:59 23:59 23:59 Intake Total 120 / 420 2297.92 / 2297.92 972.08 / 972.08 Output Total 525 / 525 Balance 120 / 145 1772.92 / 1772.92 972.08 / 972.08 Lab / Micro Data Result Diagrams: 04/08/21 05:53 04/08/21 05:53 Labs: Laboratory Results - last 24 hr 04/07/21 04/07/21 04/07/21 12:11 13:21 13:21 WBC Corrected WBC RBC Hgb Hct MCV MCH MCHC RDW Std Deviation RDW Coeff of Fernando Plt Count MPV Immature Gran % (Auto) Neut % (Auto) Lymph % (Auto) [place] % (Auto) Eos % (Auto) Baso % (Auto) Absolute Neuts (auto) Absolute Lymphs (auto) Total Counted Neutrophils % (Manual) Band Neutrophils % Lymphocytes % (Manual) Monocytes % (Manual) Eosinophils % (Manual) Basophils % (Manual) Metamyelocytes % Myelocytes % Promyelocytes % Blast Cells % Plasma Cell % (Manual) Other Cells % Nucleated RBC % Nucleated RBCs/100 WBC Differential Comment Diff Path Review Hypersegmented Neuts Atypical Lymphocytes Reactive Lymphocytes Smudge Cells Toxic Granulation Toxic Vacuolation Dohle Bodies Sri Rods Platelet Estimate Plt Morphology Comment RBC Morphology Polychromasia Hypochromasia Poikilocytosis Basophilic Stippling Anisocytosis Microcytosis Macrocytosis Spherocytes Sickle Cells Target Cells Tear Drop Cells Ovalocytes Stomatocytes [place] Bodies [place] Cells Bite Cells Crenated Cell Acanthocytes (Spur) Rouleaux Schistocytes Sodium Potassium Chloride Carbon Dioxide Anion Gap BUN Creatinine Estim Creat Clear Calc Est GFR (MDRD) Af Amer Est GFR (MDRD) Non-Af BUN/Creatinine Ratio Glucose Calcium Total Bilirubin AST ALT Alkaline Phosphatase Ammonia 28.0 Total Protein Albumin Globulin Albumin/Globulin Ratio [place] 2.10 H* POC Glucose 113 H 04/08/21 04/08/21 04/08/21 05:18 05:18 05:53 WBC Cancelled Corrected WBC Cancelled RBC Cancelled Hgb Cancelled Hct Cancelled MCV Cancelled MCH Cancelled MCHC Cancelled RDW Std Deviation Cancelled RDW Coeff of Fernando Cancelled Plt Count Cancelled MPV Cancelled Immature Gran % (Auto) Cancelled Neut % (Auto) Cancelled Lymph % (Auto) Cancelled [place] % (Auto) Cancelled Eos % (Auto) Cancelled Baso % (Auto) Cancelled Absolute Neuts (auto) Cancelled Absolute Lymphs (auto) Cancelled Total Counted Cancelled Neutrophils % (Manual) Cancelled Band Neutrophils % Cancelled Lymphocytes % (Manual) Cancelled Monocytes % (Manual) Cancelled Eosinophils % (Manual) Cancelled Basophils % (Manual) Cancelled Metamyelocytes % Cancelled Myelocytes % Cancelled Promyelocytes % Cancelled Blast Cells % Cancelled Plasma Cell % (Manual) Cancelled Other Cells % Cancelled Nucleated RBC % Cancelled Nucleated RBCs/100 WBC Cancelled Differential Comment Cancelled Diff Path Review Cancelled Hypersegmented Neuts Cancelled Atypical Lymphocytes Cancelled Reactive Lymphocytes Cancelled Smudge Cells Cancelled Toxic Granulation Cancelled Toxic Vacuolation Cancelled Dohle Bodies Cancelled Sri Rods Cancelled Platelet Estimate Cancelled Plt Morphology Comment Cancelled RBC Morphology Cancelled Polychromasia Cancelled Hypochromasia Cancelled Poikilocytosis Cancelled Basophilic Stippling Cancelled Anisocytosis Cancelled Microcytosis Cancelled Macrocytosis Cancelled Spherocytes Cancelled Sickle Cells Cancelled Target Cells Cancelled Tear Drop Cells Cancelled Ovalocytes Cancelled Stomatocytes Cancelled [place] Bodies Cancelled [place] Cells Cancelled Bite Cells Cancelled Crenated Cell Cancelled Acanthocytes (Spur) Cancelled Rouleaux Cancelled Schistocytes Cancelled Sodium Cancelled 140 Potassium Cancelled 4.1 Chloride Cancelled 112 H Carbon Dioxide Cancelled 24.0 Anion Gap Cancelled 4 L BUN Cancelled 15 Creatinine Cancelled 0.96 Estim Creat Clear Calc Cancelled 82.85 Est GFR (MDRD) Af Amer Cancelled 102 Est GFR (MDRD) Non-Af Cancelled 85 BUN/Creatinine Ratio Cancelled 15.6 Glucose Cancelled 86 Calcium Cancelled 9.1 Total Bilirubin Cancelled 0.80 AST Cancelled 23 ALT Cancelled 29 Alkaline Phosphatase Cancelled 98 Ammonia Total Protein Cancelled 6.5 Albumin Cancelled 3.6 Globulin Cancelled 2.9 Albumin/Globulin Ratio Cancelled 1.2 [place] POC Glucose 04/08/21 04/08/21 05:53 06:45 WBC 4.8 Corrected WBC RBC 4.11 L Hgb 12.2 L Hct 37.1 L MCV 90.3 MCH 29.7 MCHC 32.9 RDW Std Deviation 42.5 RDW Coeff of Fernando 12.9 Plt Count 150 MPV 9.5 Immature Gran % (Auto) 0.200 Neut % (Auto) 53.6 Lymph % (Auto) 37.1 [place] % (Auto) 7.9 Eos % (Auto) 0.8 Baso % (Auto) 0.4 Absolute Neuts (auto) 2.6 Absolute Lymphs (auto) 1.79 Total Counted Neutrophils % (Manual) Band Neutrophils % Lymphocytes % (Manual) Monocytes % (Manual) Eosinophils % (Manual) Basophils % (Manual) Metamyelocytes % Myelocytes % Promyelocytes % Blast Cells % Plasma Cell % (Manual) Other Cells % Nucleated RBC % 0 Nucleated RBCs/100 WBC Differential Comment Diff Path Review Hypersegmented Neuts Atypical Lymphocytes Reactive Lymphocytes Smudge Cells Toxic Granulation Toxic Vacuolation Dohle Bodies Sri Rods Platelet Estimate Plt Morphology Comment RBC Morphology Polychromasia Hypochromasia Poikilocytosis Basophilic Stippling Anisocytosis Microcytosis Macrocytosis Spherocytes Sickle Cells Target Cells Tear Drop Cells Ovalocytes Stomatocytes [place] Bodies Ye Cells Bite Cells Crenated Cell Acanthocytes (Spur) Rouleaux Schistocytes Sodium Potassium Chloride Carbon Dioxide Anion Gap BUN Creatinine Estim Creat Clear Calc Est GFR (MDRD) Af Amer Est GFR (MDRD) Non-Af BUN/Creatinine Ratio Glucose Calcium Total Bilirubin AST ALT Alkaline Phosphatase Ammonia Total Protein Albumin Globulin Albumin/Globulin Ratio [place] 1.50 H* POC Glucose Radiography Diagnostic Testing: Radiology Impression Echocardiogram 04/06/21 19:58 Interpretation Summary The study was technically difficult. Contrast injection was performed. Based upon the 2D echocardiographic images obtained there appears to be grossly normal left ventricular size, wall motion, and systolic function. The estimated ejection fraction is 75 %. Mild concentric left ventricular hypertrophy. Trivial pericardial effusion. There are no echocardiographic indications of cardiac tamponade. Unable to assess diastolic dysfunction. Comment: Previous transthoracic echocardiogram from 03-27-2012 reported a saline contrast study demonstrating no right to left interatrial shunt. Ordering Physician: Nadia Pineda Referring Physician: Manolo Brewer Performed By: Levon Casarez RCS Physical Exam Narrative Physical Examination: General: Patient sleeping, not alert, not able answer orientation questions, first time that patient has been witnessed to be asleep for length of time. Skin: Normal color, normal turgor, no icterus, no cyanosis. HEENT: AT/NC, EOM unable to be assessed given sleeping, mildly dry MM. Lungs: Diminished, appropriate effort, no rales, ronchi or wheezing. Heart: Regular rate and rhythm; no gallop, rub audible. Abdomen: Soft, NTTP, ND, distant normal BS. Extremities: No cyanosis, clubbing, or edema. Neurological: Patient sleeping, not alert, not able answer orientation questions, cognitive function unable to be assessed currently as sedate; moving all 4 extremities in his sleep occasionally. Psychiatric: Affect appears flat, sleeping, no acute evidence of depressive or anxiety feelings. Assessment & Plan Assessment/Plan (1) CVA (cerebral vascular accident): QUALIFIERS: CVA mechanism: unspecified Qualified Code(s): I63.9 - Cerebral infarction, unspecified (2) Acute alteration in mental status: PLAN: The patient is a 60 y/o M w/ PMHx: Bipolar disorder/Schizophrenia, HTN, HLD, GERD, Tobacco use who presents to [facility] ED on 04/06/21 with history of last known normal 2100 the evening prior with upon awakening slurred speech and significant difficult re-directing which is not his baseline as well as family reporting issues over the last several days with incontinence. 1. Slurred speech, difficulty following commands/redirection concerning for Metabolic Encephalopathy secondary to [place] Toxicity, Acute CVA RULED OUT: Admitted to PCU, MRI Brain without acute evidence of ischemia and repeat CT head obtained 04/07/21 afternoon secondary to fall although no obvious trauma without acute findings, ECHO w/ grossly normal left ventricular size, wall motion, and systolic function, EF 75 %, mild concentric LVH, trivial pericardial effusion with no echocardiographic indications of cardiac tamponade, 03/27/2012 reported a saline contrast study demonstrating no right to left interatrial shunt. Restarted on coreg given unremarkable MRI, NIHSS d/c. TSH normal 1.78, FLP w/ TG 79, Total Chol 93, LDL 44, VLDL 16, HDL 33, HgBA1c 5.1%, UA not marked appearing. Holding lithium, repeat level improving, trend and add back once assure improved clinically. EEG requested, will attempt but per discussion with Neurology (consulted), given sedation may be less useful information. 2. Anxiety and depression/bipolar disorder/schizoaffective disorder complicated by underlying MRDD: Continue patient home Risperdal, hold as noted #1 lithium given toxicity, complicates presentation as noted #1. 3. Hypertension: CVA ruled out, added back coreg with hold parameters, PRN agents per protocol. 4. Hyperlipidemia: Continue home statin regimen. FLP as noted. 5. Allergic rhinitis: Continue patient home Singulair regimen. 6. GERD: Continue patient home PPI. 7. Tobacco Abuse: Encouraged cessation, inpatient consultation per RT, NR if desired. 8. DVT prophylaxis: SCDs, Lovenox. 9. CODE status: Patient HCPOA currently being set-up, Niece present and notes she will be the HCPOA. No LW in place formally either. She is currently his caregiver and he lives with her. Discussed with CM/SW and they will discuss her need to likely go through the court systems given his status. Charges/Coding Visit Charges Inpatient E&M: 14822 Subs Hosp L2
[2021-04-08] MEDS: Enoxaparin 40 MG/0.4 ML Syringe SC (12:29)
[2021-04-08] MEDS: Pantoprazole Sodium 20 MG Tablet PO (15:05)
[2021-04-08] MEDS: Aspirin 81 MG TAB.CHEW PO (15:06)
[2021-04-08] MEDS: Carvedilol 6.25 MG Tablet PO ×2 (15:06→21:17)
[2021-04-08] MEDS: TRIHEXYPHENIDYL HCL 2 MG TABLET PO ×2 (15:08→21:16)
[2021-04-08] MEDS: Montelukast 10 MG Tablet PO (21:16)
[2021-04-08] MEDS: Atorvastatin Calcium 40 MG Tablet PO (21:16)
[2021-04-08] MEDS: RisperiDONE 2 MG Tablet 8 MG PO (21:17)
[2021-04-08] MEDS: MELATONIN 3 MG TABLET PO (21:17)
[2021-04-09] VITALS (7 sets, daily range): BP systolic 113–160; BP diastolic 74–95; PULSE 51–81; RESP 14–16; TEMP 36.5–36.8; O2SAT 96–99
[2021-04-09] MEDS: 0.9% Normal Saline 1,000 ML 125 ML IV (04:21)
[2021-04-09 06:29] LABS: Absolute Lymphocyte Count 2.35 X10^3/uL (0.83-4.51); Absolute Neutrophil Count 2.6 X10^3/uL (2.0-7.7); Basophil# 0.02 X10^3/uL; Basophil% 0.4 % (0-1); Eosinophil# 0.12 X10^3/uL; Eosinophils% 2.2 % (0-5); Hematocrit 35.8 % (40-54); Hemoglobin 11.4 g/dL (13.0-16.5); Lymphocyte # 2.35 X10^3/ul (0.83-4.51); Lymphocyte % 43.1 % (19-41); Mean Corp Hgb Conc 31.8 g/dL (32-36); Mean Corpuscular Hgb 29.3 pg (27.0-32.0); Mean Platelet Vol. 9.9 fl (6.2-12.0); Monocyte# 0.37 X10^3/uL; Monocyte% 6.8 % (0-10); NRBC Flagged by Analyzer 0 % (0-5); Neutrophil # 2.57 X10^3/uL (2.7-7.7); Neutrophil % 47.1 % (47-70); Platelet Count 141 K/mm3 (150-450); RBC Distribution Width SD 43.6 fl (35.1-43.9); Red Blood Count 3.89 M/mm3 (4.6-6.2); White Blood Count 5.5 K/mm3 (4.4-11.0)
[2021-04-09 06:59] LABS: ALB/GLOB Ratio 1.1 RATIO (0.9-2.4); AST(SGOT) 29 U/L (15-37); Alanine Aminotransfer ALT/SGPT 26 U/L (16-61); Albumin, Serum 3.1 g/dL (3.2-5.0); Alkaline Phosphatase 93 U/L (45-117); Anion Gap 3 (5-15); BUN 12 mg/dL (7-18); BUN/Creat Ratio 13.2 RATIO (10-20); Calcium,Total 8.8 mg/dL (8.5-10.1); Chloride 113 mmol/L (98-107); Creatinine, Serum 0.91 mg/dL (0.70-1.30); EST Glomerular Filtration Rate 90 mL/min (>60); Est Glom Filt Rate - Afr Amer 109 mL/min (>60); Globulin 2.9 g/dL (2.2-4.2); Glucose 89 mg/dL (74-106); Sodium Level 140 mmol/L (136-145)
[2021-04-09] MEDS: Aspirin 81 MG TAB.CHEW PO (09:28)
[2021-04-09] MEDS: Carvedilol 6.25 MG Tablet PO (09:28)
[2021-04-09] MEDS: Pantoprazole Sodium 20 MG Tablet PO (09:28)
[2021-04-09] MEDS: Enoxaparin 40 MG/0.4 ML Syringe SC (09:31)
--- NOTE | 2021-04-09 10:20 | CASEMGMT ---
PHQ-9 not completed as pt did not have a stroke. SW called pt's niece Génesis to speak w/her about intermediate choices, could not leave a message as her voicemail is not set up. SW will try again to reach niece. KRANTHI Brown
[2021-04-09] MEDS: TRIHEXYPHENIDYL HCL 2 MG TABLET PO (10:33)
--- NOTE | 2021-04-09 11:06 | CASEMGMT ---
SW spoke w/pt and pt's niece éGnesis in the room. Both pt and Génesis would like for pt to go home. They are agreeable to home health. Pt's niece states that pt has a walker and a shower chair. SW explained will let CM know. SW let CM know, she will speak w/pt and niece. KRANTHI Brown
--- NOTE | 2021-04-09 11:52 | PCM.DC ---
Discharge Instructions Diet Discharge Diet: - (Pur?ed diet, thin liquids) Activity Discharge Activity: Return to Normal Activity Dressing / Incision Call your doctor if you observe: Shortness of breath, Dizziness and Chest pain Follow Up Care Test Results: Test results from this visit will be discussed in further detail at your follow-up appointment, if applicable. Discharge Plan Admission Admit Date/Time: 04/06/21 16:31 Primary Reason for Your Visit: Altered mental status Attending Provider: Shruthi Carlos Primary Care Provider: Manolo Brewer Discharge Orders/Prescriptions Prescriptions: New lithium carbonate 600 mg capsule 600 mg PO QHS Qty: 30 RF: 0 Continued colestipol 1 tablet 1 gm PO BID RF: 0 lisinopril 10 MG tablet 10 mg PO DAILY Qty: 30 RF: 0 aspirin 81 MG tablet,chewable 81 mg PO DAILY@0800 Qty: 30 RF: 0 atorvastatin 40 MG tablet 40 mg PO QHS Qty: 30 RF: 0 carvedilol 6.25 MG tablet 6.25 mg PO BID Qty: 60 RF: 0 risperidone 4 MG tablet 8 mg PO QHS RF: 0 trihexyphenidyl 2 MG tablet 2 mg PO BID RF: 0 risperidone 1 mg tablet 1 mg PO DAILY RF: 0 Discontinued lithium carbonate 450 mg tablet extended release 900 mg PO QHS RF: 0 Referrals / Follow Up: Manolo Brewer DO [Primary Care Provider] - In 1 Week Disposition Disposition (needs filled in before D/C Order can be placed): Home Health Service
--- NOTE | 2021-04-09 12:00 | NURSING ---
Addendum entered and electronically signed by Vinita Miles 04/09/21 16:20: 1557- Called [facility] back to inquire about faxed inquiry and acceptance, no answer, VM left for Yareli. 1611- Called [facility] [phone], s/w Domitila who transferred to intake dept- s/w Oliver and [facility] will accept patient and finalizing, will call patient tomorrow to schedule visit times. Confirmed number to provide to patient, patient and niece at bedside aware and provided [facility]'s number. Primary nurse and charge nurse aware patient is good for DC. Will fax referral to [facility]. MORENA Sanchez Original Note: Addendum entered and electronically signed by Vinita Miles 04/09/21 15:33: 1444- Return call from Yareli at [facility] and [facility] takes [facility] and can do SOC 1-2 days, fax inquiry for review [phone]. Inquiry faxed. 1446- Called [facility] and s/w answering service. Return call from Gloria in plastic surgery- wrong dept. Called [facility] main number and under seal operator transferred to [facility] [phone]. Provided number [phone] for [facility], waited on line and hung up on. MORENA Sanchez Original Note: Addendum entered and electronically signed by Vinita Miles 04/09/21 13:54: 1247- Called [facility]- s/w Rohan and confirmed received fax but does not take [facility] 1249- Called [facility], S/w Henry does not have a SN 1251- Called [facility], Not currently taking patients this week 1255- Called [facility], left a VM for Kaitlynn to return call 1257- Called [facility] and s/w Kristin, states their sister takes straight [facility]- Almost [facility] in which this literary writer already called 1301- Called [facility] for [place] area goes to [facility] [phone] ext [phone]. Called and s/w Gregoria, [facility] fax inquiry to [phone]. Faxed and will F/u for acceptance or denial. MORENA Sanchez Original Note: MORENA Note: Patient stable for DC today. Plan was to DC to SNF but patient now declining SNF and wants to return home with niece at bedside and home health. Lives with Niece Génesis. Address confirmed correct on file. Patient provided an In network C list for [facility] and picked preference: 1. [place] 2. [facility]. Requiring PT/OT/ST/SN for medication reconciliation, VS, Monitor [place] draw/level/ ensuring that patient is getting done and appropriate [place] dose per [facility]. Called [facility] which has merged with different C and states they are not accepting new patients at this time d/t staffing. Called [facility], S/w Rohan and states that they may be able to accept patient but will need patient packet faxed for review. Faxed Packet at this time. MORENA Sanchez
--- NOTE | 2021-04-09 13:03 | PCM.DC.SUM ---
Documented by User: Jania Almaraz NP, TIMING MACHINE OPERATOR-C 04/09/21 13:09 Providers Date of Admission: 04/06/21 Date of Discharge: 04/09/21 Primary Care Physician: Dr. Manolo Brewer DO Reason For Visit: CVA Diagnosis Discharge Diagnosis (1) CVA (cerebral vascular accident): Status: Acute Code(s): I63.9 - Cerebral infarction, unspecified Qualifiers: CVA mechanism: unspecified Qualified Code(s): I63.9 - Cerebral infarction, unspecified (2) Acute alteration in mental status: Status: Acute Code(s): R41.82 - Altered mental status, unspecified Medications at Discharge Home Medications colestipol 1 gm PO BID 05/10/19 aspirin 81 mg PO DAILY@0800 #30 tab.chew 09/24/19 atorvastatin 40 mg PO QHS #30 tab 09/24/19 carvedilol 6.25 mg PO BID #60 tab 09/24/19 lisinopril 10 mg PO DAILY #30 tab 09/24/19 risperidone 8 mg PO QHS 01/13/21 trihexyphenidyl 2 mg PO BID 01/13/21 risperidone 1 mg PO DAILY 04/06/21 lithium carbonate 600 mg PO QHS #30 cap 04/09/21 Hospital Course Operations None Procedures Electroencephalogram Summary of Care Provided Minutes Spent on Discharge: 35 Hospital Course: Patient is a 60-year-old male admitted 04/06/2021 due to slurred speech and altered mental status. 1. Acute metabolic encephalopathy secondary to lithium toxicity-CVA ruled out. EEG unremarkable. MRI of brain without acute ischemia. Echocardiogram with EF 75%. [place] held during admission, repeat level normal. Resume at reduced dose, 600 mg nightly. Mental status now at baseline. Follow-up with PCP in 1 week. Recommend repeat lithium level in 1 week as well. Home with home health/therapies at [facility]. 2. Anxiety/depression/bipolar disorder/schizoaffective disorder, underlying intellectual disability-continue Risperdal, lithium resumed at reduced dose. 3. Hypertension-continue carvedilol, lisinopril. 4. Hyperlipidemia-continue statin. 5. Allergic rhinitis-on Singulair. 6. GERD-continue PPI. 7. Tobacco dependence-encourage cessation. Patient seen and examined prior to discharge. Physical assessment as noted below. Patient is stable for discharge with follow up recommendations as noted above. This patient was seen by JULES Galvan under the supervision of Dr. Carlos. Physical Exam Const alert and no apparent distress Constitutional Narrative: Mental status at baseline. Orientation / Consciousness: awake HEENT normocephalic and moist oral mucous membranes Eyes PERRL, EOMs intact bilaterally and conjunctivae normal Neck no lymphadenopathy Resp normal respiratory effort and clear to auscultation bilaterally Cardio regular rate, regular rhythm and no murmurs Peripheral Pulses: pulses 2+ throughout GI normal to inspection, nondistended, normoactive bowel sounds, non-tender and non-distended Extremity normal to inspection Skin no rashes or lesions noted Lesions: no lesions Rashes: no rashes Trauma: no lacerations or abrasions Neuro CN's II-XII intact bilaterally, no focal motor deficits, no sensory deficits noted and deep tendon reflexes 2+ bilaterally Psych mental status grossly normal and affect normal ABG / Lab / Microbiology Data Result Diagrams: 04/09/21 06:15 04/09/21 06:15 Laboratory: Laboratory Results - last 24 hr 04/09/21 04/09/21 04/09/21 06:15 06:15 06:15 WBC 5.5 RBC 3.89 L Hgb 11.4 L Hct 35.8 L MCV 92.0 MCH 29.3 MCHC 31.8 L RDW Std Deviation 43.6 RDW Coeff of Fernando 13.0 Plt Count 141 L MPV 9.9 Immature Gran % (Auto) 0.400 Neut % (Auto) 47.1 Lymph % (Auto) 43.1 H [place] % (Auto) 6.8 Eos % (Auto) 2.2 Baso % (Auto) 0.4 Absolute Neuts (auto) 2.6 Absolute Lymphs (auto) 2.35 Nucleated RBC % 0 Sodium 140 Potassium 4.0 Chloride 113 H Carbon Dioxide 24.0 Anion Gap 3 L BUN 12 Creatinine 0.91 Estim Creat Clear Calc 87.40 Est GFR (MDRD) Af Amer 109 Est GFR (MDRD) Non-Af 90 BUN/Creatinine Ratio 13.2 Glucose 89 Calcium 8.8 Total Bilirubin 0.80 AST 29 ALT 26 Alkaline Phosphatase 93 Total Protein 6.0 L Albumin 3.1 L Globulin 2.9 Albumin/Globulin Ratio 1.1 Corinth 0.90 D/C Instructions Discharge Diet: - (Pur?ed diet, thin liquids) Call your doctor if you observe: Shortness of breath, Dizziness and Chest pain Meaningful Use Info Meaningful Use Diagnoses (Choose all that apply): None applicable Discharge Plan Admission Admit Date/Time: 04/06/21 16:31 Primary Reason for Your Visit: Altered mental status Attending Provider: Shruthi Carlos Primary Care Provider: Manolo Brewer Discharge Orders/Prescriptions Prescriptions: New lithium carbonate 600 mg capsule 600 mg PO QHS Qty: 30 RF: 0 Continued colestipol 1 tablet 1 gm PO BID RF: 0 lisinopril 10 MG tablet 10 mg PO DAILY Qty: 30 RF: 0 aspirin 81 MG tablet,chewable 81 mg PO DAILY@0800 Qty: 30 RF: 0 atorvastatin 40 MG tablet 40 mg PO QHS Qty: 30 RF: 0 carvedilol 6.25 MG tablet 6.25 mg PO BID Qty: 60 RF: 0 risperidone 4 MG tablet 8 mg PO QHS RF: 0 trihexyphenidyl 2 MG tablet 2 mg PO BID RF: 0 risperidone 1 mg tablet 1 mg PO DAILY RF: 0 Discontinued lithium carbonate 450 mg tablet extended release 900 mg PO QHS RF: 0 Referrals / Follow Up: Manolo Brewer DO [Primary Care Provider] - 04/27/21 9:00 am Disposition Disposition (needs filled in before D/C Order can be placed): Home Health Service Documented by User: Dr. Shruthi Carlos MD 04/10/21 08:08 Providers Date of Admission: 04/06/21 Reason For Visit: CVA Medications at Discharge Home Medications colestipol 1 gm PO BID 05/10/19 aspirin 81 mg PO DAILY@0800 #30 tab.chew 09/24/19 atorvastatin 40 mg PO QHS #30 tab 09/24/19 carvedilol 6.25 mg PO BID #60 tab 09/24/19 lisinopril 10 mg PO DAILY #30 tab 09/24/19 risperidone 8 mg PO QHS 01/13/21 trihexyphenidyl 2 mg PO BID 01/13/21 risperidone 1 mg PO DAILY 04/06/21 lithium carbonate 600 mg PO QHS #30 cap 04/09/21 ABG / Lab / Microbiology Data Result Diagrams: 04/09/21 06:15 04/09/21 06:15 Discharge Plan Admission Admit Date/Time: 04/06/21 16:31 Primary Reason for Your Visit: Altered mental status Attending Provider: Shruthi Carlos Primary Care Provider: Manolo Brewer Discharge Orders/Prescriptions Prescriptions: New lithium carbonate 600 mg capsule 600 mg PO QHS Qty: 30 RF: 0 Continued colestipol 1 tablet 1 gm PO BID RF: 0 lisinopril 10 MG tablet 10 mg PO DAILY Qty: 30 RF: 0 aspirin 81 MG tablet,chewable 81 mg PO DAILY@0800 Qty: 30 RF: 0 atorvastatin 40 MG tablet 40 mg PO QHS Qty: 30 RF: 0 carvedilol 6.25 MG tablet 6.25 mg PO BID Qty: 60 RF: 0 risperidone 4 MG tablet 8 mg PO QHS RF: 0 trihexyphenidyl 2 MG tablet 2 mg PO BID RF: 0 risperidone 1 mg tablet 1 mg PO DAILY RF: 0 Discontinued lithium carbonate 450 mg tablet extended release 900 mg PO QHS RF: 0 Referrals / Follow Up: Manolo Brewer DO [Primary Care Provider] - 04/27/21 9:00 am Disposition Disposition (needs filled in before D/C Order can be placed): Home Health Service Charges/Coding Addendum Addendum: This patient was seen in conjunction with Jania Almaraz. I have independently interviewed and examined the patient and reviewed pertinent historical, laboratory, and other data. I have reviewed her note and concur with her documentation 60-year-old male with multiple comorbidities significant for bipolar disorder/schizophrenia, hypertension who presented with slurred speech and confusion. Patient was agitated earlier in the ED. He was given Geodon. Initial CT of the brain as well as CT of the head and neck was unremarkable for acute abnormality. Patient was admitted to PCU for acute stroke work-up. He underwent MRI of the brain that was unremarkable. His EEG was also unremarkable. 2D echo showed an EF of 75%. No valvular abnormality. Patient had an episode of fall that was unwitnessed. CT of the brain was unremarkable. Patient lithium levels were 1.50. His lithium was held. Repeat testing the next day was 0.90. Patient had periods of intermittent agitation. This improved. He was resumed back on a lower dose of lithium at 600 mg p.o. nightly. It was recommended that he has lithium levels checked within a week. He follows up closely with the counseling center. On the day of discharge. Patient was seen and examined. Denied any new complaints. Physical Exam: Gen: Comfortable, not pale, not jaundiced CVS:HS I +II, regular, no murmurs RESP: CTA GI: BS present and normal, soft, nontender, no palpable organs EXT:No edema Visit Charges Inpatient E&M: 66345 Disch Hosp
--- NOTE | 2021-04-09 13:57 | PHA.DC.MR ---
Pharmacy Service has performed discharge medication reconciliation for this patient. The patient's discharge medication list was reviewed for discrepancies and discrepancies were resolved. Home Medications colestipol 1 gm PO BID 05/10/19 aspirin 81 mg PO DAILY@0800 #30 tab.chew 09/24/19 atorvastatin 40 mg PO QHS #30 tab 09/24/19 carvedilol 6.25 mg PO BID #60 tab 09/24/19 lisinopril 10 mg PO DAILY #30 tab 09/24/19 risperidone 8 mg PO QHS 01/13/21 trihexyphenidyl 2 mg PO BID 01/13/21 risperidone 1 mg PO DAILY 04/06/21 lithium carbonate 600 mg PO QHS #30 cap 04/09/21
--- NOTE | 2021-04-10 10:11 | CASEMGMT ---
RN NEDA followed up on HHC referral made yesterday. TC to Sherrell at [facility], who states they did accept pt for SOC today and they are in touch with the patient. States the paperwork has been received and nothing is needed.
--- NOTE | 2021-04-10 12:56 | CASEMGMT ---
RN NEDA Discharge Follow Up Phone Call: REED: Hakan Strata:3 Call Date: 04/10/21 Discharge Date: 04/09/21 Time of Call:1253 Duration: 3 min Admitting Dx: CVA RN NEDA completed follow up phone call after recent hospitalization. Spoke with pt Génesis ulloa. She states pt is doing very well. States the [facility] nurse will be out today any minute. She denies questions or concerns regarding dc instructions or medications stating it was explained well. Follow up appt with scheduled. Pt laila has no further questions or concerns at this time.
== END 2021-04-09 16:36 | disposition home health service (06) | DRG 816 ==
LOC: ED 17:03 → PCU 17:35
PROVIDERS: Admitting Provider Family Medicine; Emergency Provider Emergency Medicine; PCP Student in an Organized Health Care Education/Training Program; Visit Provider Internal Medicine
DX: T56.891A Toxic effect of other metals, accidental (unintentional), initial encounter (principal); Y92.9 Unspecified place or not applicable; G92 Toxic encephalopathy; G93.41 Metabolic encephalopathy; F25.9 Schizoaffective disorder, unspecified; F31.9 Bipolar disorder, unspecified; I10 Essential (primary) hypertension; R47.81 Slurred speech; J30.9 Allergic rhinitis, unspecified; K21.9 Gastro-esophageal reflux disease without esophagitis; E78.5 Hyperlipidemia, unspecified; F41.9 Anxiety disorder, unspecified; F17.210 Nicotine dependence, cigarettes, uncomplicated; Z79.82 Long term (current) use of aspirin
CPT/HCPCS: 36415; 70450; 70496; 70498; 70551; 71045; 80048; 80053; 80061; 80178; 81001; 82140; 82962; 83036; 83735; 84443; 84484; 85025; 85610; 85730; 92526; 92610; 93005; 93306; 94762; 95819; 97110; 97112; 97163; 97166; 97802; 99251; 99285; 99406; J7030; Q9957; Q9967; A4216; C8929; G0463; J3486; J3490

== ENCOUNTER 2021-09-13 21:31 | Emergency (ER) | payer MEDICAID, SELFPAY ==
[2021-09-13 21:32] VITALS: BP 110/94; PULSE 66; RESP 18; TEMP 36.7; O2SAT 95; BMI 28.0
--- NOTE | 2021-09-13 22:06 | CT_ITS ---
STUDY: CT BRAIN WITHOUT CONTRAST REASON FOR EXAM: Male, 61 years old. Changed mental status RADIATION DOSAGE (If Supplied By Facility): CTDIvol = ( 44.99 ) mGy, DLP = ( 863.60 ) mGycm TECHNIQUE: Transaxial CT imaging of the brain was performed without administration of intravenous contrast material. Individualized dose optimization techniques were used for this CT. COMPARISON: No relevant priors. FINDINGS: Normal soft tissue structures. Normal calvarium. Normal size ventricles and extra-axial spaces for the patient''s age. Normal white matter tracts of the cerebral hemispheres. Normal basal ganglia and thalami. Normal brainstem. Normal cerebellum. There is no intracranial hemorrhage. There are no findings of an acute ischemic infarction. Normal visualized paranasal sinuses. CT/Brain/Head without Contrast IMPRESSION: No acute abnormal intracranial finding. Electronically Signed: Tadeo Myers MD at 23:04 EST Tel , Service support ,
--- NOTE | 2021-09-13 22:07 | EKG12_ITS ---
Test Reason : SYNCOPE Blood Pressure : / mmHG Vent. Rate : 061 BPM Atrial Rate : 061 BPM P-R Int : 166 ms QRS Dur : 126 ms QT Int : 440 ms P-R-T Axes : 081 072 064 degrees QTc Int : 442 ms Normal sinus rhythm Right bundle branch block Abnormal ECG Confirmed by CESAR GUDINO, CHUY ([id number]), assignment editor CATIE BENITEZ ([id number]) on 09/17/2021 10:29:42 AM Referred By: ANGIE Confirmed By:CHUY GUERRERO MD
--- NOTE | 2021-09-13 22:10 | EDS_ITS ---
HPI History of Present Illness Chief Complaint: Alt LOC Informant: patient and family Narrative Narrative: Patient present with episode of weakness and reduced breathing by history. Of note, neither the patient nor the niece who is with him really have any significant idea of his past medical history. They do not know what meds he takes. They do not know if he took his meds today. He states he normally does take his meds but cannot tell me how many or when. There is very little information available because of this. . Evidently the patient was brought over to his sister's house today. He was doing well over there. He had eaten meals several times. He had gone into the kitchen. He had stated that he just did not feel well. His niece states that he seemed to have been wobbling as he walked. She sat him down on the dining table. 911 was called. Shortly after 911 arrived I have a report that the patient had shallow breathing and begin to get somewhat cyanotic. He was given Narcan and he improved. There is no report of taking narcotics. I did do online prescribing report that does not show any prescribed to him. I do not know if he had taken somebody else's meds when he was at their house. He has no specific complaint now. He states he just feels a little tired. I have no report of any focal deficit. I have no report of facial droop or speech changes. He has no recent complaints of illness. PFSH PFSH Medical History Anxiety Bipolar disorder Depression Essential (primary) hypertension Hyperlipidemia Hypertension Schizophrenia Smoker Home Medications colestipol 1 gm PO BID 05/10/19 [History Last Taken 04/06/21] aspirin 81 mg PO DAILY@0800 #30 tab.chew 09/24/19 [Rx Last Taken 04/06/21] atorvastatin 40 mg PO QHS #30 tab 09/24/19 [Rx Last Taken 04/05/21] carvedilol 6.25 mg PO BID #60 tab 09/24/19 [Rx Last Taken 04/06/21] lisinopril 10 mg PO DAILY #30 tab 09/24/19 [Rx Last Taken 04/06/21] risperidone 8 mg PO QHS 01/13/21 [History Last Taken 04/05/21] trihexyphenidyl 2 mg PO BID 01/13/21 [History Last Taken 04/06/21] risperidone 1 mg PO DAILY 04/06/21 [History Last Taken 04/06/21] lithium carbonate 600 mg PO QHS #30 cap 04/09/21 [Rx Last Taken Unknown] Allergy/AdvReac Type Severity Reaction Status Date / Time No Known Allergies Allergy Verified 09/13/21 21:37 Surgical History History of left heart catheterization (09/24/19) Social History household members: other details: Lives in a senior living with other MRDD individuals Smoking Status: Current every day smoker tobacco type: cigarettes alcohol intake: never details: Unknown with regards to alcohol use substance use type: does not use ROS ROS ED Review of Systems ROS Unobtainable: other Details: See history of present illness. Constitutional Constitutional ED: Denies fever(s) or sweats Eyes Eyes: Denies blurry vision, change in vision or diplopia ENT ENT ED: Denies rhinorrhea Cardiovascular Cardiovascular: Denies chest pain or palpitations Respiratory/Chest Respiratory/Chest: Reports cough and other Details: Patient is evidently a very heavy smoker and has a chronic cough but it is not new or different. ; Denies dyspnea Gastrointestinal Gastrointestinal: Denies abdominal pain, diarrhea, nausea or vomiting Genitourinary Genitourinary ED: Denies dysuria Musculoskeletal Musculoskeletal: Denies myalgias Integumentary Denies rash Neurologic Neurologic: Reports other Details: See history of present illness. No reported focal deficit. ; Denies headache(s), paresthesias or weakness Psychiatric Psychiatric: Reports anxiety and depression Endocrine Endocrinology: Denies polydipsia or polyuria Allergic/Immunologic Allergic/Immunologic ED: Denies urticaria EXAM Physical Exam Const Vital Signs: 09/13/21 21:32 09/13/21 21:38 09/13/21 22:45 Temperature 98.1 F Temperature Source Oral Pulse Rate 66 62 Respiratory Rate 18 29 H Respiratory Effort Normal Respiratory Pattern Normal Blood Pressure 110/94 H 96/55 L Blood Pressure Mean 99 68 Pulse Ox 95 99 Oxygen Delivery Method Room Air Room Air 09/13/21 23:11 Temperature Temperature Source Pulse Rate 66 Respiratory Rate 18 Respiratory Effort Respiratory Pattern Blood Pressure 94/58 L Blood Pressure Mean 70 Pulse Ox 100 Oxygen Delivery Method Room Air Positive well nourished and well developed General Appearance ED: well developed and NAD; Negative for cyanotic, diaphoretic or pallor HEENT Reports dry mucous membranes Negative for trauma Mouth ED: Yes dry mucous membranes Mouth: dry mucous membranes Eyes EOMs intact bilaterally Eyes Narrative: Pupils are about 2 mm. They are equal. Range of motion is intact. General Eye ED: Negative for pale conjunctiva or scleral icterus Neck no JVD Chest Wall inspection of chest normal Resp normal respiratory effort and clear to auscultation bilaterally Cardio regular rate and regular rhythm GI normal to inspection, nondistended, normoactive bowel sounds, non-tender, non- distended and no masses Auscultation: normoactive bowel sounds Palpation: soft Back/Spine no CVA tenderness Extremity Extremity Narrative: Significant nicotine staining of right hand fingers. General Extremety ED: Negative for edema or tenderness General Extremity: Negative for edema Neuro oriented x3 Neuro Narrative: Patient is spontaneously awake when I walk in the room. He states he felt weak but does not have any specific complaints or details to add to that. He feels okay now. He states he does not think he took any medicines that were on his own. However he has trouble telling me when he took his meds and does not know what meds he takes. This is evidently normal per the niece. He is acting normally per her. Sensorium / Orientation: alert; Negative for lethargic or stuporous Psych mental status grossly normal Skin no rashes or lesions noted General Skin Exam: Negative for pallor MDM MDM MDM Narrative Medical decision making narrative: Patient CBC, electrolytes, liver function test, urine, lactate, lithium level are all within normal limits. There are no marked abnormalities seen in those. Minimal elevation of glucose. Alcohol level was 9. Tox screen was negative. Tox screen certainly will not excelsior picker all opiates. Patient's been watched here for hours. He has been doing better. We got him up walked around. He feels absolutely fine and at his baseline. Both he and his niece want to go home. I think this is reasonable option. We discussed multitude of reasons that would bring him back. Lab Data Attestation: I reviewed the patient's lab results. Labs: Laboratory Results - last 24 hr 09/13/21 09/13/21 09/13/21 21:20 21:20 22:20 WBC 11.0 RBC 4.59 L Hgb 13.5 Hct 41.0 MCV 89.3 MCH 29.4 MCHC 32.9 RDW Std Deviation 40.6 RDW Coeff of Fernando 12.4 Plt Count 278 MPV 10.4 Immature Gran % (Auto) 0.200 Neut % (Auto) 53.6 Lymph % (Auto) 39.3 [place] % (Auto) 5.5 Eos % (Auto) 1.0 Baso % (Auto) 0.4 Absolute Neuts (auto) 5.9 Absolute Lymphs (auto) 4.33 Nucleated RBC % 0 Sodium 136 Potassium 4.2 Chloride 105 Carbon Dioxide 25.0 Anion Gap 6 BUN 10 Creatinine 1.09 Estim Creat Clear Calc 69.72 Est GFR (MDRD) Af Amer 89 Est GFR (MDRD) Non-Af 73 BUN/Creatinine Ratio 9.2 L Glucose 126 H Lactic Acid Calcium 9.1 Total Bilirubin 0.60 AST 10 L ALT 17 Alkaline Phosphatase 86 Troponin I High Sens 5 Total Protein 7.2 Albumin 3.7 Globulin 3.5 Albumin/Globulin Ratio 1.1 Urine Color Yellow Urine Clarity Sl. Cloudy Urine pH 6.5 Ur Specific [place] 1.015 Urine Protein 100 H Urine Glucose (UA) Normal Urine Ketones Negative Urine Occult Blood Negative Urine Nitrite Negative Urine Bilirubin Negative Urine Urobilinogen Normal Ur Leukocyte Esterase 25 H Urine Opiates Screen Urine Methadone Screen Ur Barbiturates Screen Ur Phencyclidine Scrn Ur Amphetamines Screen U Methamphetamin-MDMA U Benzodiazepines Scrn Hideout Urine Cocaine Screen U Cannabinoids Screen Ur Drug Screen Comment Ethyl Alcohol 09/13/21 09/13/21 09/13/21 22:20 22:28 22:28 WBC RBC Hgb Hct MCV MCH MCHC RDW Std Deviation RDW Coeff of Fernando Plt Count MPV Immature Gran % (Auto) Neut % (Auto) Lymph % (Auto) [place] % (Auto) Eos % (Auto) Baso % (Auto) Absolute Neuts (auto) Absolute Lymphs (auto) Nucleated RBC % Sodium Potassium Chloride Carbon Dioxide Anion Gap BUN Creatinine Estim Creat Clear Calc Est GFR (MDRD) Af Amer Est GFR (MDRD) Non-Af BUN/Creatinine Ratio Glucose Lactic Acid 1.2 Calcium Total Bilirubin AST ALT Alkaline Phosphatase Troponin I High Sens Total Protein Albumin Globulin Albumin/Globulin Ratio Urine Color Urine Clarity Urine pH Ur Specific [place] Urine Protein Urine Glucose (UA) Urine Ketones Urine Occult Blood Urine Nitrite Urine Bilirubin Urine Urobilinogen Ur Leukocyte Esterase Urine Opiates Screen NEGATIVE Urine Methadone Screen NEGATIVE Ur Barbiturates Screen NEGATIVE Ur Phencyclidine Scrn NEGATIVE Ur Amphetamines Screen NEGATIVE U Methamphetamin-MDMA NEGATIVE U Benzodiazepines Scrn NEGATIVE Hideout Urine Cocaine Screen NEGATIVE U Cannabinoids Screen NEGATIVE Ur Drug Screen Comment Ethyl Alcohol 9.0 09/13/21 22:28 WBC RBC Hgb Hct MCV MCH MCHC RDW Std Deviation RDW Coeff of Fernando Plt Count MPV Immature Gran % (Auto) Neut % (Auto) Lymph % (Auto) [place] % (Auto) Eos % (Auto) Baso % (Auto) Absolute Neuts (auto) Absolute Lymphs (auto) Nucleated RBC % Sodium Potassium Chloride Carbon Dioxide Anion Gap BUN Creatinine Estim Creat Clear Calc Est GFR (MDRD) Af Amer Est GFR (MDRD) Non-Af BUN/Creatinine Ratio Glucose Lactic Acid Calcium Total Bilirubin AST ALT Alkaline Phosphatase Troponin I High Sens Total Protein Albumin Globulin Albumin/Globulin Ratio Urine Color Urine Clarity Urine pH Ur Specific [place] Urine Protein Urine Glucose (UA) Urine Ketones Urine Occult Blood Urine Nitrite Urine Bilirubin Urine Urobilinogen Ur Leukocyte Esterase Urine Opiates Screen Urine Methadone Screen Ur Barbiturates Screen Ur Phencyclidine Scrn Ur Amphetamines Screen U Methamphetamin-MDMA U Benzodiazepines Scrn Hideout 0.70 Urine Cocaine Screen U Cannabinoids Screen Ur Drug Screen Comment Ethyl Alcohol Radiography Diagnostic Testing: Clinical Impression(s) from Imaging Studies Brain CT 09/13/21 22:06 IMPRESSION: No acute abnormal intracranial finding. Electronically Signed: Tadeo Myers MD at 23:04 EST Tel , Service support , Chest X-Ray 09/13/21 22:35 IMPRESSION: Scattered pulmonary infiltrates most likely pneumonia. Electronically Signed: Tadeo Myers MD at 22:50 EST Tel , Service support , EKG Initial EKG: Comments: EKG done for near syncopal episode read by me shows normal sinus rhythm overall rate of 61. No ventricular ectopy. No acute ST elevation or depression. There is intraventricular block that is likely right bundle branch block. CO interval is normal. QRS duration is slightly long and QTc is normal. This is similar to several prior EKGs but is a bit slower than his normal. Discharge Plan Triage Chief Complaint: Alt LOC ED Provider: Wild Gusman Dx/Rx/DC Orders Clinical Impression: Episodic lightheadedness Instructions: ED ALOC Prescriptions: No Action colestipol 1 tablet 1 gm PO BID RF: 0 lisinopril 10 MG tablet 10 mg PO DAILY Qty: 30 RF: 0 aspirin 81 MG tablet,chewable 81 mg PO DAILY@0800 Qty: 30 RF: 0 atorvastatin 40 MG tablet 40 mg PO QHS Qty: 30 RF: 0 carvedilol 6.25 MG tablet 6.25 mg PO BID Qty: 60 RF: 0 risperidone 4 MG tablet 8 mg PO QHS RF: 0 trihexyphenidyl 2 MG tablet 2 mg PO BID RF: 0 risperidone 1 mg tablet 1 mg PO DAILY RF: 0 lithium carbonate 600 mg capsule 600 mg PO QHS Qty: 30 RF: 0 Primary Care Provider: Manolo Brewer Referrals: Manolo Brewer DO [Primary Care Provider] - 3-5 Days Disposition Disposition: Home, Self Care
[2021-09-13 22:22] LABS: Absolute Lymphocyte Count 4.33 X10^3/uL (0.83-4.51); Absolute Neutrophil Count 5.9 X10^3/uL (2.0-7.7); Basophil# 0.04 X10^3/uL; Basophil% 0.4 % (0-1); Eosinophil# 0.11 X10^3/uL; Hemoglobin 13.5 g/dL (13.0-16.5); Lymphocyte # 4.33 X10^3/ul (0.83-4.51); Lymphocyte % 39.3 % (19-41); Mean Corp Hgb Conc 32.9 g/dL (32-36); Mean Corpuscular Hgb 29.4 pg (27.0-32.0); Mean Corpuscular Volume 89.3 fL (80-94); Mean Platelet Vol. 10.4 fl (6.2-12.0); Monocyte# 0.61 X10^3/uL; Monocyte% 5.5 % (0-10); NRBC Flagged by Analyzer 0 % (0-5); Neutrophil # 5.91 X10^3/uL (2.7-7.7); Neutrophil % 53.6 % (47-70); Platelet Count 278 K/mm3 (150-450); RBC Distribution Width CV 12.4 % (11.6-14.6); RBC Distribution Width SD 40.6 fl (35.1-43.9); Red Blood Count 4.59 M/mm3 (4.6-6.2)
[2021-09-13 22:26] LABS: Color, Urine Yellow (Yellow); Glucose, Dipstick Normal (Normal); Ketone-Dipstick Negative (Negative); Leukocyte Esterase-Dipstick 25 /ul (Negative); Nitrite-Dipstick Negative (Negative); Occult Blood-Urine Negative /ul (Negative); Protein-Dipstick 100 mg/dl (Negative); Specific Gravity, Urine 1.015 (1.002-1.030); Urine Bilirubin Dipstick Negative (Negative); Urine Clarity Sl. Cloudy (Clear); Urine Urobilinogen Normal (Normal); Urine pH 6.5 (5.0 - 8.0)
[2021-09-13] MEDS: 0.9% Normal Saline 1,000 ML 1000 ML IV (22:26)
--- NOTE | 2021-09-13 22:35 | RAD_ITS ---
STUDY: X-RAY CHEST REASON FOR EXAM: Male, 61 years old. Cough TECHNIQUE: Portable, upright, AP chest radiograph COMPARISON: 04/06/2021 FINDINGS: Scattered right more than left perihilar and infrahilar pulmonary infiltrates. There is no demonstrated pleural abnormality. Normal size heart. Normal mediastinum and michael. Normal visualized pulmonary arteries. Normal visualized aortic arch and descending thoracic aorta. There is no demonstrated abnormality of the visualized soft tissue structures of the upper abdomen. RAD/Chest 1 View (Portable) IMPRESSION: Scattered pulmonary infiltrates most likely pneumonia. Electronically Signed: Tadeo Myers MD at 22:50 EST Tel , Service support ,
[2021-09-13 22:38] LABS: ALB/GLOB Ratio 1.1 RATIO (0.9-2.4); AST(SGOT) 10 U/L (15-37); Alanine Aminotransfer ALT/SGPT 17 U/L (16-61); Albumin, Serum 3.7 g/dL (3.2-5.0); Alkaline Phosphatase 86 U/L (45-117); Anion Gap 6 (5-15); BUN 10 mg/dL (7-18); BUN/Creat Ratio 9.2 RATIO (10-20); Calcium,Total 9.1 mg/dL (8.5-10.1); Chloride 105 mmol/L (98-107); Creatinine, Serum 1.09 mg/dL (0.70-1.30); EST Glomerular Filtration Rate 73 mL/min (>60); Est Glom Filt Rate - Afr Amer 89 mL/min (>60); Estimated Creatinine Clearance 69.72 ml/min; Globulin 3.5 g/dL (2.2-4.2); Glucose 126 mg/dL (74-106); Potassium 4.2 mmol/L (3.5-5.1); Protein, Total 7.2 g/dL (6.4-8.2); Sodium Level 136 mmol/L (136-145); Troponin-I HS 5 pg/mL (3.0-78.0)
[2021-09-13 22:45] VITALS: BP 96/55; PULSE 62; RESP 29; O2SAT 99
[2021-09-13 22:47] LABS: Amphetamine Urine VISTA NEGATIVE (<1000 ng/mL); Barbiturate Urine VISTA NEGATIVE (< 200 ng/mL); Benzodiazepine Urine VISTA NEGATIVE (< 200 ng/mL); Cocaine Urine VISTA NEGATIVE (< 300 ng/mL); Ecstacy Urine VISTA NEGATIVE (< 500 ng/mL); Methadone Urine VISTA NEGATIVE (< 300 ng/mL); PCP Urine VISTA NEGATIVE (< 25 ng/mL); THC Urine VISTA NEGATIVE (< 50 ng/mL); Vista UDS pH Range 6
[2021-09-13 23:07] LABS: Lactic Acid 1.2 mmol/L (0.4-1.9)
[2021-09-13 23:11] VITALS: BP 94/58; PULSE 66; RESP 18; O2SAT 100
[2021-09-14 00:44] VITALS: BP 94/59; PULSE 71; RESP 16; O2SAT 99
== END 2021-09-14 00:45 | disposition home or self-care (01) ==
PROVIDERS: Emergency Provider Emergency Medicine; PCP Student in an Organized Health Care Education/Training Program
DX: R42 Dizziness and giddiness (principal); I45.4 Nonspecific intraventricular block; E78.5 Hyperlipidemia, unspecified; F20.9 Schizophrenia, unspecified; F31.9 Bipolar disorder, unspecified; I10 Essential (primary) hypertension; F17.210 Nicotine dependence, cigarettes, uncomplicated; Z79.82 Long term (current) use of aspirin
CPT/HCPCS: 70450; 71045; 80053; 80178; 80307; 81002; 82077; 83605; 84484; 85025; 93005; 96360; 99285; J7030

== ENCOUNTER 2022-07-29 18:20 | Emergency (ER) | payer MEDICAID, SELFPAY ==
[2022-07-29 18:23] VITALS: BP 121/72; PULSE 93; RESP 17; TEMP 36.8; O2SAT 100; BMI 27.1
--- NOTE | 2022-07-29 20:32 | ED.VIS.GI ---
HPI HPI - GI History of Present Illness Chief Complaint: GI Bleed Narrative Narrative: Patient with past medical history of bipolar disorder, hyperlipidemia, presents with bright red blood per rectum with every bowel movement. He states has been having effect on him for the last month. He states with every bowel movement he has bright red blood and that his stool is dark. He denies any nausea or vomiting. No hematemesis. No abdominal pain. He does not take blood thinners. He states he is intermittently been short of breath. PFSH PFSH Medical History Anxiety Bipolar disorder Depression Essential (primary) hypertension Hyperlipidemia Hypertension Schizophrenia Smoker Home Medications colestipol 1 gram tablet 1 gm PO BID cholesterol 05/10/19 [History Last Taken 04/06/21] aspirin 81 mg chewable tablet 81 mg PO DAILY@0800 ##30 09/24/19 [Rx Last Taken 04/06/21] atorvastatin 40 mg tablet 40 mg PO QHS #30 tabs 09/24/19 [Rx Last Taken 04/05/21] carvedilol 6.25 mg tablet 6.25 mg PO BID #60 tabs 09/24/19 [Rx Last Taken 04/06/21] lisinopril 10 mg tablet 10 mg PO DAILY #30 tabs 09/24/19 [Rx Last Taken 04/06/21] risperidone 4 mg tablet 8 mg PO QHS 01/13/21 [History Last Taken 04/05/21] trihexyphenidyl 2 mg tablet 2 mg PO BID 01/13/21 [History Last Taken 04/06/21] risperidone 1 mg tablet 1 mg PO DAILY 04/06/21 [History Last Taken 04/06/21] lithium carbonate 600 mg capsule 600 mg PO QHS #30 caps 04/09/21 [Rx Last Taken Unknown] Allergy/AdvReac Type Severity Reaction Status Date / Time No Known Allergies Allergy Verified 07/29/22 18:26 Surgical History History of left heart catheterization (09/24/19) Social History household members: other details: Lives in a intermediate with other MRDD individuals Smoking Status: Current every day smoker tobacco type: cigarettes alcohol intake: never details: Unknown with regards to alcohol use substance use type: does not use ROS ROS ED ROS Narrative Constitutional: No fever, no chills. HEENT: No sore throat. No neck pain. No loss of vision. No rhinorrhea. Cardiovascular: No chest pain. No palpitations. No pedal edema. Respiratory: No cough, no shortness of breath. Abdominal: No abdominal pain. No nausea. No vomiting. Dark stool. Bright red blood per rectum with every bowel movement. Genitourinary: No dysuria. No hematuria. Musculoskeletal: No myalgias. No arthralgias. Neurologic: No headaches. No dizziness. No lightheadedness. Skin: No rash. No change in color. Psychiatric: No depression. No anxiety. EXAM Physical Exam Narrative Exam Narrative: Afebrile. Vital signs noted. HEENT: Normocephalic. Atraumatic. PERRL, EOMI. Neck soft and supple. No point tenderness or step off. No subconjunctival pallor. Cardiovascular: Regular rate and rhythm. No murmurs, rubs, or gallops appreciated. Respiratory: No tachypnea. Lungs clear to auscultation bilaterally. Gastrointestinal: Abdomen soft, nontender, with normoactive bowel sounds. No rebound or guarding. Neurological: Awake. Alert. Nonfocal, nonlateralizing. Skin: No rash. Normal color. No pallor. Musculoskeletal: No pedal edema. Full range of motion extremities. Const Vital Signs: 07/29/22 18:23 07/29/22 21:34 07/29/22 22:02 Temperature 98.2 F Temperature Source Temporal Pulse Rate 93 75 Pulse Rate [Lying] 67 Pulse Rate [Sitting (for 1 minute prior to obtaining)] 85 Pulse Rate [Standing (for 1 minute prior to obtaining)] 97 Respiratory Rate 17 16 Blood Pressure 121/72 H 126/103 H Blood Pressure [Lying] 117/83 H Blood Pressure [Sitting (for 1 minute prior to obtaining)] 125/66 H Blood Pressure [Standing (for 1 minute prior to obtaining)] 112/96 H Blood Pressure Mean 88 110 Blood Pressure Mean [Lying] 94 Blood Pressure Mean [Sitting (for 1 minute prior to obtaining)] 85 Blood Pressure Mean [Standing (for 1 minute prior to obtaining)] 101 Pulse Ox 100 99 Oxygen Delivery Method Room Air Room Air MDM MDM MDM Narrative Medical decision making narrative: Comprehensive work-up was pursued. I will check a CBC and CMP along with Hemoccult stool. Orthostatics will be checked additionally. There are no signs of pallor on examination, and I do feel that he may be having rectal bleeding from an internal hemorrhoid. Regardless, it appears stable. His laboratory work is grossly unremarkable with a normal white count of 10.3 and a normal hemoglobin of 14.8. Coagulation studies are negative. BUN is normal at 12 with a creatinine of 1.0. He has normal blood pressure. His rectal examination did show brown stool with questionable dark red blood, however his Hemoccult is negative. At this point in time, I feel he can be discharged safely home to follow-up with his primary care physician and he was referred to Dr. Jacob with gastroenterology to see as needed. Disposition is discharged home in stable condition. Lab Data Attestation: I reviewed the patient's lab results. Labs: Laboratory Results - last 24 hr 07/29/22 07/29/22 07/29/22 21:33 21:33 21:33 WBC 10.3 RBC 4.95 Hgb 14.8 Hct 44.5 MCV 89.9 MCH 29.9 MCHC 33.3 RDW Std Deviation 41.3 RDW Coeff of Fernando 12.5 Plt Count 224 MPV 10.0 Immature Gran % (Auto) 0.300 Neut % (Auto) 59.7 Lymph % (Auto) 34.1 [place] % (Auto) 4.5 Eos % (Auto) 1.1 Baso % (Auto) 0.3 Absolute Neuts (auto) 6.2 Absolute Lymphs (auto) 3.53 Nucleated RBC % 0 PT 14.3 INR 1.1 APTT 27.6 Sodium 139 Potassium 4.2 Chloride 106 Carbon Dioxide 26.0 Anion Gap 7 BUN 12 Creatinine 1.01 Estim Creat Clear Calc 74.31 Est GFR (MDRD) Af Amer 97 Est GFR (MDRD) Non-Af 80 BUN/Creatinine Ratio 11.9 Glucose 88 Calcium 10.0 Total Bilirubin 0.70 AST 15 ALT 24 Alkaline Phosphatase 91 Total Protein 7.8 Albumin 4.3 Globulin 3.5 Albumin/Globulin Ratio 1.2 Discharge Plan Triage Chief Complaint: GI Bleed Other Complaint: Mental Health ED Provider: Giuseppe Sanchez Dx/Rx/DC Orders Clinical Impression: Rectal bleeding, Black stools Instructions: ED Lower GI Bleeding (Stable) Prescriptions: No Action colestipol 1 tablet 1 gm PO BID lisinopril 10 MG tablet 10 mg PO DAILY Qty: 30 0RF aspirin 81 MG tablet,chewable 81 mg PO DAILY@0800 Qty: 30 0RF atorvastatin 40 MG tablet 40 mg PO QHS Qty: 30 0RF carvedilol 6.25 MG tablet 6.25 mg PO BID Qty: 60 0RF risperidone 4 MG tablet 8 mg PO QHS trihexyphenidyl 2 MG tablet 2 mg PO BID risperidone 1 mg tablet 1 mg PO DAILY lithium carbonate 600 mg capsule 600 mg PO QHS Qty: 30 0RF Primary Care Provider: Manolo Brewer Referrals: Manolo Brewer DO [Primary Care Provider] - 1-2 Days if not improving Tra Jacob DO [Med Staff - Active Staff] - As Needed Disposition Disposition: Home, Self Care
[2022-07-29 21:34] VITALS: BP 112/96; BP 117/83; BP 125/66; PULSE 67; PULSE 85; PULSE 97
[2022-07-29 21:48] LABS: Absolute Lymphocyte Count 3.53 X10^3/uL (0.83-4.51); Absolute Neutrophil Count 6.2 X10^3/uL (2.0-7.7); Basophil# 0.03 X10^3/uL; Basophil% 0.3 % (0-1); Eosinophil# 0.11 X10^3/uL; Eosinophils% 1.1 % (0-5); Hematocrit 44.5 % (40-54); Hemoglobin 14.8 g/dL (13.0-16.5); Lymphocyte # 3.53 X10^3/ul (0.83-4.51); Lymphocyte % 34.1 % (19-41); Mean Corp Hgb Conc 33.3 g/dL (32-36); Mean Corpuscular Hgb 29.9 pg (27.0-32.0); Mean Corpuscular Volume 89.9 fL (80-94); Monocyte# 0.47 X10^3/uL; Monocyte% 4.5 % (0-10); NRBC Flagged by Analyzer 0 % (0-5); Neutrophil # 6.17 X10^3/uL (2.7-7.7); Neutrophil % 59.7 % (47-70); Platelet Count 224 K/mm3 (150-450); RBC Distribution Width CV 12.5 % (11.6-14.6); RBC Distribution Width SD 41.3 fl (35.1-43.9); Red Blood Count 4.95 M/mm3 (4.6-6.2); White Blood Count 10.3 K/mm3 (4.4-11.0)
[2022-07-29 21:57] LABS: International Normalized Ratio 1.1; Partial Thromboplast Time 27.6 Seconds (24.1-36.2); Prothrombin Time (Protime)PT. 14.3 SECONDS (11.7-14.9)
[2022-07-29 22:02] VITALS: BP 126/103; PULSE 75; RESP 16; O2SAT 99
[2022-07-29 22:07] LABS: ALB/GLOB Ratio 1.2 RATIO (0.9-2.4); AST(SGOT) 15 U/L (15-37); Alanine Aminotransfer ALT/SGPT 24 U/L (16-61); Albumin, Serum 4.3 g/dL (3.2-5.0); Alkaline Phosphatase 91 U/L (45-117); Anion Gap 7 (5-15); BUN 12 mg/dL (7-18); BUN/Creat Ratio 11.9 RATIO (10-20); Chloride 106 mmol/L (98-107); Creatinine, Serum 1.01 mg/dL (0.70-1.30); EST Glomerular Filtration Rate 80 mL/min (>60); Est Glom Filt Rate - Afr Amer 97 mL/min (>60); Estimated Creatinine Clearance 74.31 ml/min; Globulin 3.5 g/dL (2.2-4.2); Glucose 88 mg/dL (74-106); Potassium 4.2 mmol/L (3.5-5.1); Protein, Total 7.8 g/dL (6.4-8.2); Sodium Level 139 mmol/L (136-145)
[2022-07-29 23:14] VITALS: BP 120/74; PULSE 74; RESP 16; O2SAT 97
== END 2022-07-29 23:15 | disposition home or self-care (01) ==
PROVIDERS: Emergency Provider Emergency Medicine; PCP Student in an Organized Health Care Education/Training Program; Visit Provider Emergency Medicine
DX: K62.5 Hemorrhage of anus and rectum (principal); F20.9 Schizophrenia, unspecified; F31.9 Bipolar disorder, unspecified; E78.5 Hyperlipidemia, unspecified; I10 Essential (primary) hypertension; R06.02 Shortness of breath; F41.9 Anxiety disorder, unspecified
CPT/HCPCS: 80053; 82274; 85025; 85610; 85730; 99285; A4216

== ENCOUNTER 2022-08-08 11:28 | Emergency (ER) | payer MEDICAID, SELFPAY ==
[2022-08-08] VITALS (7 sets, daily range): BP systolic 119–139; BP diastolic 65–78; PULSE 87–104; RESP 16–20; TEMP 36.3–36.7; O2SAT 97–100; BMI 27.3
--- NOTE | 2022-08-08 13:12 | RAD_ITS ---
STUDY: X-RAY CHEST REASON FOR EXAM: Male, 62 years old. Mental health TECHNIQUE: Single AP portable view of the chest. COMPARISON: Comparison is made with prior study dated 09/13/2021. FINDINGS: Hyperinflation. There is evidence of an azygous lobe in the right upper lobe in keeping with normal variant. Scattered calcified granulomas. There is no demonstrated pleural abnormality. Normal size heart. Normal mediastinum and michael. Normal visualized pulmonary arteries. Normal visualized aortic arch and descending thoracic aorta. There are diffuse degenerative changes of the visualized thoracic spine. Normal visualized ribs, clavicles, and shoulders. There is no demonstrated abnormality of the visualized soft tissue structures of the upper abdomen. RAD/Chest 1 View (Portable) IMPRESSION: No acute abnormality is seen. Electronically Signed: Jorge Gore MD at 13:35 EDT ,
[2022-08-08 13:31] LABS: Absolute Lymphocyte Count 2.33 X10^3/uL (0.83-4.51); Absolute Neutrophil Count 5.1 X10^3/uL (2.0-7.7); Basophil# 0.03 X10^3/uL; Basophil% 0.4 % (0-1); Eosinophil# 0.13 X10^3/uL; Eosinophils% 1.6 % (0-5); Hematocrit 44.3 % (40-54); Hemoglobin 14.5 g/dL (13.0-16.5); Lymphocyte # 2.33 X10^3/ul (0.83-4.51); Lymphocyte % 29.1 % (19-41); Mean Corp Hgb Conc 32.7 g/dL (32-36); Mean Corpuscular Hgb 29.6 pg (27.0-32.0); Mean Corpuscular Volume 90.4 fL (80-94); Mean Platelet Vol. 9.5 fl (6.2-12.0); Monocyte# 0.42 X10^3/uL; Monocyte% 5.3 % (0-10); NRBC Flagged by Analyzer 0 % (0-5); Neutrophil # 5.07 X10^3/uL (2.7-7.7); Neutrophil % 63.3 % (47-70); Platelet Count 231 K/mm3 (150-450); RBC Distribution Width SD 43.5 fl (35.1-43.9)
[2022-08-08 13:37] LABS: Anion Gap 5 (5-15); BUN 13 mg/dL (7-18); BUN/Creat Ratio 14.8 RATIO (10-20); Calcium,Total 9.8 mg/dL (8.5-10.1); Chloride 110 mmol/L (98-107); Creatinine, Serum 0.88 mg/dL (0.70-1.30); EST Glomerular Filtration Rate 94 mL/min (>60); Est Glom Filt Rate - Afr Amer 114 mL/min (>60); Estimated Creatinine Clearance 85.28 ml/min; Glucose 103 mg/dL (74-106); Potassium 4.6 mmol/L (3.5-5.1); Sodium Level 140 mmol/L (136-145)
[2022-08-08 13:59] LABS: Amphetamine Urine VISTA NEGATIVE (<1000 ng/mL); Barbiturate Urine VISTA NEGATIVE (< 200 ng/mL); Benzodiazepine Urine VISTA NEGATIVE (< 200 ng/mL); Cocaine Urine VISTA NEGATIVE (< 300 ng/mL); Ecstacy Urine VISTA NEGATIVE (< 500 ng/mL); Methadone Urine VISTA NEGATIVE (< 300 ng/mL); PCP Urine VISTA NEGATIVE (< 25 ng/mL); THC Urine VISTA NEGATIVE (< 50 ng/mL); Vista UDS pH Range 8
--- NOTE | 2022-08-08 14:19 | EX.ED.VIS.PS ---
HPI HPI - Psych History of Present Illness Chief Complaint: Suicidal Narrative Narrative: 62-year-old male with history of bipolar disorder, depression, schizophrenia presenting with suicidal thoughts. He states he has a plan to kill himself by overdosing on his medications. He has not made an attempt currently. He feels if he is discharged he may do this. Patient states that he has not an attempt in the past but has had suicidal thoughts. He sees Ceci from the counseling center and states he has not reached out to her. Patient states that he currently is homeless and his medications are at his family's house. Apparently he had to leave because he was getting aggressive with them. He denies homicidal ideation. [facility] Medical History Anxiety Bipolar disorder Depression Essential (primary) hypertension Hyperlipidemia Hypertension Schizophrenia Smoker Suicidal risk Home Medications colestipol 1 gram tablet 1 gm PO BID cholesterol 05/10/19 [History Last Taken 04/06/21] aspirin 81 mg chewable tablet 81 mg PO DAILY@0800 ##30 09/24/19 [Rx Last Taken 04/06/21] atorvastatin 40 mg tablet 40 mg PO QHS #30 tabs 09/24/19 [Rx Last Taken 04/05/21] carvedilol 6.25 mg tablet 6.25 mg PO BID #60 tabs 09/24/19 [Rx Last Taken 04/06/21] lisinopril 10 mg tablet 10 mg PO DAILY #30 tabs 09/24/19 [Rx Last Taken 04/06/21] risperidone 4 mg tablet 8 mg PO QHS 01/13/21 [History Last Taken 04/05/21] trihexyphenidyl 2 mg tablet 2 mg PO BID 01/13/21 [History Last Taken 04/06/21] risperidone 1 mg tablet 1 mg PO DAILY 04/06/21 [History Last Taken 04/06/21] lithium carbonate 600 mg capsule 600 mg PO QHS #30 caps 04/09/21 [Rx Last Taken Unknown] Allergy/AdvReac Type Severity Reaction Status Date / Time No Known Allergies Allergy Verified 08/08/22 11:30 Surgical History History of left heart catheterization (09/24/19) Social History household members: other details: Lives in a assisted with other MRDD individuals Smoking Status: Current every day smoker tobacco type: cigarettes alcohol intake: never details: Unknown with regards to alcohol use substance use type: does not use ROS ROS ED Constitutional Constitutional ED: Denies chills, fever(s) or sweats Eyes Eyes: Denies blurry vision or change in vision ENT ENT ED: Denies ear pain or sore throat Cardiovascular Cardiovascular: Denies chest pain, palpitations or racing heartbeat Respiratory/Chest Respiratory/Chest: Denies cough, dyspnea or sputum Gastrointestinal Gastrointestinal: Denies abdominal pain, constipation, diarrhea, nausea or vomiting Genitourinary Genitourinary ED: Denies dysuria, hematuria or urinary frequency Musculoskeletal Musculoskeletal: Denies arthralgias, myalgias or neck pain Integumentary Denies abscess, Abrasions or rash Neurologic Neurologic: Denies headache(s), paresthesias or weakness Psychiatric Psychiatric: Reports anxiety, depression, suicidal ideation and suicidal thoughts Endocrine Endocrinology: Denies polydipsia or polyuria EXAM Physical Exam Const Vital Signs: 08/08/22 11:30 Temperature 97.6 F L Temperature Source Temporal Pulse Rate 87 Respiratory Rate 18 Blood Pressure 119/78 Blood Pressure Mean 91 Pulse Ox 100 Oxygen Delivery Method Room Air Positive well nourished and unkempt General Appearance ED: unkempt and NAD; Negative for pallor HEENT Reports moist mucous membranes Eyes PERRL and EOMs intact bilaterally Resp normal respiratory effort and clear to auscultation bilaterally Cardio Rate: regular rate Rhythm: regular rhythm GI non-tender Extremity normal to inspection Neuro Sensorium / Orientation: alert Psych mental status grossly normal, denies hallucinations and denies homicidal ideation Appearance: unkempt Thought Process: No disorganized, No confused and No flight of ideas Thought Content: suicidality, No homicidality, No ideas of reference and No derealization Attention / Concentration: attention grossly intact Memory / Cognition: memory grossly intact Insight: limited Judgement: limited Skin General Skin Exam: Negative for jaundice or pallor MDM MDM MDM Narrative Medical decision making narrative: 62-year-old male presenting with depression and anxiety as well as a history of bipolar disorder, schizophrenia, depression. He states he is currently homeless and out of his medications. He admits to suicidal thoughts with an intent to ingest any medications he can get his hands on. He states he does not have his home meds however. He has been calm and cooperative here. I did medical clearance lab work and his CBC and BMP are unremarkable. Urine drug screen is negative for drugs. EtOH negative. [place] level slightly low at 1.3 with normal cutoff of 1.2 chest x-ray on my interpretation shows no acute cardiopulmonary process and radiologist agree. EKG was performed which shows a sinus rhythm with ventricular to 76 bpm without sign of ischemic change or dysrhythmia as interpreted by myself. I feel the patient is medically clear at this time. Seen by crisis and they feel he would benefit from inpatient care. I do agree. Patient will be transported when a bed and transportation available. Impression: 1. Suicidal ideation 2. Elevated lithium Lab Data Attestation: I reviewed the patient's lab results. Labs: Laboratory Results - last 24 hr 08/08/22 08/08/22 08/08/22 13:14 13:14 13:14 WBC 8.0 RBC 4.90 Hgb 14.5 Hct 44.3 MCV 90.4 MCH 29.6 MCHC 32.7 RDW Std Deviation 43.5 RDW Coeff of Fernando 13.0 Plt Count 231 MPV 9.5 Immature Gran % (Auto) 0.300 Neut % (Auto) 63.3 Lymph % (Auto) 29.1 [place] % (Auto) 5.3 Eos % (Auto) 1.6 Baso % (Auto) 0.4 Absolute Neuts (auto) 5.1 Absolute Lymphs (auto) 2.33 Nucleated RBC % 0 Sodium 140 Potassium 4.6 Chloride 110 H Carbon Dioxide 25.0 Anion Gap 5 BUN 13 Creatinine 0.88 Estim Creat Clear Calc 85.28 Est GFR (MDRD) Af Amer 114 Est GFR (MDRD) Non-Af 94 BUN/Creatinine Ratio 14.8 Glucose 103 Calcium 9.8 Urine Opiates Screen Urine Methadone Screen Ur Barbiturates Screen Ur Phencyclidine Scrn Ur Amphetamines Screen MDMA (Ecstasy) Screen U Benzodiazepines Scrn [place] Urine Cocaine Screen U Cannabinoids Screen Ur Drug Screen Comment Ethyl Alcohol < 3.0 08/08/22 08/08/22 13:14 13:14 WBC RBC Hgb Hct MCV MCH MCHC RDW Std Deviation RDW Coeff of Fernando Plt Count MPV Immature Gran % (Auto) Neut % (Auto) Lymph % (Auto) [place] % (Auto) Eos % (Auto) Baso % (Auto) Absolute Neuts (auto) Absolute Lymphs (auto) Nucleated RBC % Sodium Potassium Chloride Carbon Dioxide Anion Gap BUN Creatinine Estim Creat Clear Calc Est GFR (MDRD) Af Amer Est GFR (MDRD) Non-Af BUN/Creatinine Ratio Glucose Calcium Urine Opiates Screen NEGATIVE Urine Methadone Screen NEGATIVE Ur Barbiturates Screen NEGATIVE Ur Phencyclidine Scrn NEGATIVE Ur Amphetamines Screen NEGATIVE MDMA (Ecstasy) Screen NEGATIVE U Benzodiazepines Scrn NEGATIVE [place] 1.30 H Urine Cocaine Screen NEGATIVE U Cannabinoids Screen NEGATIVE Ur Drug Screen Comment Ethyl Alcohol Radiography Diagnostic Testing: Clinical Impression(s) from Imaging Studies Chest X-Ray 08/08/22 13:12 IMPRESSION: No acute abnormality is seen. Electronically Signed: Jorge Gore MD at 13:35 EDT , Discharge Plan Triage Chief Complaint: Suicidal ED Provider: Fernando Villavicencio Dx/Rx/DC Orders Prescriptions: No Action colestipol 1 tablet 1 gm PO BID lisinopril 10 MG tablet 10 mg PO DAILY Qty: 30 0RF aspirin 81 MG tablet,chewable 81 mg PO DAILY@0800 Qty: 30 0RF atorvastatin 40 MG tablet 40 mg PO QHS Qty: 30 0RF carvedilol 6.25 MG tablet 6.25 mg PO BID Qty: 60 0RF risperidone 4 MG tablet 8 mg PO QHS trihexyphenidyl 2 MG tablet 2 mg PO BID risperidone 1 mg tablet 1 mg PO DAILY lithium carbonate 600 mg capsule 600 mg PO QHS Qty: 30 0RF Primary Care Provider: Manolo Brewer Referrals: Manolo Brewer DO [Primary Care Provider] -
[2022-08-08 14:27] LABS: Alcohol, Blood (Medical)-Serum < 3.0 mg/dL
--- NOTE | 2022-08-08 17:16 | ED.RN ---
update given to daughter, Laura and informed of pt's transfer. awaiting acceptance. [phone].
--- NOTE | 2022-08-08 20:26 | ED.RN ---
THIS RN GAVE UPDATE TO MARIA R OVER THE PHONE AT 2027. MARIA R REQUESTS SHE BE CALLED WHEN PT PICKED UP FOR TRANSPORT. PHONE NUMBER IS [phone].
--- NOTE | 2022-08-08 23:33 | NURSING ---
ACCEPTED TO [facility]. I CALLED OT SET UP TRANSPORT AND WAS TOLD 6:30AM ETA
[2022-08-09] VITALS (7 sets, daily range): BP systolic 132; BP diastolic 76; PULSE 99; RESP 14–18; TEMP 36.4; O2SAT 98
--- NOTE | 2022-08-09 05:54 | ED.RN ---
Report given to Maria Elena FREITAS at [facility].
== END 2022-08-09 06:47 ==
PROVIDERS: Emergency Provider Student in an Organized Health Care Education/Training Program; PCP Student in an Organized Health Care Education/Training Program; Visit Provider Student in an Organized Health Care Education/Training Program
DX: R45.851 Suicidal ideations (principal); F31.9 Bipolar disorder, unspecified; F41.9 Anxiety disorder, unspecified; E78.5 Hyperlipidemia, unspecified; I10 Essential (primary) hypertension
CPT/HCPCS: 71045; 80048; 80178; 80307; 82077; 85025; 87811; 93005; 99285

== ENCOUNTER 2022-08-22 09:06 | Emergency (ER) | payer MEDICAID, SELFPAY ==
[2022-08-22 09:06] VITALS: BP 118/80; PULSE 67; RESP 16; TEMP 36.6; O2SAT 96; BMI 27.4
--- NOTE | 2022-08-22 09:13 | RAD_ITS ---
STUDY: X-RAY CHEST REASON FOR EXAM: Male, 62 years old. cough TECHNIQUE: PA and lateral views of the chest. COMPARISON: 08/08/2022 FINDINGS: The lungs are clear and expanded. There is no demonstrated pleural abnormality. Normal size heart. Normal mediastinum and michael. Normal visualized pulmonary arteries. Normal visualized aortic arch and descending thoracic aorta. Normal visualized thoracic spine. Normal visualized ribs, clavicles, and shoulders. There is no demonstrated abnormality of the visualized soft tissue structures of the upper abdomen. RAD/Chest PA and Lateral IMPRESSION: Normal x-ray examination of the chest. Electronically Signed: Ori Wheeler MD at 9:54 EDT ,
--- NOTE | 2022-08-22 09:13 | EKG12_ITS ---
Test Reason : CP Blood Pressure : / mmHG Vent. Rate : 064 BPM Atrial Rate : 064 BPM P-R Int : 160 ms QRS Dur : 122 ms QT Int : 432 ms P-R-T Axes : 078 055 052 degrees QTc Int : 445 ms Normal sinus rhythm RSR' or QR pattern in V1 suggests right ventricular conduction delay Borderline ECG Confirmed by CESAR GUDINO, CHUY ([id number]), news editor CATIE BENITEZ ([id number]) on 08/26/2022 9:39:22 AM Referred By: TL Confirmed By:CHUY GUERRERO MD
--- NOTE | 2022-08-22 09:14 | ED.VIS.CHEST ---
HPI History of Present Illness Chief Complaint: Chest Pain Informant: patient Onset/Context/Timing Onset: Today Narrative Narrative: Patient presents by EMS from home awakening with chest pressure dyspnea and nausea. He has had pain in his neck prior. This posterior. No traumas. No arm pain or weakness. He states he does not sweat. Coughing for the past week. Denies fevers headaches. Reports COVID vaccinated with boosters he will most recent one no COVID infections in the past. History of hypertension hyperlipidemia, 1 pack/day smoker. No family history of MIs at young age. Reports heart cath years ago without any intervention. Does not follow cardiology. EMS EKG is normal sinus rhythm no acute changes. He is currently symptom-free. Prior Similar Symptoms: Yes CVD Risk Factors: Positive for Hypertension, Hypercholesterolemia and Smoking [facility] Medical History Anxiety Bipolar disorder Depression Essential (primary) hypertension Hyperlipidemia Hypertension Schizophrenia Smoker Suicidal risk Home Medications colestipol 1 gram tablet 1 gm PO BID cholesterol 05/10/19 [History Last Taken 04/06/21] aspirin 81 mg chewable tablet 81 mg PO DAILY@0800 ##30 09/24/19 [Rx Last Taken 04/06/21] atorvastatin 40 mg tablet 40 mg PO QHS #30 tabs 09/24/19 [Rx Last Taken 04/05/21] carvedilol 6.25 mg tablet 6.25 mg PO BID #60 tabs 09/24/19 [Rx Last Taken 04/06/21] lisinopril 10 mg tablet 10 mg PO DAILY #30 tabs 09/24/19 [Rx Last Taken 04/06/21] risperidone 4 mg tablet 8 mg PO QHS 01/13/21 [History Last Taken 04/05/21] trihexyphenidyl 2 mg tablet 2 mg PO BID 01/13/21 [History Last Taken 04/06/21] risperidone 1 mg tablet 1 mg PO DAILY 04/06/21 [History Last Taken 04/06/21] lithium carbonate 600 mg capsule 600 mg PO QHS #30 caps 04/09/21 [Rx Last Taken Unknown] Allergy/AdvReac Type Severity Reaction Status Date / Time No Known Allergies Allergy Verified 08/08/22 11:30 Family History unable to obtain unable to obtain (Patient MRDD w/ schizophrenia/bipolar disorder, unable to give accurate family history.) Surgical History History of left heart catheterization (09/24/19) Social History household members: other details: Lives in a alf with other MRDD individuals Smoking Status: Current every day smoker tobacco type: cigarettes alcohol intake: never details: Unknown with regards to alcohol use substance use type: does not use EXAM Physical Exam Const Vital Signs: 08/22/22 09:06 08/22/22 09:11 08/22/22 09:13 Temperature 97.8 F Temperature Source Oral Pulse Rate 67 Respiratory Rate 16 Respiratory Effort Normal Respiratory Pattern Normal Blood Pressure 118/80 Blood Pressure Mean 92 Pulse Ox 96 Oxygen Delivery Method Room Air Room Air 08/22/22 10:05 08/22/22 11:57 Temperature Temperature Source Pulse Rate 57 L 48 L Respiratory Rate 22 H 16 Respiratory Effort Respiratory Pattern Blood Pressure 121/87 H 122/81 H Blood Pressure Mean 98 Pulse Ox 98 98 Oxygen Delivery Method Room Air Positive well nourished and well developed Constitutional Narrative: Occasional coughing during exam. General Appearance ED: well developed and NAD HEENT Reports moist mucous membranes normocephalic and atraumatic Eyes PERRL, EOMs intact bilaterally and conjunctivae normal General Eye ED: Yes normal appearance of both eyes Neck no lymphadenopathy and supple General: Negative for tenderness Chest Wall Chest: Negative for tenderness Resp normal respiratory effort and normal air movement Effort and Inspection: symmetric chest movement; Negative for respiratory distress Cardio regular rate, regular rhythm and no murmurs Peripheral Pulses: pulses 2+ throughout GI normal to inspection, nondistended, normoactive bowel sounds and non-tender Palpation: Negative for guarding or rebound tenderness present Back/Spine no CVA tenderness and no thoracic nor lumbar tenderness Extremity normal to inspection General Extremety ED: Negative for edema or tenderness General Extremity: Negative for edema Neuro oriented x3 and no sensory deficits noted Sensorium / Orientation: awake and alert Skin no rashes or lesions noted and no wounds MDM MDM MDM Narrative Medical decision making narrative: Patient with transient chest pains this morning. EKG normal. Labs stable troponin x2 negative. Two-view chest x-ray reviewed by myself read by radiologist negative for any acute process. He has tobacco history denies COPD history. Discussed viral bronchitis. He has inhaler at home. He is in no respiratory distress. COVID was negative. He remained symptom-free on reevaluation. He is discharged with outpatient follow-up with return precautions. All questions were answered. Lab Data Attestation: I reviewed the patient's lab results. Labs: Laboratory Results - last 24 hr 08/22/22 08/22/22 08/22/22 08:55 08:55 11:25 WBC 6.9 RBC 5.31 Hgb 15.6 Hct 48.2 MCV 90.8 MCH 29.4 MCHC 32.4 RDW Std Deviation 42.4 RDW Coeff of Fernando 12.7 Plt Count 246 MPV 10.1 Immature Gran % (Auto) 0.100 Neut % (Auto) 45.2 L Lymph % (Auto) 48.0 H [place] % (Auto) 4.7 Eos % (Auto) 1.7 Baso % (Auto) 0.3 Absolute Neuts (auto) 3.1 Absolute Lymphs (auto) 3.29 Nucleated RBC % 0 Sodium 140 Potassium 4.0 Chloride 107 Carbon Dioxide 26.0 Anion Gap 7 BUN 9 Creatinine 1.10 Estim Creat Clear Calc 68.23 Est GFR (MDRD) Af Amer 88 Est GFR (MDRD) Non-Af 72 BUN/Creatinine Ratio 8.2 L Glucose 130 H Calcium 9.7 Troponin I High Sens 6 5 Radiography Diagnostic Testing: Clinical Impression(s) from Imaging Studies Chest X-Ray 08/22/22 09:13 IMPRESSION: Normal x-ray examination of the chest. Electronically Signed: Ori Wheeler MD at 9:54 EDT , EKG Initial EKG: Attestation: I personally reviewed and interpreted this EKG as follows: Comments: Sinus rate of 64, no ST or T wave changes. Discharge Plan Triage Chief Complaint: Chest Pain ED Provider: Shaun Curiel Dx/Rx/DC Orders Clinical Impression: Chest pain, Acute bronchitis, Tobacco dependence Instructions: ED Bronchitis, No Antibiotic (Adult), Chest Pain [facility] Prescriptions: No Action colestipol 1 tablet 1 gm PO BID lisinopril 10 MG tablet 10 mg PO DAILY Qty: 30 0RF aspirin 81 MG tablet,chewable 81 mg PO DAILY@0800 Qty: 30 0RF atorvastatin 40 MG tablet 40 mg PO QHS Qty: 30 0RF carvedilol 6.25 MG tablet 6.25 mg PO BID Qty: 60 0RF risperidone 4 MG tablet 8 mg PO QHS trihexyphenidyl 2 MG tablet 2 mg PO BID risperidone 1 mg tablet 1 mg PO DAILY lithium carbonate 600 mg capsule 600 mg PO QHS Qty: 30 0RF Primary Care Provider: Manolo Brewer Referrals: Manolo Brewer DO [Primary Care Provider] - 5-7 Days Activity Restrictions/Additional Instructions: Cardiac work-up negative. Chest x-ray negative for any pneumonia. COVID-negative. Continue your home inhaler [place]ail[place] as needed for wheezing. Monitor symptoms. Quit smoking. Follow-up with your doctor. Disposition Disposition: Home, Self Care Discharge Date/Time: 08/22/22 11:57
[2022-08-22 09:23] LABS: Absolute Lymphocyte Count 3.29 X10^3/uL (0.83-4.51); Absolute Neutrophil Count 3.1 X10^3/uL (2.0-7.7); Basophil# 0.02 X10^3/uL; Basophil% 0.3 % (0-1); Eosinophil# 0.12 X10^3/uL; Eosinophils% 1.7 % (0-5); Hematocrit 48.2 % (40-54); Hemoglobin 15.6 g/dL (13.0-16.5); Lymphocyte # 3.29 X10^3/ul (0.83-4.51); Mean Corp Hgb Conc 32.4 g/dL (32-36); Mean Corpuscular Hgb 29.4 pg (27.0-32.0); Mean Corpuscular Volume 90.8 fL (80-94); Mean Platelet Vol. 10.1 fl (6.2-12.0); Monocyte# 0.32 X10^3/uL; Monocyte% 4.7 % (0-10); NRBC Flagged by Analyzer 0 % (0-5); Neutrophil % 45.2 % (47-70); Platelet Count 246 K/mm3 (150-450); RBC Distribution Width CV 12.7 % (11.6-14.6); RBC Distribution Width SD 42.4 fl (35.1-43.9); Red Blood Count 5.31 M/mm3 (4.6-6.2); White Blood Count 6.9 K/mm3 (4.4-11.0)
[2022-08-22 09:38] LABS: Anion Gap 7 (5-15); BUN 9 mg/dL (7-18); BUN/Creat Ratio 8.2 RATIO (10-20); Calcium,Total 9.7 mg/dL (8.5-10.1); Chloride 107 mmol/L (98-107); EST Glomerular Filtration Rate 72 mL/min (>60); Est Glom Filt Rate - Afr Amer 88 mL/min (>60); Estimated Creatinine Clearance 68.23 ml/min; Glucose 130 mg/dL (74-106); Sodium Level 140 mmol/L (136-145); Troponin-I HS (w/2H Reflex) 6 pg/mL (3.0-78.0)
[2022-08-22 10:05] VITALS: BP 121/87; PULSE 57; RESP 22; O2SAT 98
[2022-08-22 11:18] LABS: Reflex Troponin-HS? (from REC) Y
[2022-08-22 11:45] LABS: Troponin-I HS 5 pg/mL (3.0-78.0)
[2022-08-22 11:57] VITALS: BP 122/81; PULSE 48; RESP 16; O2SAT 98
== END 2022-08-22 11:57 | disposition home or self-care (01) ==
PROVIDERS: Emergency Provider Emergency Medicine; PCP Student in an Organized Health Care Education/Training Program; Visit Provider Emergency Medicine
DX: J20.9 Acute bronchitis, unspecified (principal); R07.9 Chest pain, unspecified; E78.5 Hyperlipidemia, unspecified; I10 Essential (primary) hypertension; R11.0 Nausea; F17.210 Nicotine dependence, cigarettes, uncomplicated
CPT/HCPCS: 36415; 71046; 80048; 84484; 85025; 87811; 93005; 99285; A4216

== ENCOUNTER 2022-08-25 15:20 | Observation (INO) | payer MEDICAID, SELFPAY ==
[2022-08-25 15:21] VITALS: BP 122/84; PULSE 60; RESP 18; TEMP 36.6; O2SAT 99; BMI 26.6
--- NOTE | 2022-08-25 15:48 | CT_ITS ---
STUDY: CT BRAIN WITHOUT CONTRAST REASON FOR EXAM: Male, 62 years old. Change in Mental Status RADIATION DOSAGE (If Supplied By Facility): CTDIvol = ( 44.99 ) mGy, DLP = ( 779.24 ) mGycm TECHNIQUE: Transaxial CT imaging of the brain was performed without administration of intravenous contrast material. Individualized dose optimization techniques were used for this CT. COMPARISON: No 09/13/2021 FINDINGS: Normal soft tissue structures. Normal calvarium. Mild cortical atrophy and periventricular white matter ischemic change.. Normal basal ganglia and thalami. Normal brainstem. Normal cerebellum. There is no intracranial hemorrhage. There are no findings of an acute ischemic infarction. There is moderate mucosal thickening of the maxillary sinuses bilaterally and left ethmoid air cells. CT/Brain/Head without Contrast IMPRESSION: Mild cortical atrophy and periventricular white matter ischemic change. No acute bleed. If concern for acute infarct MRI recommended Electronically Signed: Mode Ang MD at 16:47 EDT ,
--- NOTE | 2022-08-25 15:48 | EKG12_ITS ---
Test Reason : AMS Blood Pressure : / mmHG Vent. Rate : 062 BPM Atrial Rate : 062 BPM P-R Int : 162 ms QRS Dur : 128 ms QT Int : 436 ms P-R-T Axes : 069 059 046 degrees QTc Int : 442 ms Normal sinus rhythm Right bundle branch block Cannot rule out Inferior infarct , age undetermined Abnormal ECG Confirmed by JAVIER GUDINO, WILFRED ([id number]), general expeditor CATIE BENITEZ ([id number]) on 08/26/2022 9:52:47 AM Referred By: Confirmed By:WILFRED HERRERA MD
--- NOTE | 2022-08-25 15:48 | EX.ED.DYSGE1 ---
HPI History of Present Illness Chief Complaint: Alt LOC Narrative Narrative: 62-year-old male presents with family out of concern for confusion. Family states that he has been confused progressively for a very long time and states that its been over the years. Patient has been progressively worse over the last couple of weeks. Family request placement into a nursing facility or psychiatric facility because they cannot manage him at home. Today he left the house at about 1130 and walked into the [facility] and was gone for 3 or 4 hours. They tried to call him but he did not know where he was. Initially he had told him he was at [facility] but they searched for him he was not there. Eventually he came out of the [facility] and they found him. He did not appear to have any signs of injury. They report to me that he does not drink alcohol or do drugs. He has been able to ambulate. Family does state that he has been a little bit agitated and aggressive recently but is not homicidal. He is not suicidal. He does have a history of schizophrenia and bipolar disorder. Previously he had been admitted because he was on lithium and had lithium toxicity and had some similar confusion. Family reports that they do not give him lithium anymore and he has not had any access to any. [facility] Medical History Anxiety Bipolar disorder Depression Essential (primary) hypertension Hyperlipidemia Hypertension Schizophrenia Smoker Suicidal risk Home Medications colestipol 1 gram tablet 1 gm PO BID cholesterol 05/10/19 [History Last Taken 04/06/21] aspirin 81 mg chewable tablet 81 mg PO DAILY@0800 ##30 09/24/19 [Rx Last Taken 04/06/21] atorvastatin 40 mg tablet 40 mg PO QHS #30 tabs 09/24/19 [Rx Last Taken 04/05/21] carvedilol 6.25 mg tablet 6.25 mg PO BID #60 tabs 09/24/19 [Rx Last Taken 04/06/21] lisinopril 10 mg tablet 10 mg PO DAILY #30 tabs 09/24/19 [Rx Last Taken 04/06/21] risperidone 4 mg tablet 8 mg PO QHS 01/13/21 [History Last Taken 04/05/21] trihexyphenidyl 2 mg tablet 2 mg PO BID 01/13/21 [History Last Taken 04/06/21] risperidone 1 mg tablet 1 mg PO DAILY 04/06/21 [History Last Taken 04/06/21] lithium carbonate 600 mg capsule 600 mg PO QHS #30 caps 04/09/21 [Rx Last Taken Unknown] gabapentin 100 mg capsule 100 mg PO TID 08/25/22 [History Last Taken Unknown] ziprasidone HCl 20 mg capsule 20 mg PO DAILY 08/25/22 [History Last Taken Unknown] Allergy/AdvReac Type Severity Reaction Status Date / Time No Known Allergies Allergy Verified 08/25/22 15:20 Surgical History History of left heart catheterization (09/24/19) Social History household members: other details: Lives in a residential with other MRDD individuals Smoking Status: Current every day smoker tobacco type: cigarettes alcohol intake: never details: Unknown with regards to alcohol use substance use type: does not use ROS ROS ED Constitutional Constitutional ED: Denies fever(s) Eyes Eyes: Denies blurry vision or change in vision ENT ENT ED: Denies rhinorrhea Cardiovascular Cardiovascular: Denies chest pain Respiratory/Chest Respiratory/Chest: Reports cough; Denies dyspnea Gastrointestinal Gastrointestinal: Denies abdominal pain, nausea or vomiting Genitourinary Genitourinary ED: Denies dysuria or hematuria Musculoskeletal Musculoskeletal: Denies arthralgias, back pain or neck pain Integumentary Denies abscess or rash Neurologic Neurologic: Denies headache(s) or paresthesias Psychiatric Psychiatric: Denies anxiety, suicidal ideation or suicidal thoughts EXAM Physical Exam Const Vital Signs: 08/25/22 15:21 08/25/22 15:25 08/25/22 18:17 Temperature 97.8 F Temperature Source Temporal Pulse Rate 60 55 L Respiratory Rate 18 20 H Respiratory Effort Normal Respiratory Pattern Normal Blood Pressure 122/84 H Blood Pressure Mean 96 Pulse Ox 99 98 Oxygen Delivery Method Room Air Room Air Positive well nourished General Appearance ED: NAD; Negative for pallor HEENT Reports moist mucous membranes Negative for trauma Eyes PERRL and EOMs intact bilaterally General Eye ED: Negative for pale conjunctiva or scleral icterus Neck General: Negative for tenderness Resp normal respiratory effort Cardio regular rate and regular rhythm GI normal to inspection, nondistended, normoactive bowel sounds Extremity normal to inspection Neuro CN's II-XII intact bilaterally and no sensory deficits noted Sensorium / Orientation: alert Motor Exam: strength 5/5 throughout Psych Mood & Affect: Negative for anxious or tearful Skin no rashes or lesions noted and no wounds General Skin Exam: Negative for jaundice or pallor MDM MDM MDM Narrative Medical decision making narrative: Patient with history of dementia, schizophrenia, bipolar disorder with increasing confusion over the years however worsening over the last couple of weeks. Patient was found after at least 3 to 4 hours of being alone in the card[place]. Family reports that he is more confused and wants him placed. No signs of trauma on examination. Patient has no complaints. EKG was obtained and on my interpretation shows normal sinus rhythm with ventricular rate of 62 bpm without sign of ischemic change. Right bundle branch block noted. CBC, CMP unremarkable. Urine drug screen negative. EtOH normal. CT brain within normal limits and no acute findings found. [place] 1.0. The patient's family states he is no longer taking this. This is not elevated however. Urinalysis negative for infection. Rapid COVID-negative I do not believe the patient needs a geriatric psychiatric facility. I spoke with the hospitalist who agrees. He will be admitted for placement in a nursing facility as the family cannot care for him. Family is amenable to this. Impression: 1. History of dementia 2. Confusion Lab Data Labs: Laboratory Results - last 24 hr 08/25/22 08/25/22 08/25/22 15:55 15:55 15:55 WBC 7.5 RBC 4.86 Hgb 14.1 Hct 42.7 MCV 87.9 MCH 29.0 MCHC 33.0 RDW Std Deviation 39.2 RDW Coeff of Fernando 12.3 Plt Count 235 MPV 10.2 Immature Gran % (Auto) 0.100 Neut % (Auto) 53.0 Lymph % (Auto) 41.4 H Esmeralda % (Auto) 4.6 Eos % (Auto) 0.8 Baso % (Auto) 0.1 Absolute Neuts (auto) 4.0 Absolute Lymphs (auto) 3.12 Nucleated RBC % 0 Sodium 141 Potassium 3.7 Chloride 108 H Carbon Dioxide 28.0 Anion Gap 5 BUN 10 Creatinine 1.12 Estim Creat Clear Calc 67.01 Est GFR (MDRD) Af Amer 86 Est GFR (MDRD) Non-Af 71 BUN/Creatinine Ratio 8.9 L Glucose 134 H Calcium 9.4 Total Bilirubin 0.90 AST 13 L ALT 24 Alkaline Phosphatase 101 Total Protein 7.3 Albumin 3.9 Globulin 3.4 Albumin/Globulin Ratio 1.1 Urine Color Urine Clarity Urine pH Ur Specific [place] Urine Protein Urine Glucose (UA) Urine Ketones Urine Occult Blood Urine Nitrite Urine Bilirubin Urine Urobilinogen Ur Leukocyte Esterase Urine RBC Urine WBC Ur Squamous Epith Cells Urine Bacteria Hyaline Casts Urine Mucus Urine Opiates Screen Urine Methadone Screen Ur Barbiturates Screen Ur Phencyclidine Scrn Ur Amphetamines Screen MDMA (Ecstasy) Screen U Benzodiazepines Scrn [place] Urine Cocaine Screen U Cannabinoids Screen Ur Drug Screen Comment Ethyl Alcohol < 3.0 08/25/22 08/25/22 08/25/22 15:55 16:05 16:05 WBC RBC Hgb Hct MCV MCH MCHC RDW Std Deviation RDW Coeff of Fernando Plt Count MPV Immature Gran % (Auto) Neut % (Auto) Lymph % (Auto) Esmeralda % (Auto) Eos % (Auto) Baso % (Auto) Absolute Neuts (auto) Absolute Lymphs (auto) Nucleated RBC % Sodium Potassium Chloride Carbon Dioxide Anion Gap BUN Creatinine Estim Creat Clear Calc Est GFR (MDRD) Af Amer Est GFR (MDRD) Non-Af BUN/Creatinine Ratio Glucose Calcium Total Bilirubin AST ALT Alkaline Phosphatase Total Protein Albumin Globulin Albumin/Globulin Ratio Urine Color Yellow Urine Clarity Clear Urine pH 5.0 Ur Specific [place] 1.025 Urine Protein 500 H Urine Glucose (UA) 50 H Urine Ketones Negative Urine Occult Blood Negative Urine Nitrite Negative Urine Bilirubin Negative Urine Urobilinogen Normal Ur Leukocyte Esterase Negative Urine RBC 0 SEEN Urine WBC 0 SEEN Ur Squamous Epith Cells 0 SEEN Urine Bacteria 0 SEEN Hyaline Casts 5-10 SEEN Urine Mucus 0 SEEN Urine Opiates Screen NEGATIVE Urine Methadone Screen NEGATIVE Ur Barbiturates Screen NEGATIVE Ur Phencyclidine Scrn NEGATIVE Ur Amphetamines Screen NEGATIVE MDMA (Ecstasy) Screen NEGATIVE U Benzodiazepines Scrn NEGATIVE [place] 1.00 Urine Cocaine Screen NEGATIVE U Cannabinoids Screen NEGATIVE Ur Drug Screen Comment Ethyl Alcohol Radiography Diagnostic Testing: Clinical Impression(s) from Imaging Studies Brain CT 08/25/22 15:48 IMPRESSION: Mild cortical atrophy and periventricular white matter ischemic change. No acute bleed. If concern for acute infarct MRI recommended Electronically Signed: Mode Ang MD at 16:47 EDT , Discharge Plan Triage Chief Complaint: Alt LOC ED Provider: Fernando Villavicencio Dx/Rx/DC Orders Prescriptions: No Action colestipol 1 tablet 1 gm PO BID lisinopril 10 MG tablet 10 mg PO DAILY Qty: 30 0RF aspirin 81 MG tablet,chewable 81 mg PO DAILY@0800 Qty: 30 0RF atorvastatin 40 MG tablet 40 mg PO QHS Qty: 30 0RF carvedilol 6.25 MG tablet 6.25 mg PO BID Qty: 60 0RF risperidone 4 MG tablet 8 mg PO QHS trihexyphenidyl 2 MG tablet 2 mg PO BID risperidone 1 mg tablet 1 mg PO DAILY lithium carbonate 600 mg capsule 600 mg PO QHS Qty: 30 0RF ziprasidone HCl 20 mg capsule 20 mg PO DAILY gabapentin 100 mg capsule 100 mg PO TID Primary Care Provider: Manolo Brewer Referrals: Manolo Brewer DO [Primary Care Provider] -
[2022-08-25 16:20] LABS: Bacteria 0 SEEN /hpf (None Seen); Mucous, Urine 0 SEEN /hpf (<or=2+); Red Blood Cells-Urine 0 SEEN /hpf (0-5); Squamous Epithelial Cells - UA 0 SEEN /hpf (0-5); White Blood Cells 0 SEEN /hpf (0-5)
[2022-08-25 16:21] LABS: Absolute Lymphocyte Count 3.12 X10^3/uL (0.83-4.51); Basophil# 0.01 X10^3/uL; Basophil% 0.1 % (0-1); Eosinophil# 0.06 X10^3/uL; Eosinophils% 0.8 % (0-5); Hematocrit 42.7 % (40-54); Hemoglobin 14.1 g/dL (13.0-16.5); Lymphocyte # 3.12 X10^3/ul (0.83-4.51); Lymphocyte % 41.4 % (19-41); Mean Corpuscular Volume 87.9 fL (80-94); Mean Platelet Vol. 10.2 fl (6.2-12.0); Monocyte# 0.35 X10^3/uL; Monocyte% 4.6 % (0-10); NRBC Flagged by Analyzer 0 % (0-5); Neutrophil # 3.99 X10^3/uL (2.7-7.7); Platelet Count 235 K/mm3 (150-450); RBC Distribution Width CV 12.3 % (11.6-14.6); RBC Distribution Width SD 39.2 fl (35.1-43.9); Red Blood Count 4.86 M/mm3 (4.6-6.2); White Blood Count 7.5 K/mm3 (4.4-11.0)
[2022-08-25 16:37] LABS: Amphetamine Urine VISTA NEGATIVE (<1000 ng/mL); Barbiturate Urine VISTA NEGATIVE (< 200 ng/mL); Benzodiazepine Urine VISTA NEGATIVE (< 200 ng/mL); Cocaine Urine VISTA NEGATIVE (< 300 ng/mL); Ecstacy Urine VISTA NEGATIVE (< 500 ng/mL); Methadone Urine VISTA NEGATIVE (< 300 ng/mL); PCP Urine VISTA NEGATIVE (< 25 ng/mL); THC Urine VISTA NEGATIVE (< 50 ng/mL); Vista UDS pH Range 6
[2022-08-25 16:40] LABS: Color, Urine Yellow (Yellow); Glucose, Dipstick 50 mg/dl (Normal); Ketone-Dipstick Negative (Negative); Leukocyte Esterase-Dipstick Negative /ul (Negative); Nitrite-Dipstick Negative (Negative); Occult Blood-Urine Negative /ul (Negative); Protein-Dipstick 500 mg/dl (Negative); Specific Gravity, Urine 1.025 (1.002-1.030); Urine Bilirubin Dipstick Negative (Negative); Urine Clarity Clear (Clear); Urine Urobilinogen Normal (Normal)
[2022-08-25 16:47] LABS: ALB/GLOB Ratio 1.1 RATIO (0.9-2.4); AST(SGOT) 13 U/L (15-37); Alanine Aminotransfer ALT/SGPT 24 U/L (16-61); Albumin, Serum 3.9 g/dL (3.2-5.0); Alkaline Phosphatase 101 U/L (45-117); Anion Gap 5 (5-15); BUN 10 mg/dL (7-18); BUN/Creat Ratio 8.9 RATIO (10-20); Calcium,Total 9.4 mg/dL (8.5-10.1); Chloride 108 mmol/L (98-107); Creatinine, Serum 1.12 mg/dL (0.70-1.30); EST Glomerular Filtration Rate 71 mL/min (>60); Est Glom Filt Rate - Afr Amer 86 mL/min (>60); Estimated Creatinine Clearance 67.01 ml/min; Globulin 3.4 g/dL (2.2-4.2); Glucose 134 mg/dL (74-106); Potassium 3.7 mmol/L (3.5-5.1); Protein, Total 7.3 g/dL (6.4-8.2); Sodium Level 141 mmol/L (136-145)
[2022-08-25 17:03] LABS: Hyaline Cast 5-10 SEEN /lpf (0-5)
[2022-08-25 17:05] LABS: Alcohol, Blood (Medical)-Serum < 3.0 mg/dL
[2022-08-25 18:17] VITALS: PULSE 55; RESP 20; O2SAT 98
[2022-08-25 19:03] VITALS: BP 135/78; PULSE 58; RESP 16; TEMP 37.2; O2SAT 99
--- NOTE | 2022-08-25 19:55 | HP.PCM.HOS_ITS ---
[facility] - General General Date of Admission: 08/25/22 Date of Service: 08/25/22 Chief Complaint: Patient wandering in the [place], last for few hours. Worsening dementia. HPI Narrative CLOVIS PAUL, is a 62 M with history of schizophrenia and bipolar disorder and dementia well brought by EMS escort for after he was lost for few hours. As per patient's adopted daughter who is main caregiver in room, he left home without telling, wandering in the card[place] for few hours and then returned. He called a family member through phone and told him that he was in [facility] but he returned home after few hours. In the meantime EMS was called. As per EMS, he was altered mental status, with AAOx3 could not tell place time and event. GCS was 13. He was staring at the people during conversation and unaware of surroundings. Patient denies any physical complaints to EMS. There was negative stroke scale. Vitals in normal limits. Blood glucose normal. In ED,Vitals in normal limit. When I saw the patient she was alert awake and oriented x3. He can tell me his name place and person. ED physician wants to admit for evaluation by foster care social worker as he might need home health care. Patient has history of schizophrenia and bipolar disorder. Patient denies history of stroke but he has left-sided facial droop and CVM insulin problem list. He was on lithium which was taken off recently few weeks ago. [place] level is still in normal limit. His mental status is progressively deteriorating, memory and recall/dementia for last several months. Her daughter cannot manage at home alone but patient does not want to go to senior care. Patient does not have problem in ambulation and denies any recent fall. Labs reviewed and was unremarkable. [place] level 1.0 probably still in system even though he discontinued few weeks ago due to zero pharmacokinetics. Family history: As per adopted daughter present in room, patient first-degree family relative did not had schizophrenia and bipolar early onset dementia. [facility] Medical History Anxiety Bipolar disorder Depression Essential (primary) hypertension Hyperlipidemia Hypertension Schizophrenia Smoker Suicidal risk Home Medications colestipol 1 gram tablet 1 gm PO BID cholesterol 05/10/19 [History Last Taken 04/06/21] aspirin 81 mg chewable tablet 81 mg PO DAILY@0800 ##30 09/24/19 [Rx Last Taken 04/06/21] atorvastatin 40 mg tablet 40 mg PO QHS #30 tabs 09/24/19 [Rx Last Taken 04/05/21] carvedilol 6.25 mg tablet 6.25 mg PO BID #60 tabs 09/24/19 [Rx Last Taken 04/06/21] lisinopril 10 mg tablet 10 mg PO DAILY #30 tabs 09/24/19 [Rx Last Taken 04/06/21] risperidone 4 mg tablet 8 mg PO QHS 01/13/21 [History Last Taken 04/05/21] trihexyphenidyl 2 mg tablet 2 mg PO BID 01/13/21 [History Last Taken 04/06/21] risperidone 1 mg tablet 1 mg PO DAILY 04/06/21 [History Last Taken 04/06/21] lithium carbonate 600 mg capsule 600 mg PO QHS #30 caps 04/09/21 [Rx Last Taken Unknown] gabapentin 100 mg capsule 100 mg PO TID 08/25/22 [History Last Taken Unknown] ziprasidone HCl 20 mg capsule 20 mg PO DAILY 08/25/22 [History Last Taken Unknown] Allergy/AdvReac Type Severity Reaction Status Date / Time No Known Allergies Allergy Verified 08/25/22 15:20 Surgical History History of left heart catheterization (09/24/19) Social History household members: other details: Lives in a residential with other MRDD individuals Smoking Status: Current every day smoker tobacco type: cigarettes alcohol intake: never details: Unknown with regards to alcohol use substance use type: does not use ROS ROS Narrative Complete 14 ROS unobtainable as patient has dementia and bipolar and schizophrenia. Most part of the ROS contributory patient is adopted Dr. Meeks in the patient's room. Patient denies burning micturition or increased frequency. He has chronic urge ncy and cannot hold urine for long time. Had melena and black tarry stool about a month ago he came to ED. From ED note seems patient was discharged home and advised to follow-up with Dr. Jacob for colonoscopy. He did not had colonoscopy yet. Mild chronic cough since pneumonia, getting better. Patient also had bronchitisand pneumonia. Completed antibiotic about 2 to 3 weeks ago in psychiatric facility where he was admitted for exacerbation of his schizophrenia/bipolar disorder Denies abdominal pain fever or URI symptoms. Review of Systems ROS Unobtainable: due to mental condition Vital Signs Vital Signs Vital Signs: 08/25/22 15:21 08/25/22 15:25 08/25/22 18:17 Temperature 97.8 F Temperature Source Temporal Pulse Rate 60 55 L Respiratory Rate 18 20 H Respiratory Effort Normal Respiratory Pattern Normal Blood Pressure 122/84 H Blood Pressure Mean 96 Pulse Ox 99 98 Oxygen Delivery Method Room Air Room Air 08/25/22 19:03 Temperature 98.9 F Temperature Source Temporal Pulse Rate 58 L Respiratory Rate 16 Respiratory Effort Respiratory Pattern Blood Pressure 135/78 H Blood Pressure Mean 97 Pulse Ox 99 Oxygen Delivery Method Room Air Weight Weight: 175 lb Body Mass Index (BMI) 26.6 Physical Exam Narrative General: Alert, Oriented x3, Cooperative. Patient aware of the event and he said he went to the [place] and got lost as he was frustrated and wanted to go out HEENT: Atraumatic, PERRLA, EOMI, Normocephalic Oral: Oral mucosa dry. No Gingival or Mucosal Lesions/ Ulcerations Neck: Supple, No JVD, Negative Carotid Bruits Lungs: Air entry diminished in bilateral lung bases. No crepitation/rhonchi Cardiovascular: Regular rate, Regular Rhythm, Normal S1, Normal S2, No murmurs Abdomen: Bowel Sounds Present, Soft, Non Tender, Non-Distended : No renal angle tenderness. No suprapubic tenderness. Extremities: No edema, Capillary Refill Less than 3 Seconds Skin: No rashes, No breakdown Musculoskeletal: No Tenderness to Palpation of Joints or Extremities. Muscle strength 5/5 at major joints. ROM full. Neurological: Left-sided facial droop. Rest of cranial nerves 2-12 except facial nerve looks intact, DTR 2+/4 and Symmetrical. Psych/Mental Status: Flat affect. Results Lab / Micro Data Result Diagrams: 08/25/22 15:55 08/25/22 15:55 Labs: Laboratory Results - last 24 hr 08/25/22 15:55: WBC 7.5, RBC 4.86, Hgb 14.1, Hct 42.7, MCV 87.9, MCH 29.0, MCHC 33.0, RDW Std Deviation 39.2, RDW Coeff of Fernando 12.3, Plt Count 235, MPV 10.2, Immature Gran % (Auto) 0.100, Neut % (Auto) 53.0, Lymph % (Auto) 41.4 H, [place] % (Auto) 4.6, Eos % (Auto) 0.8, Baso % (Auto) 0.1, Absolute Neuts (auto) 4.0, Absolute Lymphs (auto) 3.12, Nucleated RBC % 0 08/25/22 15:55: Sodium 141, Potassium 3.7, Chloride 108 H, Carbon Dioxide 28.0, Anion Gap 5, BUN 10, Creatinine 1.12, Estim Creat Clear Calc 67.01, Est GFR (M DRD) Af Amer 86, Est GFR (MDRD) Non-Af 71, BUN/Creatinine Ratio 8.9 L, Glucose 134 H, Calcium 9.4, Total Bilirubin 0.90, AST 13 L, ALT 24, Alkaline Phosphatase 101, Total Protein 7.3, Albumin 3.9, Globulin 3.4, Albumin/Globulin Ratio 1.1 08/25/22 15:55: Ethyl Alcohol < 3.0 08/25/22 15:55: [place] 1.00 08/25/22 16:05: Urine Opiates Screen NEGATIVE, Urine Methadone Screen NEGATIVE, Ur Barbiturates Screen NEGATIVE, Ur Phencyclidine Scrn NEGATIVE, Ur Amphetamines Screen NEGATIVE, MDMA (Ecstasy) Screen NEGATIVE, U Benzodiazepines Scrn NEGATIVE, Urine Cocaine Screen NEGATIVE, U Cannabinoids Screen NEGATIVE, Ur Drug Screen Comment 08/25/22 16:05: Urine Color Yellow, Urine Clarity Clear, Urine pH 5.0, Ur Specific [place] 1.025, Urine Protein 500 H, Urine Glucose (UA) 50 H, Urine Ketones Negative, Urine Occult Blood Negative, Urine Nitrite Negative, Urine Bilirubin Negative, Urine Urobilinogen Normal, Ur Leukocyte Esterase Negative, Urine RBC 0 SEEN, Urine WBC 0 SEEN, Ur Squamous Epith Cells 0 SEEN, Urine Bacteria 0 SEEN, Hyaline Casts 5-10 SEEN, Urine Mucus 0 SEEN Micro: Microbiology 08/25/22 15:55 Nasal Secretion SARS-CoV-2 Antigen (Rapid) - Final Radiology Impression Brain CT 08/25/22 15:48 IMPRESSION: Mild cortical atrophy and periventricular white matter ischemic change. No acute bleed. If concern for acute infarct MRI recommended Electronically Signed: Mode Ang MD at 16:47 EDT Reading Location ID and State: [id number] / [place] , Service support , Assessment & Plan Assessment/Plan (1) Acute alteration in mental status: PLAN: Plan This 62-year-old question gentleman was brought to ED by EMS for altered mental status. 1. Acute encephalopathy, exact etiology unclear possible due to worsening of dementia: In ED patient seems not confused, alert awake oriented x3. Acute encephalopathy resolved. Patient is being admitted for further evaluation by bottle caser and home health aide. Patient does not want to go senior care. IV fluid Ringer lactate for 1 L for dehydration. Patient does not have burning micturition. UA was negative for pyuria and bacteriuria. Mild proteinuria and glucosuria. The patient was last admitted in April 2021 for acute metabolic encephalopathy probably due to lithium toxicity. At that time CVA was ruled out. EEG unremarkable. MRI brain did not show acute ischemia. Echo EF 75%. 2. Chronic psychiatric conditions: Bipolar disorder, schizophrenia, chronic anxiety disorder, underlying intellectual disability and worsening dementia: Patient restimulated by psychiatrist as an outpatient. He has been taken off lithium few weeks ago but is still with him in normal range probably due to its zero pharmacokinetics. Serum sodium is 141. Liver chemistry ALT normal. AST low. Ethyl alcohol negative. U tox negative. 3.Hypertension: Patient is on aspirin, carvedilol, lisinopril and atorvastatin continued. Patient had cardiac cath in September 2019 for atypical chest pain with clinical suspicion of unstable angina. It was reported as angiographically normal coronary arteries, EF LV gram 60%.As mentioned above. However, aspirin and statin was added. 4. Dyslipidemia: As mentioned above. 5. Chronic smoker: Nicotine patch ordered. VTE prophylaxis moderate risk: Heparin 5000 subcutaneous twice daily. Bilateral leg Living will/advanced directive/end of life care: Patient does not have living will or advanced directive. He is adopted daughter is aware of making advanced directive/living will and will contact foster care social worker tomorrow. After discussion of benefits/risks procedures involved with full code, DNR CC arrest and DNR CC, the patient opted for DNRCC arrest with no intubation. To my evaluation, patient has decision-making capacity and is alert awake alert x3. Her adopted daughter agrees with the DNRCC arrest with no intubation and her daughter and I agreed to respect his wish. Patient doesn't want artificial life support including intubation, tube feed, ventilator and/chest compression, central venous catheter, vasopressor and DC shock if needed Total time spent in [id number] encounter in discussion of advanced directive 16 minutes. Microbiology Past 72 Hours 08/25/22 15:55 Nasal Secretion SARS-CoV-2 Antigen (Rapid) - Final Laboratory Results 08/25/22 15:55: WBC 7.5, RBC 4.86, Hgb 14.1, Hct 42.7, MCV 87.9, MCH 29.0, MCHC 33.0, RDW Std Deviation 39.2, RDW Coeff of Fernando 12.3, Plt Count 235, MPV 10.2, Immature Gran % (Auto) 0.100, Neut % (Auto) 53.0, Lymph % (Auto) 41.4 H, [place] % (Auto) 4.6, Eos % (Auto) 0.8, Baso % (Auto) 0.1, Absolute Neuts (auto) 4.0, Absolute Lymphs (auto) 3.12, Nucleated RBC % 0 08/25/22 15:55: Sodium 141, Potassium 3.7, Chloride 108 H, Carbon Dioxide 28.0, Anion Gap 5, BUN 10, Creatinine 1.12, Estim Creat Clear Calc 67.01, Est GFR (MDRD) Af Amer 86, Est GFR (MDRD) Non-Af 71, BUN/Creatinine Ratio 8.9 L, Glucose 134 H, Calcium 9.4, Total Bilirubin 0.90, AST 13 L, ALT 24, Alkaline Phosphatase 101, Total Protein 7.3, Albumin 3.9, Globulin 3.4, Albumin/Globulin Ratio 1.1 08/25/22 15:55: Ethyl Alcohol < 3.0 08/25/22 15:55: [place] 1.00 08/25/22 16:05: Urine Opiates Screen NEGATIVE, Urine Methadone Screen NEGATIVE, Ur Barbiturates Screen NEGATIVE, Ur Phencyclidine Scrn NEGATIVE, Ur Amphetamines Screen NEGATIVE, MDMA (Ecstasy) Screen NEGATIVE, U Benzodiazepines Scrn NEGATIVE, Urine Cocaine Screen NEGATIVE, U Cannabinoids Screen NEGATIVE, Ur Drug Screen Comment 08/25/22 16:05: Urine Color Yellow, Urine Clarity Clear, Urine pH 5.0, Ur Specific [place] 1.025, Urine Protein 500 H, Urine Glucose (UA) 50 H, Urine Ketones Negative, Urine Occult Blood Negative, Urine Nitrite Negative, Urine Bilirubin Negative, Urine Urobilinogen Normal, Ur Leukocyte Esterase Negative, Urine RBC 0 SEEN, Urine WBC 0 SEEN, Ur Squamous Epith Cells 0 SEEN, Urine Bacteria 0 SEEN, Hyaline Casts 5-10 SEEN, Urine Mucus 0 SEEN Charges/Coding Visit Charges OBSV E&M: 44094 Initial observation care L3 Procedures Hospitalists Procedures: 36621 Advncd Care Plan 30 Min
[2022-08-25 20:28] VITALS: BMI 25.6
[2022-08-25 20:29] VITALS: BP 130/77; PULSE 55; RESP 16; TEMP 36.7; O2SAT 99
[2022-08-25] MEDS: Colestipol 1 GM TABLET PO (21:53)
[2022-08-25] MEDS: Atorvastatin Calcium 40 MG Tablet PO (21:53)
[2022-08-25] MEDS: Carvedilol 6.25 MG Tablet PO (21:53)
[2022-08-25] MEDS: Ziprasidone HCl 20 MG Capsule PO (21:57)
[2022-08-25] MEDS: Heparin Injection (Vial) 5,000 UNIT/ML VIAL 5000 UNIT SC (21:57)
[2022-08-25] MEDS: Gabapentin 100 MG Capsule PO (21:57)
[2022-08-26 03:37] VITALS: BP 122/86; PULSE 52; RESP 16; TEMP 36.6; O2SAT 96
[2022-08-26] MEDS: Gabapentin 100 MG Capsule PO ×2 (05:28→14:51)
[2022-08-26 07:17] LABS: Glucose 137 mg/dL (74-106)
[2022-08-26 07:18] LABS: Anion Gap 8 (5-15); BUN 9 mg/dL (7-18); BUN/Creat Ratio 9.6 RATIO (10-20); Calcium,Total 9.1 mg/dL (8.5-10.1); Chloride 107 mmol/L (98-107); Creatinine, Serum 0.94 mg/dL (0.70-1.30); EST Glomerular Filtration Rate 87 mL/min (>60); Est Glom Filt Rate - Afr Amer 105 mL/min (>60); Estimated Creatinine Clearance 79.84 ml/min; Phosphorus 3.5 mg/dL (2.5-4.9); Potassium 3.5 mmol/L (3.5-5.1); Sodium Level 140 mmol/L (136-145); Thyroid Stim Hormone (TSH) 0.83 uIU/mL (0.358-3.74)
[2022-08-26 08:40] VITALS: BP 108/68; PULSE 55; RESP 18; TEMP 37.2; O2SAT 96
[2022-08-26 09:18] LABS: Vitamin B12 359 pg/mL (211-911); Vitamin D,25 Hydroxy 25.1 ng/mL
[2022-08-26] MEDS: Aspirin 81 MG TAB.CHEW PO (10:21)
[2022-08-26] MEDS: Carvedilol 6.25 MG Tablet PO (10:21)
[2022-08-26] MEDS: Colestipol 1 GM TABLET PO (10:21)
[2022-08-26] MEDS: Heparin Injection (Vial) 5,000 UNIT/ML VIAL 5000 UNIT SC (10:21)
[2022-08-26] MEDS: Lisinopril 10 MG Tablet PO (10:21)
[2022-08-26] MEDS: FLU VACC QS2022-23(6MOS UP)/PF 60 MCG/0.5 ML SYRINGE IM (10:21)
--- NOTE | 2022-08-26 11:40 | CASEMGMT ---
Addendum entered by Connie Woodward 08/26/22 14:28: SW updated pt needs transportation home. [facility] Transportation will transport pt home at 3:00pm. Nurse advised. Original Note: RN CM in to pt room. Pt states he wants to go home. Pt gave permission to call his niece regarding his care. TC to niece Génesis, who then gave the phone to Laura. Laura states she is the pt niece but claims him as dad. She states things are going well at home. States pt has obvious dementia. She states she called pt PCP lastnight regarding this and was told to come to ER. She is aware pt did well with therapy and no HHC necessary at this time. She asks for any help in the home and she is aware that the SW will make a referral to [facility]. Provided phone number on dc instructions. She is aware to make pt an appt with PCP. She denies need for CM to set up appt. States they use the insurance for transportation but states pt will have someone with him at the visit. States she cooks meals for pt 3-4/day. No further needs identified at this time. SW to make referral.
--- NOTE | 2022-08-26 11:46 | CASEMGMT ---
Social Work SW notified by RN Mary RED, that family requesting a referral be made to [facility] for aide services as pt not appropriate for correction home or C at this time. SW completed referral online. TROY Cabezas
--- NOTE | 2022-08-26 14:05 | CASEMGMT ---
Social Work SW received update on pt from Mary FREITAS CM, that pt concerned about pt mental health. SW met with pt and conducted mini mental status exam. Pt scored 24/30 with minor deficiencies in recall and orientation. Pt shared sees someone at counseling center and gave this SW permission to call to determine next appointment. Pt discussed family and living situation. Pt stated would return home but does not always feel great there because many people live there. [facility] to confirm services. Pt sees Margarita Luevano and missed last appointment on 08/19. Next appointment is tomorrow 08/26 at 4:30 pm. SW also spoke to Vinita in Crisis and Psych Services. SW asked about referring pt to Case Management services. Vinita reported will begin that process for pt. FREEMAN updated pt on results of mini mental and of upcoming appointment at [facility]. reports was waiting for pt's PCP to call with current meds. feels will not receive call this late in the day but feels ready to discharge pt as he now has follow up care. FREEMAN spoke to pt family and family reports no transportation to pick pt up. SW asked FORTINO RED to assist with transportation. Pt's nurse updated on discharge plan. TROY Cabezas
--- NOTE | 2022-08-26 14:22 | CASEMGMT ---
RN NEDA Face to Face with patient for initial transition planning/care coordination assessment. RN CM introduced self and role at [facility]. Patient sitting in chair, alert and oriented. Patient willing to participate in assessment and is able to answer all questions appropriately. Care providers, pharmacy, and demographics verified. Patient wishes to discharge home, denies need for home health at this time. Patient states he has no further needs or concerns at this time. CM to follow for discharge planning needs that may arise. PCP: [facility]man Specialists: none Preferred Pharmacy: [facility] retail at discharge. Insurance: [employer] Prescription Benefit: yes Living Will/HPOA: none LNOK: Niece Living Arrangements: Patient states he lives with niece in a 2 story home with bed and bath on first floor. Patient states he is independent at home. Transportation: Niece DME/HHC: Patient denies DME in the home. No previous HHC or SNF. Patient was independent with therapy. Disposition Plan: Patient to discharge home with family support and follow-up plansin place. CM to follow-up with niece. Vinita BAIRD, RN, CM
--- NOTE | 2022-08-26 14:37 | DCINST_ITS ---
Discharge Instructions Diet Discharge Diet: No restrictions Activity Discharge Activity: Return to Normal Activity Weight Bearing Status: Full weight bearing Follow Up Care Test Results: Test results from this visit will be discussed in further detail at your follow- up appointment, if applicable. Discharge Plan Admission Admit Date/Time: 08/25/22 20:19 Primary Reason for Your Visit: confusion Attending Provider: Marquise Salinas Primary Care Provider: Manolo Brewer Consulting Providers: Lobo Ward Instructions Additional Instructions / Restrictions: You will require 24 hour/day supervision for safety Discharge Orders/Prescriptions Prescriptions: Continued colestipol 1 tablet 1 gm PO BID lisinopril 10 MG tablet 10 mg PO DAILY Qty: 30 0RF aspirin 81 MG tablet,chewable 81 mg PO DAILY@0800 Qty: 30 0RF atorvastatin 40 MG tablet 40 mg PO QHS Qty: 30 0RF carvedilol 6.25 MG tablet 6.25 mg PO BID Qty: 60 0RF risperidone 4 MG tablet 8 mg PO QHS trihexyphenidyl 2 MG tablet 2 mg PO BID risperidone 1 mg tablet 1 mg PO DAILY lithium carbonate 600 mg capsule 600 mg PO QHS Qty: 30 0RF ziprasidone HCl 20 mg capsule 20 mg PO DAILY gabapentin 100 mg capsule 100 mg PO TID Referrals / Follow Up: Manolo Brewer DO [Primary Care Provider] - Within 2 Weeks Margarita Luevano NP, DIET THERAPIST-C [Non-Staff] - (Called [facility] to confirm next appointment. AUGUST 26, 2022 at 4:30 PM ) Disposition Disposition (needs filled in before D/C Order can be placed): Home, Self Care
--- NOTE | 2022-08-26 14:40 | DS.PCM_ITS ---
Providers Date of Admission: 08/25/22 Date of Discharge: 08/26/22 Primary Care Physician: Dr. Manolo Brewer DO Reason For Visit: worsening dementia Diagnosis Discharge Diagnosis (1) Acute alteration in mental status: Status: Inactive Code(s): R41.82 - Altered mental status, unspecified Plan 1. Dementia #2 bipolar disorder #3 essential hypertension #4 hyperlipidemia #5 schizophrenia Medications at Discharge Home Medications colestipol 1 gram tablet 1 gm PO BID cholesterol 05/10/19 aspirin 81 mg chewable tablet 81 mg PO DAILY@0800 ##30 09/24/19 atorvastatin 40 mg tablet 40 mg PO QHS #30 tabs 09/24/19 carvedilol 6.25 mg tablet 6.25 mg PO BID #60 tabs 09/24/19 lisinopril 10 mg tablet 10 mg PO DAILY #30 tabs 09/24/19 risperidone 4 mg tablet 8 mg PO QHS 01/13/21 trihexyphenidyl 2 mg tablet 2 mg PO BID 01/13/21 risperidone 1 mg tablet 1 mg PO DAILY 04/06/21 lithium carbonate 600 mg capsule 600 mg PO QHS #30 caps 04/09/21 gabapentin 100 mg capsule 100 mg PO TID 08/25/22 ziprasidone HCl 20 mg capsule 20 mg PO DAILY 08/25/22 Hospital Course Operations None Procedures None Summary of Care Provided Minutes Spent on Discharge: 31 Hospital Course: This 62-year-old white male was brought into the emergency room by family out of concern for confusion. The patient's history relayed by the family stated that the patient has been declining progressively over the past few years and over the last 2 weeks patient has become more confused. Family requested placement into a nursing facility or psychiatric facility due to their inability to manage the patient at home. Patient left his home today was seen in the emergency room and walked into the [facility] and was gone for 3 to 4 hours. Patient has a history of schizophrenia and bipolar disorder. Patient was placed in observation status on MedSur 3, he was seen by PT and OT, it was determined that he did not require jail services and the family felt that they could manage the patient at home with supervision. On 08/26/2022, patient was seen and examined: On examination he appeared older than his stated age, he exhibited confusion. Vital signs as documented. Skin warm and dry and without overt rashes. Neck without JVD, neck was supple, trachea midline, thyroid was normal. Lungs clear bilaterally, normal air movement was noted. Heart exam notable for regular rhythm, normal sounds and absence of murmurs, rubs or gallops. Abdomen unremarkable and without evidence of organomegaly, masses, or abdominal aortic enlargement. Bowel sounds are present, abdomen is not distended. Extremities nonedematous, no cyanosis was noted, no clubbing was noted. Neuro: Cranial nerves II through XII are grossly intact, no focal motor deficits were noted, sensation to light touch and pinprick intact, motor exam 5/5 throughout. Psych: Patient is alert, he is oriented to self Patient was discharged home in stable condition on 08/26/2022. Weight / BMI Weight Weight: 76.5 kg Body Mass Index (BMI) 25.6 ABG / Lab / Microbiology Data Result Diagrams: 08/25/22 15:55 08/26/22 05:23 Laboratory: Laboratory Results - last 24 hr 08/25/22 15:55: WBC 7.5, RBC 4.86, Hgb 14.1, Hct 42.7, MCV 87.9, MCH 29.0, MCHC 33.0, RDW Std Deviation 39.2, RDW Coeff of Fernando 12.3, Plt Count 235, MPV 10.2, Immature Gran % (Auto) 0.100, Neut % (Auto) 53.0, Lymph % (Auto) 41.4 H, [place] % (Auto) 4.6, Eos % (Auto) 0.8, Baso % (Auto) 0.1, Absolute Neuts (auto) 4.0, Absolute Lymphs (auto) 3.12, Nucleated RBC % 0 08/25/22 15:55: Sodium 141, Potassium 3.7, Chloride 108 H, Carbon Dioxide 28.0, Anion Gap 5, BUN 10, Creatinine 1.12, Estim Creat Clear Calc 67.01, Est GFR (MDRD) Af Amer 86, Est GFR (MDRD) Non-Af 71, BUN/Creatinine Ratio 8.9 L, Glucose 134 H, Calcium 9.4, Total Bilirubin 0.90, AST 13 L, ALT 24, Alkaline Phosphatase 101, Total Protein 7.3, Albumin 3.9, Globulin 3.4, Albumin/Globulin Ratio 1.1 08/25/22 15:55: Ethyl Alcohol < 3.0 08/25/22 15:55: [place] 1.00 08/25/22 16:05: Urine Opiates Screen NEGATIVE, Urine Methadone Screen NEGATIVE, Ur Barbiturates Screen NEGATIVE, Ur Phencyclidine Scrn NEGATIVE, Ur Amphetamines Screen NEGATIVE, MDMA (Ecstasy) Screen NEGATIVE, U Benzodiazepines Scrn NEG ATIVE, Urine Cocaine Screen NEGATIVE, U Cannabinoids Screen NEGATIVE, Ur Drug Screen Comment 08/25/22 16:05: Urine Color Yellow, Urine Clarity Clear, Urine pH 5.0, Ur Specific [place] 1.025, Urine Protein 500 H, Urine Glucose (UA) 50 H, Urine Ketones Negative, Urine Occult Blood Negative, Urine Nitrite Negative, Urine Bilirubin Negative, Urine Urobilinogen Normal, Ur Leukocyte Esterase Negative, Urine RBC 0 SEEN, Urine WBC 0 SEEN, Ur Squamous Epith Cells 0 SEEN, Urine Bacteria 0 SEEN, Hyaline Casts 5-10 SEEN, Urine Mucus 0 SEEN 08/26/22 05:23: Sodium 140, Potassium 3.5, Chloride 107, Carbon Dioxide 25.0, Anion Gap 8, BUN 9, Creatinine 0.94, Estim Creat Clear Calc 79.84, Est GFR (MDRD) Af Amer 105, Est GFR (MDRD) Non-Af 87, BUN/Creatinine Ratio 9.6 L, Glucose 137 H, Calcium 9.1, Phosphorus 3.5, Folate 18.20, TSH 0.83 08/26/22 05:23: Vitamin B12 359, Vitamin D 25-Hydroxy 25.1 Microbiology: Microbiology 08/25/22 15:55 Nasal Secretion SARS-CoV-2 Antigen (Rapid) - Final Radiography Diagnostic Testing: Radiology Impression Brain CT 08/25/22 15:48 IMPRESSION: Mild cortical atrophy and periventricular white matter ischemic change. No acute bleed. If concern for acute infarct MRI recommended Electronically Signed: Mode Ang MD at 16:47 EDT Reading Location ID and State: [facility] [place] / [place] , Service support , D/C Instructions Discharge Diet: No restrictions Weight Bearing Status: Full weight bearing Meaningful Use Info Meaningful Use Diagnoses (Choose all that apply): None applicable Discharge Plan Admission Admit Date/Time: 08/25/22 20:19 Primary Reason for Your Visit: confusion Attending Provider: Marquise Salinas Primary Care Provider: Manolo Brewer Consulting Providers: Lobo Ward Instructions Additional Instructions / Restrictions: You will require 24 hour/day supervision for safety Discharge Orders/Prescriptions Prescriptions: Continued colestipol 1 tablet 1 gm PO BID lisinopril 10 MG tablet 10 mg PO DAILY Qty: 30 0RF aspirin 81 MG tablet,chewable 81 mg PO DAILY@0800 Qty: 30 0RF atorvastatin 40 MG tablet 40 mg PO QHS Qty: 30 0RF carvedilol 6.25 MG tablet 6.25 mg PO BID Qty: 60 0RF risperidone 4 MG tablet 8 mg PO QHS trihexyphenidyl 2 MG tablet 2 mg PO BID risperidone 1 mg tablet 1 mg PO DAILY lithium carbonate 600 mg capsule 600 mg PO QHS Qty: 30 0RF ziprasidone HCl 20 mg capsule 20 mg PO DAILY gabapentin 100 mg capsule 100 mg PO TID Referrals / Follow Up: Manolo Brewer DO [Primary Care Provider] - Within 2 Weeks Margarita Luevano NP, WAREDRESSER-C [Non-Staff] - (Called [facility] to confirm next appointment. AUGUST 26, 2022 at 4:30 PM ) Disposition Disposition (needs filled in before D/C Order can be placed): Home, Self Care Charges/Coding Visit Charges OBSV E&M: 06028 Observation care discharge
[2022-08-26 14:45] VITALS: BP 140/88; PULSE 50; RESP 16; TEMP 36.6; O2SAT 97
== END 2022-08-26 14:54 | disposition home or self-care (01) ==
LOC: ED 17:18 → MS3 20:48
PROVIDERS: Admitting Provider Internal Medicine; Emergency Provider Student in an Organized Health Care Education/Training Program; PCP Student in an Organized Health Care Education/Training Program; Visit Provider Internal Medicine
DX: R41.82 Altered mental status, unspecified (principal); F20.9 Schizophrenia, unspecified; F03.90 Unspecified dementia, unspecified severity, without behavioral disturbance, psychotic disturbance, mood disturbance, and anxiety; F31.9 Bipolar disorder, unspecified; Z79.82 Long term (current) use of aspirin; I10 Essential (primary) hypertension; E78.5 Hyperlipidemia, unspecified; I45.10 Unspecified right bundle-branch block; Z23 Encounter for immunization; Z79.899 Other long term (current) drug therapy; F41.9 Anxiety disorder, unspecified; F17.210 Nicotine dependence, cigarettes, uncomplicated; F79 Unspecified intellectual disabilities
CPT/HCPCS: 90686; 36415; 70450; 80048; 80053; 80178; 80307; 81001; 82077; 82306; 82607; 82746; 84100; 84443; 85025; 87811; 93005; 96372; 97162; 97165; 99218; 99285; 99406; A4216; G0378

== ENCOUNTER 2022-09-02 22:56 | Emergency (ER) | payer MEDICAID, SELFPAY ==
[2022-09-02 22:57] VITALS: BP 144/87; PULSE 65; RESP 18; TEMP 36.4; O2SAT 99; BMI 27.6
--- NOTE | 2022-09-02 23:22 | CT_ITS ---
STUDY: CT HEAD W/O CONTRAST INJECTION REASON FOR EXAM: Male, 62 years old. Change in Mental Status RADIATION DOSAGE (If Supplied By Facility): CTDIvol = ( 44.99 ) mGy, DLP = ( 796.11 ) mGycm TECHNIQUE: Transaxial CT imaging of the brain was performed without administration of intravenous contrast material. Individualized dose optimization techniques were used for this CT. COMPARISON: CT head 08/25/2022. FINDINGS: BRAIN: No acute bleed. No edema. Valentino-white matter differentiation is maintained. Arterial calcifications. VENTRICLES AND SULCI: The ventricles are not dilated. The sulci are prominent. EXTRA-AXIAL: No hemorrhage, fluid collection, or mass. CALVARIUM / SKULL BASE: Unremarkable. FACE/SINUSES: Mucosal thickening in the maxillary sinuses. SOFT TISSUES: Unremarkable. CT/Brain/Head without Contrast IMPRESSION: No acute abnormality. Electronically Signed: Lisha Peguero MD at 23:58 EDT ,
--- NOTE | 2022-09-02 23:22 | EKG12_ITS ---
Test Reason : DYSRHYTHMIA Blood Pressure : / mmHG Vent. Rate : 064 BPM Atrial Rate : 064 BPM P-R Int : 156 ms QRS Dur : 124 ms QT Int : 452 ms P-R-T Axes : 072 056 035 degrees QTc Int : 466 ms Normal sinus rhythm Right bundle branch block Abnormal ECG Confirmed by CESAR GUDINO, CHUY ([id number]), medical editor CATIE BENITEZ ([id number]) on 09/04/2022 9:29:00 AM Referred By: Confirmed By:CHUY GUERRERO MD
--- NOTE | 2022-09-02 23:46 | EDS_ITS ---
HPI HPI - Psych History of Present Illness Chief Complaint: Mental Health Informant: patient, family, EMS and mental health staff Narrative Narrative: 62-year-old male was brought to the emergency department tonight by EMS with reported altered mental status changes. He has been in the emergency department several times recently and was recently admitted and then discharged back to family care. Reportedly the family stated tonight that he could no longer care for him and sent him to the emergency room. No family has come with him at this point. He states that his medications were changed recently but its not helping. The patient tells me that he does hear voices but does not see any hallucinations. He states he feels persecuted. He states that he is now homeless does not know what to do. There are different diagnoses in chart review such as schizophrenia and bipolar disorder as well as stroke. He does not voice suicidal or homicidal ideation. He cannot tell me the last time he took a shower. He states that he did eat dinner tonight. He cannot tell me if he is taking his medications. [facility] Medical History Acute alteration in mental status Anxiety Bipolar disorder Depression Essential (primary) hypertension Hyperlipidemia Hypertension Schizophrenia Smoker Suicidal risk Home Medications colestipol 1 gram tablet 1 gm PO BID cholesterol 05/10/19 [History Last Taken 04/06/21] aspirin 81 mg chewable tablet 81 mg PO DAILY@0800 ##30 09/24/19 [Rx Last Taken 04/06/21] atorvastatin 40 mg tablet 40 mg PO QHS #30 tabs 09/24/19 [Rx Last Taken 04/05/21] carvedilol 6.25 mg tablet 6.25 mg PO BID #60 tabs 09/24/19 [Rx Last Taken 0 04/06/21] lisinopril 10 mg tablet 10 mg PO DAILY #30 tabs 09/24/19 [Rx Last Taken 04/06/21] gabapentin 100 mg capsule 100 mg PO TID 08/25/22 [History Last Taken Unknown] ziprasidone HCl 20 mg capsule 60 mg PO QHS 08/25/22 [History Last Taken Unknown] Allergy/AdvReac Type Severity Reaction Status Date / Time No Known Allergies Allergy Verified 08/25/22 15:20 Surgical History History of left heart catheterization (09/24/19) Social History household members: other details: Lives in a long term with other MRDD individuals Smoking Status: Current every day smoker tobacco type: cigarettes alcohol intake: never details: Unknown with regards to alcohol use substance use type: does not use ROS ROS ED Constitutional Constitutional ED: Denies chills or weight loss Eyes Eyes: Denies change in vision or diplopia ENT ENT ED: Denies ear pain, rhinorrhea or sore throat Cardiovascular Cardiovascular: Denies chest pain, orthopnea, palpitations or racing heartbeat Respiratory/Chest Respiratory/Chest: Denies cough, dyspnea or orthopnea Gastrointestinal Gastrointestinal: Denies abdominal pain, diarrhea, nausea or vomiting Genitourinary Genitourinary ED: Denies dysuria, hematuria or urinary frequency Musculoskeletal Musculoskeletal: Denies arthralgias or myalgias Integumentary Denies abscess or rash Neurologic Neurologic: Denies headache(s) or weakness Psychiatric Psychiatric: Reports other Details: Auditory hallucinations feelings of persecution internal stimulation ; Denies anxiety, depression, suicidal ideation or suicidal thoughts Endocrine Endocrinology: Denies polydipsia, polyphagia or polyuria Allergic/Immunologic Allergic/Immunologic ED: Denies mouth swelling, tongue swelling or urticaria EXAM Physical Exam Const Vital Signs: 09/02/22 22:57 09/03/22 00:56 Temperature 97.6 F L Temperature Source Temporal Pulse Rate 65 69 Respiratory Rate 18 15 Blood Pressure 144/87 H 139/88 H Blood Pressure Mean 106 105 Pulse Ox 99 98 Oxygen Delivery Method Room Air Room Air Positive well nourished, well developed and unkempt General Appearance ED: unkempt and well developed HEENT Reports normocephalic, head/scalp atraumatic and moist mucous membranes Eyes PERRL and EOMs intact bilaterally Neck no lymphadenopathy, supple and no JVD Resp normal respiratory effort and clear to auscultation bilaterally Cardio regular rate, regular rhythm and no murmurs GI normal to inspection, nondistended, normoactive bowel sounds and non-tender Palpation: soft Back/Spine no CVA tenderness and normal ROM Extremity normal to inspection General Extremety ED: Negative for edema General Extremity: Negative for edema Neuro oriented x3 and CN's II-XII intact bilaterally Sensorium / Orientation: alert Motor Exam: strength 5/5 throughout Psych denies homicidal ideation and denies suicidal ideation Appearance: unkempt Attitude: paranoid and withdrawn Speech: normal speech Mood & Affect: Negative for depressed or tearful Thought Process: disorganized Thought Content: No suicidality and No homicidality Judgement: limited Skin no rashes or lesions noted and no wounds MDM MDM MDM Narrative Medical decision making narrative: Psychiatric screening labs were obtained and are negative. Urinalysis was obtained demonstrates 5-10 white cells 1+ bacteria and nitrates. This will be sent for culture. He does not have a white count he is not febrile and he does not have any urinary symptoms so I think we should wait for the culture. COVID test is negative. Head CT is negative. Patient is now medically cleared for psychiatric care. We will have crisis evaluate him and assist us in disposition Lab Data Attestation: I reviewed the patient's lab results. Labs: Laboratory Results - last 24 hr 09/02/22 09/02/22 09/02/22 23:36 23:36 23:36 WBC 9.6 RBC 4.57 L Hgb 14.0 Hct 40.0 MCV 87.5 MCH 30.6 MCHC 35.0 RDW Std Deviation 39.6 RDW Coeff of Fernando 12.4 Plt Count 211 MPV 10.2 Immature Gran % (Auto) 0.900 Neut % (Auto) 73.5 H Lymph % (Auto) 19.8 Alexander % (Auto) 4.2 Eos % (Auto) 1.4 Baso % (Auto) 0.2 Absolute Neuts (auto) 7.0 Absolute Lymphs (auto) 1.89 Nucleated RBC % 0 Sodium 139 Potassium 3.6 Chloride 105 Carbon Dioxide 27.0 Anion Gap 7 BUN 10 Creatinine 0.91 Estim Creat Clear Calc 82.47 Est GFR (MDRD) Af Amer 109 Est GFR (MDRD) Non-Af 90 BUN/Creatinine Ratio 11.0 Glucose 103 Calcium 9.4 Total Bilirubin Direct Bilirubin AST ALT Alkaline Phosphatase Total Protein Albumin Globulin TSH 0.44 Urine Color Urine Clarity Urine pH Ur Specific [place] Urine Protein Urine Glucose (UA) Urine Ketones Urine Occult Blood Urine Nitrite Urine Bilirubin Urine Urobilinogen Ur Leukocyte Esterase Urine RBC Urine WBC Ur Squamous Epith Cells Urine Bacteria Urine Mucus Urine Opiates Screen Urine Methadone Screen Ur Barbiturates Screen Ur Phencyclidine Scrn Ur Amphetamines Screen MDMA (Ecstasy) Screen U Benzodiazepines Scrn Urine Cocaine Screen U Cannabinoids Screen Ur Drug Screen Comment Ethyl Alcohol 3.0 09/02/22 09/03/22 09/03/22 23:36 00:05 00:05 WBC RBC Hgb Hct MCV MCH MCHC RDW Std Deviation RDW Coeff of Fernando Plt Count MPV Immature Gran % (Auto) Neut % (Auto) Lymph % (Auto) Alexander % (Auto) Eos % (Auto) Baso % (Auto) Absolute Neuts (auto) Absolute Lymphs (auto) Nucleated RBC % Sodium Potassium Chloride Carbon Dioxide Anion Gap BUN Creatinine Estim Creat Clear Calc Est GFR (MDRD) Af Amer Est GFR (MDRD) Non-Af BUN/Creatinine Ratio Glucose Calcium Total Bilirubin 0.60 Direct Bilirubin 0.23 AST 20 ALT 22 Alkaline Phosphatase 103 Total Protein 7.4 Albumin 3.9 Globulin 3.5 TSH Urine Color Yellow Urine Clarity Clear Urine pH 6.0 Ur Specific [place] 1.010 Urine Protein Negative Urine Glucose (UA) Normal Urine Ketones Negative Urine Occult Blood Negative Urine Nitrite Positive H Urine Bilirubin Negative Urine Urobilinogen Normal Ur Leukocyte Esterase 500 H Urine RBC 0 SEEN Urine WBC 5-10 SEEN Ur Squamous Epith Cells 0 SEEN Urine Bacteria 1+ Urine Mucus 0 SEEN Urine Opiates Screen NEGATIVE Urine Methadone Screen NEGATIVE Ur Barbiturates Screen NEGATIVE Ur Phencyclidine Scrn NEGATIVE Ur Amphetamines Screen NEGATIVE MDMA (Ecstasy) Screen NEGATIVE U Benzodiazepines Scrn NEGATIVE Urine Cocaine Screen NEGATIVE U Cannabinoids Screen NEGATIVE Ur Drug Screen Comment Ethyl Alcohol Radiography Diagnostic Testing: Clinical Impression(s) from Imaging Studies Brain CT 09/02/22 23:22 IMPRESSION: No acute abnormality. Electronically Signed: Lisha Peguero MD at 23:58 EDT , EKG Initial EKG: Attestation: I personally reviewed and interpreted this EKG as follows: Comments: Normal sinus rhythm with a right bundle branch block and a ventricular rate of 64 bpm Prior EKG tracings: available for review Prior: Unchanged Discharge Plan Triage Chief Complaint: Mental Health ED Provider: Javier Reza Dx/Rx/DC Orders Prescriptions: No Action colestipol 1 tablet 1 gm PO BID lisinopril 10 MG tablet 10 mg PO DAILY Qty: 30 0RF aspirin 81 MG tablet,chewable 81 mg PO DAILY@0800 Qty: 30 0RF atorvastatin 40 MG tablet 40 mg PO QHS Qty: 30 0RF carvedilol 6.25 MG tablet 6.25 mg PO BID Qty: 60 0RF ziprasidone HCl 20 mg capsule 60 mg PO QHS gabapentin 100 mg capsule 100 mg PO TID Primary Care Provider: Manolo Brewer Referrals: Manolo Brewer DO [Primary Care Provider] -
[2022-09-02 23:52] LABS: Absolute Lymphocyte Count 1.89 X10^3/uL (0.83-4.51); Basophil# 0.02 X10^3/uL; Basophil% 0.2 % (0-1); Eosinophil# 0.13 X10^3/uL; Eosinophils% 1.4 % (0-5); Lymphocyte # 1.89 X10^3/ul (0.83-4.51); Lymphocyte % 19.8 % (19-41); Mean Corpuscular Hgb 30.6 pg (27.0-32.0); Mean Corpuscular Volume 87.5 fL (80-94); Mean Platelet Vol. 10.2 fl (6.2-12.0); Monocyte% 4.2 % (0-10); NRBC Flagged by Analyzer 0 % (0-5); Neutrophil # 7.02 X10^3/uL (2.7-7.7); Neutrophil % 73.5 % (47-70); Platelet Count 211 K/mm3 (150-450); RBC Distribution Width CV 12.4 % (11.6-14.6); RBC Distribution Width SD 39.6 fl (35.1-43.9); Red Blood Count 4.57 M/mm3 (4.6-6.2); White Blood Count 9.6 K/mm3 (4.4-11.0)
[2022-09-03 00:14] LABS: Mucous, Urine 0 SEEN /hpf (<or=2+); Red Blood Cells-Urine 0 SEEN /hpf (0-5); Squamous Epithelial Cells - UA 0 SEEN /hpf (0-5)
[2022-09-03 00:15] LABS: Anion Gap 7 (5-15); BUN 10 mg/dL (7-18); Calcium,Total 9.4 mg/dL (8.5-10.1); Chloride 105 mmol/L (98-107); Creatinine, Serum 0.91 mg/dL (0.70-1.30); EST Glomerular Filtration Rate 90 mL/min (>60); Est Glom Filt Rate - Afr Amer 109 mL/min (>60); Estimated Creatinine Clearance 82.47 ml/min; Glucose 103 mg/dL (74-106); Potassium 3.6 mmol/L (3.5-5.1); Sodium Level 139 mmol/L (136-145); Thyroid Stim Hormone (TSH) 0.44 uIU/mL (0.358-3.74)
--- NOTE | 2022-09-03 00:22 | ED.RN ---
Pt clothing removed and pt placed in gown. x4 pairs of scissors, beam carrier hauler pusher and wallet placed in bag and given to security.
[2022-09-03 00:25] LABS: Color, Urine Yellow (Yellow); Glucose, Dipstick Normal (Normal); Ketone-Dipstick Negative (Negative); Leukocyte Esterase-Dipstick 500 /ul (Negative); Nitrite-Dipstick Positive (Negative); Occult Blood-Urine Negative /ul (Negative); Protein-Dipstick Negative (Negative); Urine Bilirubin Dipstick Negative (Negative); Urine Clarity Clear (Clear); Urine Urobilinogen Normal (Normal)
[2022-09-03 00:26] LABS: Amphetamine Urine VISTA NEGATIVE (<1000 ng/mL); Barbiturate Urine VISTA NEGATIVE (< 200 ng/mL); Benzodiazepine Urine VISTA NEGATIVE (< 200 ng/mL); Cocaine Urine VISTA NEGATIVE (< 300 ng/mL); Ecstacy Urine VISTA NEGATIVE (< 500 ng/mL); Methadone Urine VISTA NEGATIVE (< 300 ng/mL); PCP Urine VISTA NEGATIVE (< 25 ng/mL); THC Urine VISTA NEGATIVE (< 50 ng/mL); Vista UDS pH Range 5
[2022-09-03 00:35] LABS: Bacteria 1+ /hpf (None Seen); White Blood Cells 5-10 SEEN /hpf (0-5)
[2022-09-03 00:56] VITALS: BP 139/88; PULSE 69; RESP 15; O2SAT 98
--- NOTE | 2022-09-03 00:58 | NURSING ---
CALLED AND FAXED CHART TO [facility] FOR PT.
[2022-09-03 01:20] LABS: AST(SGOT) 20 U/L (15-37); Alanine Aminotransfer ALT/SGPT 22 U/L (16-61); Albumin, Serum 3.9 g/dL (3.2-5.0); Alkaline Phosphatase 103 U/L (45-117); Bilirubin, Direct 0.23 mg/dL (0.00-0.30); Globulin 3.5 g/dL (2.2-4.2); Protein, Total 7.4 g/dL (6.4-8.2)
--- NOTE | 2022-09-03 01:25 | ED.RN ---
Called pts daughter [place] and med list updated. Requesting that when a decision is decided to be updated at [phone]
[2022-09-03 02:38] VITALS: RESP 16
[2022-09-03 06:10] VITALS: BP 152/97; PULSE 69; RESP 16; TEMP 36.2; O2SAT 100
--- NOTE | 2022-09-03 06:51 | ED.RN ---
ATTEMPTED TO CALL REPORT X2 TO [phone] NO ANSWER EITHER TIME.
== END 2022-09-03 08:40 ==
PROVIDERS: Emergency Provider Emergency Medicine; PCP Student in an Organized Health Care Education/Training Program; Visit Provider Emergency Medicine
DX: R41.0 Disorientation, unspecified (principal); F20.9 Schizophrenia, unspecified; F31.9 Bipolar disorder, unspecified; I10 Essential (primary) hypertension; E78.5 Hyperlipidemia, unspecified; F17.210 Nicotine dependence, cigarettes, uncomplicated; Z79.899 Other long term (current) drug therapy
CPT/HCPCS: 70450; 80048; 80076; 80307; 81001; 82077; 84443; 85025; 87077; 87086; 87088; 87186; 87811; 93005; 99285

== ENCOUNTER 2022-09-17 11:58 | Emergency (ER) | payer MEDICAID, SELFPAY ==
[2022-09-17] VITALS (8 sets, daily range): BP systolic 118–124; BP diastolic 71–84; PULSE 73–92; RESP 16–28; TEMP 36.3–36.9; O2SAT 95–98; BMI 25.2
--- NOTE | 2022-09-17 12:16 | CT_ITS ---
STUDY: CT BRAIN WITHOUT CONTRAST REASON FOR EXAM: Male, 62 years old. Head trauma. Confusion. RADIATION DOSAGE (If Supplied By Facility): CTDIvol = ( 44.99 ) mGy, DLP = ( 846.73 ) mGycm TECHNIQUE: Transaxial CT imaging of the brain was performed without administration of intravenous contrast material. Individualized dose optimization techniques were used for this CT. COMPARISON: Comparison is made with prior study 09/02/2022. FINDINGS: Normal soft tissue structures. Normal calvarium. There is mild cerebral atrophy with widening of the extra-axial spaces and ventricular dilatation. Normal white matter tracts of the cerebral hemispheres. Normal basal ganglia and thalami. Normal brainstem. Normal cerebellum. There is no intracranial hemorrhage. There are no findings of an acute ischemic infarction. Atherosclerotic calcification of the cavernous portions of the internal carotid arteries bilaterally as well as the vertebral arteries. Mild degree of mucosal thickening along the posterior aspect of the right maxillary sinus. CT/Brain/Head without Contrast IMPRESSION: Chronic involutional changes of the brain. Focal mucosal thickening at the base of the right maxillary sinus. Electronically Signed: Jorge Gore MD at 13:40 EST ,
--- NOTE | 2022-09-17 12:17 | RAD_ITS ---
STUDY: X-RAY CHEST REASON FOR EXAM: Male, 62 years old. Cough and dyspnea TECHNIQUE: AP and lateral views of the chest. COMPARISON: Comparison is made with prior study dated 08/22/2022. FINDINGS: EKG electrode are seen. Hyperinflation. The lungs are clear. Azygos lobe. This is a normal variant. There is no demonstrated pleural abnormality. Normal size heart. Normal mediastinum and michael. Normal visualized pulmonary arteries. Normal visualized aortic arch and descending thoracic aorta. There are degenerative changes of the visualized thoracic spine. Normal visualized ribs, clavicles, and shoulders. There is no demonstrated abnormality of the visualized soft tissue structures of the upper abdomen. RAD/Chest PA and Lateral IMPRESSION: Hyperinflation. The lungs are clear. Electronically Signed: Jorge Gore MD at 13:04 EST ,
[2022-09-17 12:43] LABS: Absolute Lymphocyte Count 2.17 X10^3/uL (0.83-4.51); Absolute Neutrophil Count 12.6 X10^3/uL (2.0-7.7); Basophil# 0.05 X10^3/uL; Basophil% 0.3 % (0-1); Eosinophil# 0.03 X10^3/uL; Eosinophils% 0.2 % (0-5); Hematocrit 46.2 % (40-54); Hemoglobin 15.5 g/dL (13.0-16.5); Lymphocyte # 2.17 X10^3/ul (0.83-4.51); Lymphocyte % 13.8 % (19-41); Mean Corp Hgb Conc 33.5 g/dL (32-36); Mean Corpuscular Hgb 29.2 pg (27.0-32.0); Mean Platelet Vol. 9.4 fl (6.2-12.0); Monocyte# 0.73 X10^3/uL; Monocyte% 4.7 % (0-10); NRBC Flagged by Analyzer 0 % (0-5); Neutrophil # 12.64 X10^3/uL (2.7-7.7); Neutrophil % 80.6 % (47-70); Platelet Count 266 K/mm3 (150-450); RBC Distribution Width CV 12.9 % (11.6-14.6); RBC Distribution Width SD 40.9 fl (35.1-43.9); Red Blood Count 5.31 M/mm3 (4.6-6.2); White Blood Count 15.7 K/mm3 (4.4-11.0)
[2022-09-17 12:54] LABS: Alcohol, Blood (Medical)-Serum < 3.0 mg/dL
--- NOTE | 2022-09-17 12:55 | EDS_ITS ---
HPI <Dr. Matt Collazo MD - Last Filed: 09/25/22 20:05> History of Present Illness Chief Complaint: Lower Extremity Injury Detail of Chief Complaint: Reported left lower extremity pain and psychosocial issues at home Informant: patient and EMS Onset/Context/Timing Onset: - (Uncertain) Context: - (Presently he does not complain of pain in his left lower extremity) Timing: Intermittent Quality: Pain Location: Left lower extremity in the greater trochanteric region Current Severity: Gone Maximum Severity: Moderate Worsened by: Unknown Relieved by: Nothing Associated Symptoms Associated Symptoms: No associated symptoms Narrative Narrative: Patient is a 62-year-old male with history of bipolar affective disorder, hyperlipidemia, essential hypertension and GERD who was brought to the emergency department because of hip/left lower extremity pain. He apparently walked to the ambulance. He states the abrasions are due to being in the [place]. He complains of mild head pain. He denies double vision, blurred vision loss of vision. Nuys ringing in his ears or decreased hearing. Trouble speech or swallowing. Nuys trouble with balance or coordination. He denies cardiac respiratory symptoms. He denies GI symptoms. He denies urologic symptoms. He is not on an anticoagulant. He apparently has not been compliant with his medication. Prior similar symptoms: Yes Recent Illness/Hospitalization: No PFSH <Dr. Matt Collazo MD - Last Filed: 09/25/22 20:05> PFSH Medical History Acute alteration in mental status Anxiety Bipolar disorder CVA (cerebral vascular accident) Depression Essential (primary) hypertension Hyperlipidemia Hypertension Schizophrenia Smoker Suicidal risk Home Medications colestipol 1 gram tablet 1 gm PO BID cholesterol 05/10/19 [History Last Taken 04/06/21] aspirin 81 mg chewable tablet 81 mg PO DAILY@0800 ##30 09/24/19 [Rx Last Taken 04/06/21] atorvastatin 40 mg tablet 40 mg PO QHS #30 tabs 09/24/19 [Rx Last Taken 04/05/21] carvedilol 6.25 mg tablet 6.25 mg PO BID #60 tabs 09/24/19 [Rx Last Taken 04/06/21] lisinopril 10 mg tablet 10 mg PO DAILY #30 tabs 09/24/19 [Rx Last Taken 04/06/21] gabapentin 100 mg capsule 100 mg PO TID 08/25/22 [History Last Taken Unknown] ziprasidone HCl 20 mg capsule 60 mg PO QHS 08/25/22 [History Last Taken Unknown] Allergy/AdvReac Type Severity Reaction Status Date / Time No Known Allergies Allergy Verified 09/17/22 11:59 Surgical History History of left heart catheterization (09/24/19) Social History household members: other details: Lives in a alf with other MRDD individuals Smoking Status: Current every day smoker tobacco type: cigarettes alcohol intake: never details: Unknown with regards to alcohol use substance use type: does not use ROS <Dr. Matt Collazo MD - Last Filed: 09/25/22 20:05> ROS ED Constitutional Constitutional ED: Denies chills, fever(s), subjective, sweats or weight loss Eyes Eyes: Denies blurry vision, change in vision or diplopia ENT ENT ED: Denies ear pain, rhinorrhea or sore throat Cardiovascular Cardiovascular: Denies chest pain, orthopnea, palpitations or paroxysmal nocturnal dyspnea Respiratory/Chest Respiratory/Chest: Reports dyspnea; Denies cough, dyspnea on exertion, orthopnea, paroxysmal nocturnal dyspnea or sputum Gastrointestinal Gastrointestinal: Denies abdominal pain, constipation, diarrhea, nausea or vomiting Genitourinary Genitourinary ED: Denies dysuria, hematuria or urinary frequency Musculoskeletal Musculoskeletal: Denies arthralgias, back pain, myalgias or neck pain Integumentary Reports Abrasions; Denies abscess or rash Neurologic Neurologic: Reports headache(s); Denies paresthesias or weakness Psychiatric Psychiatric: Reports depression; Denies anxiety or suicidal ideation Endocrine Endocrinology: Denies polydipsia, polyphagia or polyuria Hematologic/Lymphatic Hematologic/Lymphatic: Reports none EXAM <Dr. Matt Collazo MD - Last Filed: 09/25/22 20:05> Physical Exam Const Vital Signs: 09/17/22 11:59 09/17/22 14:09 09/17/22 15:29 Temperature 98.5 F Temperature Source Temporal Pulse Rate 89 92 Respiratory Rate 28 H Blood Pressure 119/84 H 124/71 H Blood Pressure Mean 95 88 Pulse Ox 95 96 98 Oxygen Delivery Method Room Air Room Air Room Air 09/17/22 17:06 09/17/22 19:57 Temperature 97.3 F L Temperature Source Temporal Pulse Rate 73 Respiratory Rate 18 18 Blood Pressure 118/77 Blood Pressure Mean 90 Pulse Ox 98 Oxygen Delivery Method Room Air Room Air Positive well nourished, well developed and unkempt General Appearance ED: unkempt, well developed and NAD; Negative for cyanotic or diaphoretic HEENT Reports dry mucous membranes HEENT Narrative: There is an abrasion and contusion to the forehead. There is no clinical findings of basilar skull fracture. Mouth ED: Yes dry mucous membranes Mouth: dry mucous membranes Psych Appearance: unkempt <Giuseppe Sanchez MD - Last Filed: 09/17/22 21:02> Physical Exam Const Vital Signs: 09/17/22 11:59 09/17/22 14:09 09/17/22 15:29 Temperature 98.5 F Temperature Source Temporal Pulse Rate 89 92 Respiratory Rate 28 H Blood Pressure 119/84 H 124/71 H Blood Pressure Mean 95 88 Pulse Ox 95 96 98 Oxygen Delivery Method Room Air Room Air Room Air 09/17/22 17:06 09/17/22 19:57 Temperature 97.3 F L Temperature Source Temporal Pulse Rate 73 Respiratory Rate 18 18 Blood Pressure 118/77 Blood Pressure Mean 90 Pulse Ox 98 Oxygen Delivery Method Room Air Room Air MDM <Dr. Matt Collazo MD - Last Filed: 09/25/22 20:05> [facility] MDM Narrative Medical decision making narrative: Need to evaluate for metabolic or infectious cause otherwise feel this is exacerbation of his psychiatric disorder. I was informed the patient fled the hospital grounds. Police were summoned to retrieve him. He was found. He was brought back. Patient has been pink slipped since patient is at risk of harming himself. Bath from case management is aware the patient and taking appropriate steps for transfer to psychiatric facility. Patient is more forthcoming with information when he spoke to Ana M from case management. He told her that he is hearing voices. He went into the [facility] to . He was recently discharged from a psychiatric facility. She will obtain records to determine his correct diagnosis. Based on review of prior records there is no history of schizophrenia or schizoaffective disorder. Lab Data Attestation: I reviewed the patient's lab results. Lab results narrative: White count is elevated 15.7 with slight shift. There is no bandemia. Comprehensive metabolic panel is marked for an elevated BUN to creatinine ratio. Alcohol is less than 3. Talk screen is pending. Labs: Laboratory Results - last 24 hr 09/17/22 09/17/22 09/17/22 12:35 12:35 12:35 WBC 15.7 H RBC 5.31 Hgb 15.5 Hct 46.2 MCV 87.0 MCH 29.2 MCHC 33.5 RDW Std Deviation 40.9 RDW Coeff of Fernando 12.9 Plt Count 266 MPV 9.4 Immature Gran % (Auto) 0.400 Neut % (Auto) 80.6 H Lymph % (Auto) 13.8 L Drew % (Auto) 4.7 Eos % (Auto) 0.2 Baso % (Auto) 0.3 Absolute Neuts (auto) 12.6 H Absolute Lymphs (auto) 2.17 Nucleated RBC % 0 Sodium 140 Potassium 4.0 Chloride 104 Carbon Dioxide 23.0 Anion Gap 13 BUN 27 H Creatinine 1.04 Estim Creat Clear Calc 72.16 Est GFR (MDRD) Af Amer 93 Est GFR (MDRD) Non-Af 77 BUN/Creatinine Ratio 26.0 H Glucose 93 Calcium 9.7 Total Bilirubin 1.00 AST 57 H ALT 33 Alkaline Phosphatase 106 Total Protein 8.0 Albumin 4.1 Globulin 3.9 Albumin/Globulin Ratio 1.1 Urine Color Urine Clarity Urine pH Ur Specific [place] Urine Protein Urine Glucose (UA) Urine Ketones Urine Occult Blood Urine Nitrite Urine Bilirubin Urine Urobilinogen Ur Leukocyte Esterase Urine RBC Urine WBC Ur Squamous Epith Cells Urine Bacteria Hyaline Casts Urine Mucus Urine Opiates Screen Urine Methadone Screen Ur Barbiturates Screen Ur Phencyclidine Scrn Ur Amphetamines Screen MDMA (Ecstasy) Screen U Benzodiazepines Scrn Urine Cocaine Screen U Cannabinoids Screen Ur Drug Screen Comment Ethyl Alcohol < 3.0 09/17/22 09/17/22 17:30 17:30 WBC RBC Hgb Hct MCV MCH MCHC RDW Std Deviation RDW Coeff of Fernando Plt Count MPV Immature Gran % (Auto) Neut % (Auto) Lymph % (Auto) Drew % (Auto) Eos % (Auto) Baso % (Auto) Absolute Neuts (auto) Absolute Lymphs (auto) Nucleated RBC % Sodium Potassium Chloride Carbon Dioxide Anion Gap BUN Creatinine Estim Creat Clear Calc Est GFR (MDRD) Af Amer Est GFR (MDRD) Non-Af BUN/Creatinine Ratio Glucose Calcium Total Bilirubin AST ALT Alkaline Phosphatase Total Protein Albumin Globulin Albumin/Globulin Ratio Urine Color Yellow Urine Clarity Clear Urine pH 5.0 Ur Specific [place] 1.025 Urine Protein 30 H Urine Glucose (UA) Normal Urine Ketones 150 A* Urine Occult Blood 10 H Urine Nitrite Negative Urine Bilirubin Negative Urine Urobilinogen Normal Ur Leukocyte Esterase Negative Urine RBC 0 SEEN Urine WBC 0-5 SEEN Ur Squamous Epith Cells 0 SEEN Urine Bacteria RARE Hyaline Casts 0-5 SEEN Urine Mucus 0 SEEN Urine Opiates Screen NEGATIVE Urine Methadone Screen NEGATIVE Ur Barbiturates Screen NEGATIVE Ur Phencyclidine Scrn NEGATIVE Ur Amphetamines Screen NEGATIVE MDMA (Ecstasy) Screen NEGATIVE U Benzodiazepines Scrn NEGATIVE Urine Cocaine Screen NEGATIVE U Cannabinoids Screen NEGATIVE Ur Drug Screen Comment Ethyl Alcohol Radiography Chest X-Ray - ED: 2 View and Read by ED Physician (Independently viewed and read by me at 1253 as negative for acute process. There are chronic changes. Cardiac silhouette and size unremarkable. Perihilar regions unremarkable. Osseous trucks unremarkable.) Diagnostic Testing: Clinical Impression(s) from Imaging Studies Brain CT 09/17/22 12:16 IMPRESSION: Chronic involutional changes of the brain. Focal mucosal thickening at the base of the right maxillary sinus. Electronically Signed: Jorge Gore MD at 13:40 EST , Chest X-Ray 09/17/22 12:17 IMPRESSION: Hyperinflation. The lungs are clear. Electronically Signed: Jorge Gore MD at 13:04 EST , Hip/Pelvis X-Ray 09/17/22 15:35 IMPRESSION: Mild degenerative change left hip. There is no evidence of left hip dislocation or pelvic fracture. Electronically Signed: Tyrel Rios DO at 16:32 EST Reading Location ID and State: [address] [place] [address] Tel [phone], Service support , <Giuseppe Sanchez MD - Last Filed: 09/17/22 21:02> [facility] Narrative Medical decision making narrative: Need to evaluate for metabolic or infectious cause otherwise feel this is exacerbation of his psychiatric disorder. I was informed the patient fled the hospital grounds. Police were summoned to retrieve him. He was found. He was brought back. Patient has been pink slipped since patient is at risk of harming himself. [facility] from case management is aware the patient and taking appropriate steps for transfer to psychiatric facility. Patient is more forthcoming with information when he spoke to Ana M from case management. He told her that he is hearing voices. He went into the [facility] to . He was recently discharged from a psychiatric facility. She will obtain records to determine his correct diagnosis. Based on review of prior records there is no history of schizophrenia or schizoaffective disorder. Dr. Sanchez: Patient endorsed to me by Dr. Collazo to ensure placement on this patient with depression and inability to care for himself secondary to his psychiatric disorder. RN received a call from his power of trust and estates attorney who stated that he was having left hip pain. X-rays were obtained of the left hip interpreted by myself which shows no evidence of fracture. There are degenerative changes. He had been medically cleared for psychiatric admission. I was informed by case management that he has been accepted at [facility] for psychiatry. He will be transferred in stable condition. Lab Data Labs: Laboratory Results - last 24 hr 09/17/22 09/17/22 09/17/22 12:35 12:35 12:35 WBC 15.7 H RBC 5.31 Hgb 15.5 Hct 46.2 MCV 87.0 MCH 29.2 MCHC 33.5 RDW Std Deviation 40.9 RDW Coeff of Fernando 12.9 Plt Count 266 MPV 9.4 Immature Gran % (Auto) 0.400 Neut % (Auto) 80.6 H Lymph % (Auto) 13.8 L Drew % (Auto) 4.7 Eos % (Auto) 0.2 Baso % (Auto) 0.3 Absolute Neuts (auto) 12.6 H Absolute Lymphs (auto) 2.17 Nucleated RBC % 0 Sodium 140 Potassium 4.0 Chloride 104 Carbon Dioxide 23.0 Anion Gap 13 BUN 27 H Creatinine 1.04 Estim Creat Clear Calc 72.16 Est GFR (MDRD) Af Amer 93 Est GFR (MDRD) Non-Af 77 BUN/Creatinine Ratio 26.0 H Glucose 93 Calcium 9.7 Total Bilirubin 1.00 AST 57 H ALT 33 Alkaline Phosphatase 106 Total Protein 8.0 Albumin 4.1 Globulin 3.9 Albumin/Globulin Ratio 1.1 Urine Color Urine Clarity Urine pH Ur Specific [place] Urine Protein Urine Glucose (UA) Urine Ketones Urine Occult Blood Urine Nitrite Urine Bilirubin Urine Urobilinogen Ur Leukocyte Esterase Urine RBC Urine WBC Ur Squamous Epith Cells Urine Bacteria Hyaline Casts Urine Mucus Urine Opiates Screen Urine Methadone Screen Ur Barbiturates Screen Ur Phencyclidine Scrn Ur Amphetamines Screen MDMA (Ecstasy) Screen U Benzodiazepines Scrn Urine Cocaine Screen U Cannabinoids Screen Ur Drug Screen Comment Ethyl Alcohol < 3.0 09/17/22 09/17/22 17:30 17:30 WBC RBC Hgb Hct MCV MCH MCHC RDW Std Deviation RDW Coeff of Fernando Plt Count MPV Immature Gran % (Auto) Neut % (Auto) Lymph % (Auto) Drew % (Auto) Eos % (Auto) Baso % (Auto) Absolute Neuts (auto) Absolute Lymphs (auto) Nucleated RBC % Sodium Potassium Chloride Carbon Dioxide Anion Gap BUN Creatinine Estim Creat Clear Calc Est GFR (MDRD) Af Amer Est GFR (MDRD) Non-Af BUN/Creatinine Ratio Glucose Calcium Total Bilirubin AST ALT Alkaline Phosphatase Total Protein Albumin Globulin Albumin/Globulin Ratio Urine Color Yellow Urine Clarity Clear Urine pH 5.0 Ur Specific [place] 1.025 Urine Protein 30 H Urine Glucose (UA) Normal Urine Ketones 150 A* Urine Occult Blood 10 H Urine Nitrite Negative Urine Bilirubin Negative Urine Urobilinogen Normal Ur Leukocyte Esterase Negative Urine RBC 0 SEEN Urine WBC 0-5 SEEN Ur Squamous Epith Cells 0 SEEN Urine Bacteria RARE Hyaline Casts 0-5 SEEN Urine Mucus 0 SEEN Urine Opiates Screen NEGATIVE Urine Methadone Screen NEGATIVE Ur Barbiturates Screen NEGATIVE Ur Phencyclidine Scrn NEGATIVE Ur Amphetamines Screen NEGATIVE MDMA (Ecstasy) Screen NEGATIVE U Benzodiazepines Scrn NEGATIVE Urine Cocaine Screen NEGATIVE U Cannabinoids Screen NEGATIVE Ur Drug Screen Comment Ethyl Alcohol Radiography Diagnostic Testing: Clinical Impression(s) from Imaging Studies Brain CT 09/17/22 12:16 IMPRESSION: Chronic involutional changes of the brain. Focal mucosal thickening at the base of the right maxillary sinus. Electronically Signed: Jorge Gore MD at 13:40 EST , Chest X-Ray 09/17/22 12:17 IMPRESSION: Hyperinflation. The lungs are clear. Electronically Signed: Jorge Gore MD at 13:04 EST , Hip/Pelvis X-Ray 09/17/22 15:35 IMPRESSION: Mild degenerative change left hip. There is no evidence of left hip dislocation or pelvic fracture. Electronically Signed: Tyrel Rios DO at 16:32 EST Reading Location ID and State: [address] [place] [address] Tel [phone], Service support , Discharge Plan Triage Chief Complaint: Lower Extremity Injury ED Provider: Matt Collazo Dx/Rx/DC Orders Clinical Impression: Depression, Suicidal thoughts, Auditory hallucinations, CHI (closed head injury), Abrasions of multiple sites, Chronic schizoaffective disorder with acute exacerbation Prescriptions: No Action colestipol 1 tablet 1 gm PO BID lisinopril 10 MG tablet 10 mg PO DAILY Qty: 30 0RF aspirin 81 MG tablet,chewable 81 mg PO DAILY@0800 Qty: 30 0RF atorvastatin 40 MG tablet 40 mg PO QHS Qty: 30 0RF carvedilol 6.25 MG tablet 6.25 mg PO BID Qty: 60 0RF ziprasidone HCl 20 mg capsule 60 mg PO QHS gabapentin 100 mg capsule 100 mg PO TID Primary Care Provider: Manolo Brewer Referrals: Manolo Brewer DO [Primary Care Provider] - Disposition Disposition: Psychiatric Hospital or Unit Discharge Location: [facility] Discharge Date/Time: 09/17/22 23:08
[2022-09-17 13:06] LABS: ALB/GLOB Ratio 1.1 RATIO (0.9-2.4); AST(SGOT) 57 U/L (15-37); Alanine Aminotransfer ALT/SGPT 33 U/L (16-61); Albumin, Serum 4.1 g/dL (3.2-5.0); Alkaline Phosphatase 106 U/L (45-117); Anion Gap 13 (5-15); BUN 27 mg/dL (7-18); Calcium,Total 9.7 mg/dL (8.5-10.1); Chloride 104 mmol/L (98-107); Creatinine, Serum 1.04 mg/dL (0.70-1.30); EST Glomerular Filtration Rate 77 mL/min (>60); Est Glom Filt Rate - Afr Amer 93 mL/min (>60); Estimated Creatinine Clearance 72.16 ml/min; Globulin 3.9 g/dL (2.2-4.2); Glucose 93 mg/dL (74-106); Sodium Level 140 mmol/L (136-145)
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
--- NOTE | 2022-09-17 14:08 | ED.RN ---
PT RETURNED TO ED BY PD. PT COOPERATIVE, PUT GOWN ON AND GET BACK IN BED.
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
--- NOTE | 2022-09-17 15:30 | ED.RN ---
THIS RN TOOK PHONE CALL FROM MARIA R MEG (PTS DAUGHTER). THIS RN UPDATED MS. WEAVER ON PTS STATUS AND ANSWERED ALL QUESTIONS. PTS DAUGHTER REQUESTS ANY UPDATES OF PLACEMENT AND CHANGES IN PT CONDITION. PHONE NUMBER IS [phone]. MS. WEAVER ALSO REQUESTS AN XRAY OF PTS LEFT HIP DUE TO PT COMPLAINING OF PAIN AT TIME OF EMS ARRIVAL. DR. JESUS NOTIFIED OF REQUEST.
--- NOTE | 2022-09-17 15:35 | RAD_ITS ---
STUDY: X-RAY - PELVIS AND LEFT HIP REASON FOR EXAM: Male, 62 years old. Pain in the left hip after fall. TECHNIQUE: 3 views of the pelvis and hip. COMPARISON: None. FINDINGS: There is a non-specific bowel gas pattern. Normal visualized soft tissue structures. There are multiple calcified phleboliths. Normal bilateral iliac wings, sacroiliac joints and visualized sacrum. Normal bilateral superior and inferior pubic rami. Normal pubic symphysis. Normal bilateral ischial tuberosities. Normal visualized left femoral head. Normal left acetabulum. There is mild articular joint space narrowing of the left hip. RAD/HIP, UNI W/ Pelvis 2-3 Views IMPRESSION: Mild degenerative change left hip. There is no evidence of left hip dislocation or pelvic fracture. Electronically Signed: Tyrel Rios DO at 16:32 EST ,
--- NOTE | 2022-09-17 16:05 | ED.RN ---
THIS RN RECEIVED VERBAL PERMISSION FROM THE PT TO MAIL [facility] DIRECTIVES: HEALTHCARE POWER OF MOLDER APPRENTICE PAPERWORK BACK TO DAUGHTER MARIA R WEAVER.
--- NOTE | 2022-09-17 16:09 | ED.RN ---
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 [address] PER SEBASTIAN. THIS CALL TOOK PLACE AT 1607. MS. WEAVER AND THE PT REPORT NO FURTHER NEEDS AT THIS TIME.
--- NOTE | 2022-09-17 17:38 | CM.ED ---
Addendum entered by Ana M Avalos 09/17/22 17:42: SW Note FREEMAN called Eleni at [facility] and advised that patient accepted at [facility]. Ana M HARRIS JEFFY Original Note: FREEMAN Note Patient accepted at [facility] perNaty at [facility]. Accepting MD is Dr. Arenas. Going to [facility] floor and Rn to RN is [phone]. MD and snowboarder updated. FREEMAN called patient's daughter, Laura Krishna. She said that patient was sitting at her house and was repeatedly beating himself with a glass coffee cup. Laura said that patient stated that he wants to and end it all and take his self out. Lauar said that she reported this to the PCP and the PCP said that she was going to call the squad and have patient brought to the ED fore evaluation. Patient has a dementia diagnosis. Patient is prone to run. Patient is linked with [facility] where he will get meals and RN and they are just waiting for PCP to complete paperwork. Laura said that patient resides with her and he says that she wants him to leave but that is not the case. Laura said that patient does not want to go to a SNF. Laura stated that she does not have the financial resources to apply for guardianship for patient. FREEMAN advised Laura that patient is going to [facility] and provided her with the phone number. Plan: [facility] for patient
[2022-09-17 17:40] LABS: Mucous, Urine 0 SEEN /hpf (<or=2+); Red Blood Cells-Urine 0 SEEN /hpf (0-5); Squamous Epithelial Cells - UA 0 SEEN /hpf (0-5)
--- NOTE | 2022-09-17 17:49 | ED.RN ---
Addendum entered by Salima Rodgers 09/17/22 17:53: THIS RN ATTEMPTED TO CALL MARIA R WEAVER AGAIN AT 1754 TO UPDATE AND PHONE WENT TO [employer]. Original Note: THIS RN ATTEMPTED TO CALL MARIA R WEAVER AT 1749 TO UPDATE HER ON PTS XRAY RESULTS. PHONE WENT STRAIGHT TO [employer].
--- NOTE | 2022-09-17 17:56 | ED.RN ---
THIS RN TOOK PHONE CALL FROM MARIA R WEAVER AND UPDATED HER ON PT CONDITION AT [phone].
[2022-09-17 17:57] LABS: Color, Urine Yellow (Yellow); Glucose, Dipstick Normal (Normal); Leukocyte Esterase-Dipstick Negative /ul (Negative); Nitrite-Dipstick Negative (Negative); Occult Blood-Urine 10 /ul (Negative); Protein-Dipstick 30 mg/dl (Negative); Specific Gravity, Urine 1.025 (1.002-1.030); Urine Bilirubin Dipstick Negative (Negative); Urine Clarity Clear (Clear); Urine Urobilinogen Normal (Normal)
[2022-09-17 17:59] LABS: Amphetamine Urine VISTA NEGATIVE (<1000 ng/mL); Barbiturate Urine VISTA NEGATIVE (< 200 ng/mL); Benzodiazepine Urine VISTA NEGATIVE (< 200 ng/mL); Cocaine Urine VISTA NEGATIVE (< 300 ng/mL); Ecstacy Urine VISTA NEGATIVE (< 500 ng/mL); Methadone Urine VISTA NEGATIVE (< 300 ng/mL); PCP Urine VISTA NEGATIVE (< 25 ng/mL); THC Urine VISTA NEGATIVE (< 50 ng/mL); Vista UDS pH Range 4
[2022-09-17 18:09] LABS: Ketone-Dipstick 150 mg/dl (Negative)
[2022-09-17 18:17] LABS: Bacteria RARE /hpf (None Seen); Hyaline Cast 0-5 SEEN /lpf (0-5); White Blood Cells 0-5 SEEN /hpf (0-5)
--- NOTE | 2022-09-17 22:29 | ED.RN ---
[facility] and physicians spoke independently then called [facility] stating this patient will be transported tonight instead of in the AM due to them declining to accept another patient until am.
--- NOTE | 2022-09-17 23:01 | ED.RN ---
THIS RN CALLED REPORT TO [facility] AT 2250. REPORT GIVEN TO FORTINO BANERJEE.
--- NOTE | 2022-09-17 23:07 | ED.RN ---
THIS RN CALLED MARIA R WEAVER TO NOTIFY HER THAT PT WAS TAKEN TO [facility] BY PHYSICIANS AT 2305.
== END 2022-09-17 23:08 ==
PROVIDERS: Emergency Provider Emergency Medicine; PCP Student in an Organized Health Care Education/Training Program; Visit Provider Emergency Medicine
DX: S09.90XA Unspecified injury of head, initial encounter (principal); F25.9 Schizoaffective disorder, unspecified; E78.5 Hyperlipidemia, unspecified; I10 Essential (primary) hypertension; R45.851 Suicidal ideations; F32.A Depression, unspecified; R44.0 Auditory hallucinations; K21.9 Gastro-esophageal reflux disease without esophagitis; Z86.73 Personal history of transient ischemic attack (TIA), and cerebral infarction without residual deficits; Z79.899 Other long term (current) drug therapy; Z79.82 Long term (current) use of aspirin; F17.210 Nicotine dependence, cigarettes, uncomplicated; S00.81XA Abrasion of other part of head, initial encounter; S00.83XA Contusion of other part of head, initial encounter; S80.811A Abrasion, right lower leg, initial encounter; S80.812A Abrasion, left lower leg, initial encounter
CPT/HCPCS: 70450; 71046; 73502; 80053; 80307; 81001; 82077; 85025; 87811; 99285; A4216